=== PATIENT | female | born 1940 | race Hispanic/Latino ===

== ENCOUNTER 2018-08-04 12:55 | Inpatient (IN) | payer MEDICARE, OTHER ==
[~2018-08-04] VITALS: Ht 170.2 cm; Wt 74.0 kg
[~2018-08-04 12:55] MED LIST: AMLODIPINE BESYL5 MG PO; ANALPRAM HC 2.530 GM RC; ANASTROZOLE1 MG PO; ARICEPT5 MG PO; BUPROPION XL150 MG PO; CALCIUM CARBON200 MG PO; COLACE100 MG/10 NG; DEXILANT; DIFLUCAN100 MG PO; FAMOTIDINE20 MG PO; FOLIC ACID1 MG PO; GABAPENTIN300 MG PO; JANUMET XR 50-1 EAC1 PO; KEFLEX500 MG PO; LEVOTHYROXINE150 MCG PO; LORAZEPAM0.5 MG PO; METAMUCIL FIBE3.4 GM PO; MYERBETRIQ; MYRBETRIQ50 MG PO; NAMENDA10 MG PO; OXYBUTYNIN PO; PAROXETINE HCL20 MG PO; PAXIL20 MG; POLYETHYLENE GL17 GM PO; PRAVASTATIN SOD20 MG PO; PRAVASTATIN SOD40 MG; PRAVASTATIN SOD40 MG PO; PREMARIN45 GM VG; Psyllium PO; RANITIDINE HCL300 M1 PO; SENNA-S TABLET1 EA PO; SEROQUEL25 MG PO; VITAMIN B-121000 MC2 SL; VITAMIN D2000 UNIT PO; Z LEVOTHROID; Z.0.DEXILANT60 MG PO; Z.0.PLAVIX75 MG; Z.0.VIIBRYD40 MG
[2018-08-04] MEDS ORDERED: ASPIRIN 81 MG CHEW TAB PO ONE (13:15)
[2018-08-04 13:45] LABS: BASOPHILS # (AUTO) 0.1 (0.0-0.1); BASOPHILS % 0.6 % (0.0-1.0); EOSINOPHILS % 0.4 % (0.0-6.0); HEMATOCRIT 35.2 % (34.2-44.1); HEMOGLOBIN 11.8 g/dL (12.0-16.0); LYMPHOCYTES # (AUTO) 1.6 (1.0-3.2); LYMPHOCYTES % 19.8 % (18.0-39.1); MEAN CORPUSCULAR HEMOGLOBIN 30.1 pg (28-32); MEAN CORPUSCULAR HGB CONC 33.5 g/dL (31-35); MEAN CORPUSCULAR VOLUME 89.8 fL (81-99); MONOCYTES # (AUTO) 0.6 (0.2-0.8); MONOCYTES % 6.7 % (4.4-11.3); NEUTROPHILS # (AUTO) 5.9 (2.1-6.9); NEUTROPHILS % 71.8 % (38.7-80.0); PLATELET COUNT 197 x10e3/uL (140-360); RED BLOOD COUNT 3.92 x10e6/uL (3.6-5.1); RED CELL DISTRIBUTION WIDTH 13.5 % (11.7-14.4)
[2018-08-04 13:54] LABS: INR 0.9
[2018-08-04 14:10] LABS: ALBUMIN 4.2 g/dL (3.5-5.0); ALBUMIN/GLOBULIN RATIO 1.4 (0.8-2.0); ANION GAP 19.4 mmol/L (8-16); CREATININE, SERUM 1.81 mg/dL (0.57-1.11); MAGNESIUM 1.5 MG/DL (1.3-2.1); POTASSIUM 3.4 mmol/L (3.5-5.1)
[2018-08-04 14:30] LABS: CREATINE KINASE MB 1.6 ng/mL (0-5.0); THYROID STIMULATING HORMONE 0.959 uIU/mL (0.350-4.940)
--- NOTE | 2018-08-04 14:35 | Diagnostic Imaging Report ---
EXAMINATION: Head and cervical spine CT without contrast. HISTORY: Syncope, fall, trauma and pain. COMPARISON: Head CT of 02/29/2012 TECHNIQUE: Multidetector axial images were obtained about contrast from the foramen magnum to the vertex and through the cervical spine. The images were reconstructed using brain and bone algorithms. Thin section brain images were reformatted into coronal and sagittal planes. Dose modulation, iterative reconstruction, and/or weight based adjustment of the mA/kV was utilized to reduce the radiation dose to as low as reasonably achievable. HEAD CT FINDINGS: Skull: No lytic or blastic lesions. No fractures. Parenchyma: Progression to moderate confluent mildly frontal white matter chronic microvascular ischemic changes. No mass, hemorrhage or CT evidence of acute vascular insult. Brain volume: Mild generalized volume loss Ventricles: No hydrocephalus or displacement. Arteries: No density suggestive of thrombus. Dural sinuses: No abnormal density. Extra-axial spaces: No abnormal density. Foramen magnum: No mass, Chiari malformation, or basilar invagination. Sella: No obvious mass. Paranasal/mastoid sinuses: Imaged portions unremarkable. CERVICAL SPINE CT FINDINGS: Alignment:Normal alignment and lordosis. Soft tissues: Normal. Vertebrae: Normal height and density. No acute fracture, infection or neoplasm. Degenerative changes: C1-C2: Degenerative changes without stenoses C2-C3: Normal C3-C4: Disc osteophyte complex formation, uncovertebral and facet hypertrophy worst on the right. Moderate right and mild left foraminal stenosis. Mild canal stenoses C4-C5: Uncovertebral and facet hypertrophy mainly on the right. Moderately severe right foraminal stenosis. C5-C6: Disc osteophyte, inflammation, bilateral uncovertebral and facet arthrosis. Moderate it least severe bilateral foraminal stenoses. C6-C7: Unremarkable C7-T1: Unremarkable IMPRESSION: Head CT: 1. No acute postraumatic intracranial hemorrhage. 2. Moderate chronic microvascular ischemic changes. Otherwise no changes compared to head CT on 02/29/2012. Cervical spine CT: 1. No acute fractures or dislocations. 2. Chronic degenerative changes as described. Note: Acute post traumatic spinal cord, vascular or ligamentous injury cannot adequately be assessed with CT. Signed by: Dr. Anne Sosa M.D. on 08/04/2018 2:32 PM
--- NOTE | 2018-08-04 14:42 | Diagnostic Imaging Report ---
Examination: Single AP view of the chest. COMPARISON: 09/16/2017 INDICATION: Syncope DISCUSSION: Lungs are well-inflated. No focal consolidation, pleural effusion, or pneumothorax. Mild, coarse prominence of the pulmonary interstitium is unchanged. Stable cardiomediastinal contour. Surgical clips along the left lateral chest wall. IMPRESSION: No acute cardiopulmonary abnormality. Signed by: Dr. Abelino Ramirez M.D. on 08/04/2018 2:38 PM
[2018-08-04] MEDS ORDERED: PANTOPRAZOLE SO40 MG PO (17:29)
[2018-08-04] MEDS ORDERED: GABAPENTIN300 MG PO (17:29)
[2018-08-04] MEDS ORDERED: JANUMET 50-1,01 EACH PO (17:29)
[2018-08-04] MEDS ORDERED: SODIUM CHLORIDE 0.9% 1000ML 1,000 ML IV SCH (18:00)
[2018-08-04 18:04] LABS: CLARITY,URINE SL CLOUDY (CLEAR); COLOR,URINE YELLOW (YELLOW); KETONES,URINE TRACE (NEGATIVE); LEUKOCYTE ESTERASE ,URINE 1+ (NEGATIVE); NITRITE,URINE NEGATIVE (NEGATIVE); PROTEIN,URINE DIPSTICK NEGATIVE (NEGATIVE); URINE UROBILINOGEN 0.2 mg/dL (0.2 - 1)
[2018-08-04 18:05] LABS: BILIRUBIN,URINE NEGATIVE (NEGATIVE)
[2018-08-04 18:12] LABS: BACTERIA,URINE MANY /HPF
[2018-08-05] VITALS (12 sets, daily range): BP systolic 119–156; BP diastolic 56–97
[2018-08-05] MEDS: SODIUM CHLORIDE 0.9% 1000ML 1,000 ML IV SCH ×2 (04:41→14:48)
[2018-08-05] MEDS ORDERED: NON-FORMULARY MEDICATION (Levothyroxine Sodium 175 MCG) PO SCH (09:00)
[2018-08-05] MEDS: LEVOTHYROXINE SODIUM 75 MCG TAB PO SCH (09:00)
[2018-08-05] MEDS: LEVOTHYROXINE SODIUM 100 MCG TAB PO SCH (09:00)
[2018-08-05] MEDS: AMLODIPINE BESYLATE 5 MG TAB PO SCH (09:05)
[2018-08-05] MEDS: PANTOPRAZOLE SOD 40 MG TABEC PO SCH (09:05)
[2018-08-05] MEDS: LEVOFLOXACIN 500MG/D5W 100ML 100 ML IV SCH (09:05)
[2018-08-05] MEDS: ANASTROZOLE 1 MG TAB PO SCH (09:05)
[2018-08-05] MEDS: CLOPIDOGREL BISULFATE 75 MG TAB PO SCH (09:05)
[2018-08-05 09:18] LABS: CHOL/HDL RATIO 4.3 (3.0-3.6)
[2018-08-05 09:37] LABS: THYROID STIMULATING HORMONE 0.833 uIU/mL (0.350-4.940)
--- NOTE | 2018-08-05 14:08 | History and Physical ---
PRIMARY CARE PHYSICIAN: Dr. Lozada CHIEF COMPLAINT: Confusion. HISTORY OF PRESENT ILLNESS: This is a 78-year-old woman with a history of diabetes mellitus type 2, dementia and depression, now developing worsening confusion. All history has been obtained per the at the bedside. The notes the patient was confused. No other history he can provide, however. The patient was brought to the hospital. Here she was found to have a urinary tract infection and acute kidney injury. She was admitted for further evaluation and management. PAST MEDICAL HISTORY: Dementia, depression, diabetic neuropathy, diabetes mellitus type 2, pyelonephritis, urinary tract infection, hypertension, hyperlipidemia, hypothyroidism, constipation, acute kidney injury. PAST SURGICAL HISTORY: Hysterectomy, cholecystectomy, appendectomy. ALLERGIES: PER ELECTRONIC MEDICAL RECORD. FAMILY/SOCIAL HISTORY: The patient is . She has 3 children. No alcohol, illicits or cigarettes. MEDICATIONS: Per electronic medical record. REVIEW OF SYSTEMS: Unreliable. PHYSICAL EXAMINATION VITAL SIGNS: Have been reviewed. GENERAL APPEARANCE: A tired-appearing woman resting in bed. HEENT: Anicteric. CARDIOVASCULAR: Normal S1 and S2. LUNGS: Moderate breath sounds. ABDOMEN: Soft, nontender, nondistended. EXTREMITIES: No edema or calf tenderness. NEUROLOGIC: Confused. She moves all extremities. Alert and oriented times 2. LABS: Reviewed. MEDICATIONS: Reviewed. ASSESSMENT: This is a 78-year-old woman. 1. Urinary tract infection. 2. Acute kidney injury. 3. Diabetes mellitus, type 2. 4. Hypothyroidism. 5. Metabolic acidosis 6. Hypokalemia. 7. Diabetic neuropathy. 8. Acute metabolic encephalopathy. PLAN 1. Rehydrate the patient. 2. Antibiotics. 3. Follow up cultures. 4. Hemoglobin A1c and lipid panel. 5. Imaging has been reviewed and is negative. 6. Continue Plavix for stroke prophylaxis. 7. Use PPI for GI prophylaxis. 8. Use SCDs for DVT prophylaxis. 9. Follow up labs. Job#: [id number]
--- NOTE | 2018-08-05 15:20 | Consultation ---
DATE OF CONSULTATION: August 05, 2018 CARDIOLOGY CONSULTATION REQUESTING PHYSICIAN: Dr. Clinton Anderson REASON FOR CONSULTATION: Syncope. HISTORY OF PRESENT ILLNESS: This is a 78-year-old woman with history of diabetes mellitus, hypertension, hyperlipidemia, hypothyroidism, dementia, and frequent urinary tract infections who was found down by her family. All history is obtained from the family, from the daughter at bedside due to the patient's baseline dementia and altered mental status. The family reports the patient has been more confused for the last 2 weeks and has been hallucinating people who are not present. The patient has not endorsed any chest pain, shortness of breath, palpitations, edema, or orthopnea. She has not reported any fever, chills, or cough. Yesterday, the patient's found that the patient on the ground. The daughter is unclear if the patient had lost consciousness. REVIEW OF SYSTEMS: Negative, except as per HPI. PAST MEDICAL HISTORY 1. Diabetes mellitus. 2. Hypertension. 3. Hyperlipidemia. 4. Hypothyroidism. 5. Frequent urinary tract infections. 6. Dementia. PAST SURGICAL HISTORY 1. Hysterectomy. 2. Cholecystectomy. 3. Appendectomy. ALLERGIES: PLEASE SEE EMR. MEDICATIONS: Please see medication list. SOCIAL HISTORY: No tobacco, alcohol, or illicit drugs. FAMILY HISTORY: Noncontributory to current illness. PHYSICAL EXAMINATION VITALS: Temperature 96.3 degrees, pulse 92, respiratory rate 18, blood pressure 119/50, oxygen saturation 99% on room air. GENERAL: Elderly woman, well-developed, well-nourished, pleasantly confused. HEENT: Normocephalic and atraumatic. Pupils are equal. No scleral icterus. NECK: Supple. No thyromegaly or cervical lymphadenopathy. No carotid bruits. LUNGS: Clear to auscultation bilaterally. No wheezes or crackles. CARDIOVASCULAR: Normal rate, regular rhythm. No murmur. Normal S1 and S2. ABDOMEN: Soft. Nontender. EXTREMITIES: No edema. NEURO: Nonfocal exam. LABS: WBC 8.2, hemoglobin 11.8, hematocrit 35.2, platelets 197. Sodium 142, potassium 3.4, chloride 106, CO2 19, BUN 34, and creatinine 1.81. Cholesterol 150, triglycerides 192, LDL 77, HDL 35. Troponin is 0.004. Urine culture growing gram-negative rods. CT with no acute fracture or dislocations. Chronic degenerative changes. CT brain, no acute posttraumatic intracranial hemorrhage. Chronic microvascular ischemic changes, otherwise no change compared to CT head February 29, 2012. Chest x-ray, no acute cardiopulmonary abnormality. EKG with normal sinus rhythm, ST and T wave abnormality, prolonged QT. IMPRESSION 1. Syncope. 2. Urinary tract infection. 3. Acute kidney injury. 4. Diabetes mellitus. 5. Hypertension. 6. Hyperlipidemia. 7. Hypothyroidism. 8. Altered mental status. 9. Dementia. RECOMMENDATIONS: Carotid Doppler and echocardiogram had been ordered. We will review the images once they are available. Monitor patient on telemetry for any arrhythmias. Antibiotics per primary service. Suspect patient's altered mental status may be delirium on top of baseline dementia. Defer further evaluation to primary. Thank you for this consult. We will continue to follow. Job#: [id number] SERNIA LOVE
[2018-08-05] MEDS: TRAZODONE HCL 50 MG TAB PO SCH (20:41)
[2018-08-05] MEDS: DONEPEZIL HCL 5 MG TAB PO SCH (20:41)
[2018-08-05] MEDS: PAROXETINE HCL 20 MG TAB PO SCH (20:41)
[2018-08-05] MEDS: GABAPENTIN 300 MG CAP PO SCH (20:41)
[2018-08-05] MEDS: METRONIDAZOLE 500MG/NS 100ML 100 ML IV SCH (22:31)
[2018-08-06] VITALS (10 sets, daily range): BP systolic 130–158; BP diastolic 60–84
--- NOTE | 2018-08-06 04:01 | Consultation ---
DATE OF CONSULTATION: August 04, 2018 NEUROLOGY CONSULTATION HISTORY OF PRESENT ILLNESS: Ms. Lawson is a 78-year-old right-hand dominant woman with past medical history significant for hyperlipidemia, diabetes mellitus type 2, thyroid disease, and dementia, probably the Alzheimer's type, admitted to [facility] on August 04, 2018 with worsening confusion. Unfortunately, due to the patient's known history of dementia and superimposed metabolic encephalopathy, the patient is unable to provide history. The history is provided by family members who are at the bedside. The patient's family members report significantly worsened confusion beginning several days ago. In addition to worsening of baseline confusion, the patient's family endorses visual hallucinations. Specifically, the patient had seen relatives as well as inanimate objects moving along the [place]. The patient's family members endorse poor oral intake over the last several days as well as poor sleep. Ms. Lawson experienced a fall without injury on the day of admission. The fall prompted the patient's presentation to the emergency center at [facility]. In addition to the aforementioned symptoms, Ms. Lawson endorses burning with urination as well as urinary urgency. Neither the patient nor her family endorsed a visual field cut or other disturbance, dysarthria, aphasia, facial droop, hemiparesis, hemihypesthesia, worsening gait impairment, or dizziness. As stated above, Ms. Lawson presented to the emergency center at [facility] on August 04, 2018 for evaluation of her multiple symptoms. As part of her routine evaluation, the patient was found to have a urinary tract infection as well as acute kidney injury secondary to dehydration. The patient was admitted to [facility] as an inpatient for further evaluation and treatment. The patient's family reports Ms. Lawson was diagnosed with dementia, probably of the Alzheimer's type between 2 to 4 years ago. Ms. Lawson is under the care of a neurologist at [facility]. Initially, the patient was treated with donepezil 10 mg by mouth at bedtime daily. Sometime later, treatment with memantine 10 mg by mouth twice daily was prescribed in addition to donepezil. However, for unknown reasons, treatment with memantine was recently discontinued. The patient's family members report being told approximately 1-1/2 years ago, Ms. Lawson has [id number] dementia. REVIEW OF SYSTEMS: Diarrhea, burning with urination, urinary urgency, confusion, generalized weakness, and fall. Otherwise, the 12-point review of systems is negative. PAST MEDICAL HISTORY: Hyperlipidemia, diabetes mellitus type 2 complicated by peripheral neuropathy, thyroid disease, multiple urinary tract infections, gastroesophageal reflux disease, left breast cancer in remission for 18 months, dementia, probably of the Alzheimer's type, and possible rheumatic fever as a child. PAST SURGICAL HISTORY: Left breast lumpectomy, hysterectomy, bilateral partial knee replacements, cholecystectomy, bladder suspension, appendectomy, and bilateral cataract removal. PAST HOSPITALIZATIONS: Surgeries/procedures as listed, childbirth x3, and multiple urinary tract infections. FAMILY MEDICAL HISTORY: Hypertension, coronary artery disease with myocardial infarctions, strokes, and cancer. SOCIAL HISTORY: Ms. Lawson is . She is retired. The patient and her family members do not endorse current or prior tobacco, alcohol, or recreational drug use. HOME MEDICATIONS: Please see the list of home medications available in the electronic medical records. ALLERGIES: PENICILLIN, CODEINE, HYDROCODONE, RAMIPRIL, AND SUCRALFATE. NO KNOWN FOOD ALLERGIES. NO KNOWN ALLERGIES TO LATEX. NO KNOWN ALLERGIES TO IODINE OR OTHER CONTRAST MATERIALS. PHYSICAL EXAMINATION VITAL SIGNS: Height 67 inches, weight 164 pounds, BMI 25.7 kg/m sq, blood pressure 149/70 mmHg, pulse 82 beats per minute, respiratory rate 16 breaths per minute, and oxygen saturation 99% on room air. GENERAL: The patient is awake and alert, tearful throughout the encounter. HEENT: Normocephalic, atraumatic. Pupils are surgical. Moist mucous membranes. NECK: Supple. No appreciable thyromegaly. No appreciable carotid bruits. CARDIOVASCULAR: S1 and S2. Regular rate and rhythm. No murmurs, rubs, or gallops. RESPIRATORY: Clear to auscultation bilaterally. No wheezes, rhonchi, or rales. EXTREMITIES: No clubbing, cyanosis, or edema. The posterior tibial and dorsalis pedis pulses are 1+ and symmetric. SKIN: Warm and dry. There is a small abrasion over the right knee. NEUROLOGIC MEMORY/ATTENTION: The patient is awake and alert. Ms. Lawson becomes more tearful when asked orientation questions. She is unable to state her full name. CRANIAL NERVES: Cranial nerve I-not tested. Cranial nerve II, III, IV, and -pupils are surgical. Extraocular movements are intact. No nystagmus. Cranial nerve V-sensation to light touch and pinprick is intact in the bilateral V1 through V3 distributions. Strength in the temporalis and masseter muscles is within normal limits. Cranial nerve VII-the face is symmetric as are all facial movements. Strength is within normal limits. Cranial nerve VIII-hearing is diminished to finger rub bilaterally. Cranial nerve IX, X-the soft palate elevates equally and symmetrically. Cranial nerve XI-normal strength of the bilateral sternocleidomastoid and trapezius muscles. Cranial nerve XII-the tongue protrudes midline and moves symmetrically from side to side. STRENGTH: Bulk is normal. Strength is 5/5 in the bilateral deltoids, biceps, triceps, wrist flexors and extensors, finger flexors and extensors, intrinsic hand muscles, hip flexors, knee flexors and extensors, ankle dorsiflexion and plantarflexion, and intrinsic foot muscles. Tone is normal. DTRs: Deep tendon reflexes are 1+ and symmetric at the triceps, biceps, brachioradialis, and patellas. Deep tendon reflexes are absent and symmetric at the Achilles. Plantar responses are flexor bilaterally. SENSATION: Sensation is intact to light touch in both arms and both legs. CEREBELLAR: Ms. Lawson has some difficulty performing [id number] and heel-marcelo movements due to a lack of understanding of the instructions. Despite this, there is no dysmetria or other impairment appreciated. GAIT: The patient was observed to ambulate with physical therapy. Ms. Lawson utilizes rolling walker. Gait was slowed with a shortened stride lengths. Spontaneous gait appeared unsteady. SPEECH: Spontaneous speech is normal without appreciable dysarthria or aphasia. Repetition is intact. INVOLUNTARY MOVEMENTS: None. PRONATOR DRIFT: None. LABORATORY DATA: The patient's comprehensive metabolic panel is significant for a potassium of 3.4, carbon dioxide 19, anion gap 19.4, BUN of 34, creatinine of 1.81, and an estimated GFR of 27. Cardiac enzymes are negative x1. Lipase 21, TSH is 0.959, and hemoglobin A1c 5.6. Total cholesterol 150, triglycerides 192, LDL cholesterol 77, and HDL cholesterol 35. The CBC with differential and platelets reveals a white blood cell count of 8.23 with a normal differential. The hemoglobin and hematocrit are 11.5 and 35.2, respectively. The platelet count is 197. The coagulation profile is within normal limits. A urinalysis was significant for a specific gravity of 1.030, 1+ leukocyte esterase, 6-10 white blood cells, and many bacteria. A urine culture collected upon admission is growing Gram-negative bacilli. DIAGNOSTIC STUDIES: Electrocardiogram on August 04, 2018: Normal sinus rhythm at 66 beats per minute. Chest x-ray on August 04, 2018: No acute cardiopulmonary abnormality. CT of the brain without contrast on August 04, 2018: On my review, there is no evidence of recent large territorial ischemia, hemorrhage, mass, or mass affect. There is diffuse cerebral atrophy. There are findings compatible with moderate chronic small vessel ischemic disease. The neuroradiologist noted no significant changes when compared to the CT of brain performed on February 29, 2012. CT of the cervical spine without contrast on August 04, 2018: 1. No acute fractures or dislocations. 2. Chronic degenerative changes as described. Bilateral carotid artery ultrasound with Doppler on August 05, 2018: Atherosclerosis without hemodynamically significant stenosis at the bilateral carotid bulbs and bifurcations. There was antegrade flow in the bilateral vertebral arteries. ASSESSMENT AND PLAN: Ms. Lawson is a 78-year-old right-hand dominant woman with multiple medical problems, including dementia, probably of the Alzheimer's type, admitted to [facility] with worsening confusion and visual hallucinations in the setting of a urinary tract infection and acute kidney injury. Other than confusion and disorientation, the patient's neurological examination is nonfocal. Her laboratory data and other diagnostic studies have been reviewed and are documented above. Based on the patient's history and findings on her neurological examination, I strongly suspect Ms. Lawson has a moderately severe dementia, probably of the Alzheimer's type. However, the degree of small vessel ischemic disease seen on her CT of the brain without contrast indicates a possible component of vascular dementia as well. The patient's recent worsening confusion is due to the presence of a urinary tract infection and acute kidney injury. RECOMMENDATIONS 1. Continue intravenous antibiotics for the urinary tract infection. 2. Continue fluid resuscitation for acute kidney injury. 3. Continue the patient's home medication of donepezil 10 mg by mouth at bedtime daily. 4. As mentioned in the history of present illness, the patient's family members report that patient has not slept well for several days. A lack of sleep will exacerbate the underlying dementia as well as the confusion from the urinary tract infection and acute kidney injury. Therefore, Ms. Lawson will be prescribed trazodone 25 mg by mouth at bedtime for sleep. 5. Avoid treatment with sedative/hypnotic and pain medications as these will alter the sensorium. 6. Employ environmental cues to minimize the occurrence of delirium. 7. Defer treatment of the remaining medical comorbidities to the primary and other services following the patient. Job#: [id number] TRISTA LOVE
[2018-08-06] MEDS: SODIUM CHLORIDE 0.9% 1000ML 1,000 ML IV SCH ×5 (04:12→19:15)
[2018-08-06] MEDS: LEVOTHYROXINE SODIUM 75 MCG TAB PO SCH (06:04)
[2018-08-06] MEDS: LEVOTHYROXINE SODIUM 100 MCG TAB PO SCH (06:04)
[2018-08-06] MEDS: METRONIDAZOLE 500MG/NS 100ML 100 ML IV SCH ×3 (06:04→22:59)
[2018-08-06 08:26] LABS: ANION GAP 12.5 mmol/L (8-16); CALCIUM 9.4 mg/dL (8.4-10.2); CREATININE, SERUM 1.31 mg/dL (0.57-1.11); POTASSIUM 3.5 mmol/L (3.5-5.1)
[2018-08-06] MEDS: PANTOPRAZOLE SOD 40 MG TABEC PO SCH (09:36)
[2018-08-06] MEDS: LEVOFLOXACIN 500MG/D5W 100ML 100 ML IV SCH (09:36)
[2018-08-06] MEDS: AMLODIPINE BESYLATE 5 MG TAB PO SCH (09:36)
[2018-08-06] MEDS: ANASTROZOLE 1 MG TAB PO SCH (09:36)
[2018-08-06] MEDS: CLOPIDOGREL BISULFATE 75 MG TAB PO SCH (09:36)
[2018-08-06] MEDS: DONEPEZIL HCL 5 MG TAB PO SCH (21:03)
[2018-08-06] MEDS: TRAZODONE HCL 50 MG TAB PO SCH (21:03)
[2018-08-06] MEDS: PAROXETINE HCL 20 MG TAB PO SCH (21:03)
[2018-08-06] MEDS: GABAPENTIN 300 MG CAP PO SCH (21:03)
[2018-08-07] VITALS (7 sets, daily range): BP systolic 113–163; BP diastolic 62–79
--- NOTE | 2018-08-07 03:32 | Progress Note ---
DATE: August 06, 2018 TIME OF SERVICE: 7:40 a.m. OVERNIGHT: The patient has some diarrhea. REVIEW OF SYSTEMS: Denies any dizziness, chest pain, shortness of breath, fever, chills, sweats, nausea, vomiting. PHYSICAL EXAMINATION VITAL SIGNS: Reviewed. GENERAL APPEARANCE: A tired-appearing woman resting in bed. HEENT: Anicteric. CARDIOVASCULAR: Normal S1 and S2. LUNGS: Moderate breath sounds. ABDOMEN: Soft, nontender, nondistended. EXTREMITIES: No edema. SKIN: Dry. PSYCHIATRIC: Flat affect. NEUROLOGICAL: More alert, appropriate. Moving all extremities. LABS: Reviewed. MEDICATIONS: Reviewed. ASSESSMENT AND PLAN: A 78-year-old woman with; 1. Urinary tract infection with gram-negative rods. 2. Acute kidney injury. 3. Diabetes mellitus type 2. Hemoglobin A1c 5.6, LDL 77. 4. Acute diarrhea. 5. Hypothyroidism. 6. Metabolic acidosis. 7. Hypokalemia. 8. Diabetic neuropathy. 9. Acute metabolic encephalopathy. PLAN 1. Check basic metabolic panel. 2. Follow up echocardiogram. 3. Follow up carotid ultrasound. 4. Physical therapy. 5. May need skilled facility placement for rehab needs. Job#: [id number] TRISTA
[2018-08-07] MEDS: LEVOTHYROXINE SODIUM 100 MCG TAB PO SCH (06:06)
[2018-08-07] MEDS: LEVOTHYROXINE SODIUM 75 MCG TAB PO SCH (06:06)
[2018-08-07] MEDS: METRONIDAZOLE 500MG/NS 100ML 100 ML IV SCH ×3 (06:06→21:54)
--- NOTE | 2018-08-07 07:13 | Progress Note ---
DATE: August 06, 2018 CARDIOLOGY PROGRESS NOTE SUBJECTIVE: The patient is without any complaints this morning. She denies any chest pain, shortness of breath, syncope, or dizziness. CARDIOVASCULAR MEDICATIONS: Plavix 75 mg p.o. daily, amlodipine 5 mg p.o. daily, levothyroxine 75 mcg p.o. daily, and gabapentin 300 mg p.o. h.s. LABS: Sodium 147, potassium 3.5, BUN 16, creatinine 1.31, calcium 9.4. Carotid Doppler from yesterday with no significant stenosis noted in the carotid system. OBJECTIVE VITAL SIGNS: Temperature 96.8, pulse 70, respiratory rate 16, blood pressure 134/72, oxygen saturation 97% on room air. GENERAL: Alert and oriented x2, resting comfortably in bed. Continues to have moments of confusion per . NECK: Supple. No JVD noted. LUNGS: Clear to auscultation throughout. No wheezing. No rhonchi or crackles. CARDIOVASCULAR: Regular rate and rhythm. Normal S1 and S2. ABDOMEN: Soft and nontender. EXTREMITIES: Lower extremities, no edema. IMPRESSION 1. Reported syncope. 2. Urinary tract infection. 3. Acute renal injury. 4. Diabetes mellitus. 5. Hypertension. 6. Hyperlipidemia. 7. Hypothyroidism. 1. Altered mental status. 2. Reported dementia. RECOMMENDATIONS: Echocardiogram completed, awaiting review and recommendations will follow. Maintain this patient on telemetry to monitor for any arrhythmias. Antimicrobial therapy per primary team. Telemetry; normal sinus rhythm so far with no ectopy noted. We will continue to monitor this patient closely. Dictated by: Rosario Reeder NP Job#: [id number] TRISTA
[2018-08-07] MEDS: AMLODIPINE BESYLATE 5 MG TAB PO SCH (09:57)
[2018-08-07] MEDS: CLOPIDOGREL BISULFATE 75 MG TAB PO SCH (09:57)
[2018-08-07] MEDS: ANASTROZOLE 1 MG TAB PO SCH (09:57)
[2018-08-07] MEDS: LEVOFLOXACIN 500MG/D5W 100ML 100 ML IV SCH (09:57)
[2018-08-07] MEDS: PANTOPRAZOLE SOD 40 MG TABEC PO SCH (09:58)
--- NOTE | 2018-08-07 11:08 | Progress Note ---
DATE: August 07, 2018 CARDIOLOGY PROGRESS NOTE SUBJECTIVE: Patient is without any complaints this morning. She states that she feels very well. Denies any shortness of breath, chest pain, palpitations, or dizziness. OBJECTIVE VITAL SIGNS: Temperature 96.0, pulse 62, respiratory rate 16, blood pressure 113/62, oxygen saturation 92% on room air. GENERAL: Alert and oriented x3 this morning, resting comfortably in the chair, does not appear to be in any acute distress. at the bedside. NECK: Supple. No JVD noted. No carotid bruits. LUNGS: Clear to auscultation throughout. No wheezing. No rhonchi or crackles. CARDIOVASCULAR: Regular rate and rhythm. Normal S1, S2. ABDOMEN: Soft, nontender. LOWER EXTREMITIES: No edema. CARDIOVASCULAR MEDICATIONS 1. Amlodipine 5 mg p.o. daily. 2. Plavix 75 p.o. daily. 3. Levothyroxine 175 mcg p.o. daily. 4. Gabapentin 300 mg p.o. daily. LABS: No new labs today. TELEMETRY: Sinus rhythm. IMPRESSION 1. Reported syncope. 2. Urinary tract infection. 3. Acute renal injury. 1. Diabetes mellitus. 2. Hypertension. 3. Hyperlipidemia. 4. Hypothyroidism. 5. Altered mental status which has improved and also baseline dementia. RECOMMENDATIONS: Continue with the above-listed cardiac medications. Awaiting echocardiogram. Recommendations to follow. Maintain on telemetry. Continue to monitor this patient very closely. Dictated by: Rosario Reeder NP Job#: [id number] SWAPNA
[2018-08-07] MEDS: SODIUM CHLORIDE 0.9% 1000ML 1,000 ML IV SCH (11:59)
--- NOTE | 2018-08-07 19:06 | Progress Note ---
DATE: August 07, 2018 TIME OF SERVICE: 11:30 a.m. OVERNIGHT: No acute events. REVIEW OF SYSTEMS: Patient denies chest pain, shortness of breath, or dizziness. Patient denies nausea, vomiting, further diarrhea, fever, chills, sweats, or leg pain. PHYSICAL EXAMINATION VITAL SIGNS: T 96.8, P 62, R 16, BP 113/62, SpO2 96% on RA. GENERAL APPEARANCE: This is a tired-appearing female resting in bed. HEENT: Normocephalic. Oral mucosa moist and intact. Sclerae pale, moist, and intact. No sinus tenderness. Trachea midline without JVD. CV: S1 and S2 appreciated with regular rate. No clicks, murmurs, or rubs appreciated. LUNGS: Bilateral breath sounds moderate in all [place] with fair excursion. ABDOMEN: Soft, nontender, and nondistended. EXTREMITIES: Without edema. DT/DP pulses faint and irregular. SKIN: Dry. PSYCHIATRIC: Flat affect. NEUROLOGIC: He moves all extremities and follows one step command. Oriented to person and place with multiple prompting. LABS: Reviewed. MEDICATIONS 1. Flagyl q8 hours IV. 2. NS 75 mL an hour. 3. Protonix 40 mg a.c. breakfast. 4. Levaquin 100 mL q.24 hours IV. 5. Plavix 75 mg p.o. daily. 6. Anastrozole 1 mg p.o. daily. 7. Amlodipine besylate 5 mg p.o. daily. 8. Synthroid 75 mcg daily at 0600. 9. Synthroid 100 mcg daily at 0600. 10. Aricept 10 mg p.o. at bedtime. 11. Trazodone 25 mg at bedtime. 12. Paxil 20 mg p.o. at bedtime. 13. Gabapentin 300 mg at bedtime. 14. p.r.n. Tylenol. ASSESSMENT AND PLAN: This is a 78-year-old woman with; 1. Urinary tract infection with gram-negative rods. Continue IV antibiotics. 2. Acute kidney injury. IV fluids at 75 mL an hour. We will follow BMP in the a.m. 3. Diabetes mellitus type 2. 4. Acute diarrhea, monitor. 5. Hypothyroidism, on Synthroid. 6. Metabolic acidosis. A.m. life panel. 7. Hypokalemia. Monitor values in a.m. 8. Diabetic neuropathy, on gabapentin. 9. Acute metabolic encephalopathy. Treatment and plan as above. 10. Prophylaxis. Protonix and SCDs. DISPOSITION: Follow up a.m. basic metabolic panel; echo and carotid preliminary results seen. Final cardiology review pending. Discussed with RN at bedside to relay the physical therapy and RN. Recommend SNF placement for rehab needs. For her case management notes, family provided with list of SNF and will decide early this week. Dictated by: Carmen Geronimo NP Job#: [id number] VAS
[2018-08-07] MEDS: PAROXETINE HCL 20 MG TAB PO SCH (20:35)
[2018-08-07] MEDS: GABAPENTIN 300 MG CAP PO SCH (20:35)
[2018-08-07] MEDS: TRAZODONE HCL 50 MG TAB PO SCH (20:35)
[2018-08-07] MEDS: DONEPEZIL HCL 5 MG TAB PO SCH (20:35)
[2018-08-08] VITALS (7 sets, daily range): BP systolic 145–187; BP diastolic 63–88
[2018-08-08] MEDS: ACETAMINOPHEN 325 MG TAB PO PRN ×2 (05:27→10:46)
[2018-08-08] MEDS: LEVOTHYROXINE SODIUM 75 MCG TAB PO SCH (05:27)
[2018-08-08] MEDS: LEVOTHYROXINE SODIUM 100 MCG TAB PO SCH (05:27)
[2018-08-08] MEDS: METRONIDAZOLE 500MG/NS 100ML 100 ML IV SCH ×2 (05:27→12:36)
[2018-08-08 06:35] LABS: ALBUMIN 3.8 g/dL (3.5-5.0); ALBUMIN/GLOBULIN RATIO 1.4 (0.8-2.0); ANION GAP 11.9 mmol/L (8-16); CALCIUM 8.1 mg/dL (8.4-10.2); CREATININE, SERUM 1.23 mg/dL (0.57-1.11)
[2018-08-08 06:39] LABS: POTASSIUM 2.9 mmol/L (3.5-5.1)
[2018-08-08] MEDS ORDERED: POTASSIUM CHLORIDE 20 MEQ TAB CR PO STA (07:14)
[2018-08-08] MEDS ORDERED: POTASSIUM CHLORIDE 10MEQ EA PO ONE (07:15)
[2018-08-08] MEDS: PANTOPRAZOLE SOD 40 MG TABEC PO SCH (10:25)
[2018-08-08] MEDS: ANASTROZOLE 1 MG TAB PO SCH (10:25)
[2018-08-08] MEDS: LEVOFLOXACIN 500MG/D5W 100ML 100 ML IV SCH (10:25)
[2018-08-08] MEDS: AMLODIPINE BESYLATE 5 MG TAB PO SCH (10:25)
[2018-08-08] MEDS: CLOPIDOGREL BISULFATE 75 MG TAB PO SCH (10:25)
[2018-08-08] MEDS: TRAMADOL HCL 50 MG TAB PO PRN ×2 (12:20→22:00)
[2018-08-08] MEDS: SODIUM CHLORIDE 0.9% 1000ML 1,000 ML IV SCH (12:36)
--- NOTE | 2018-08-08 14:15 | Progress Note ---
DATE: August 08, 2018 CARDIOLOGY PROGRESS NOTE SUBJECTIVE: The patient denies chest pain or shortness of breath. OBJECTIVE VITAL SIGNS: Temperature 96.9 degrees, pulse 78, respiratory rate 16, blood pressure 172/81, oxygen saturation 94% on room air. GENERAL: Elderly woman in no acute distress. Awake and alert. LUNGS: Clear to auscultation bilaterally. No wheezes or crackles. CARDIOVASCULAR: Normal rate, regular rhythm. No murmur. Normal S1 and S2. ABDOMEN: Soft. Nontender. EXTREMITIES: No edema. CARDIAC MEDICATIONS: 1. Plavix 75 mg p.o. daily. 2. Amlodipine 5 mg p.o. daily. 3. Levothyroxine 175 mcg p.o. daily. LABS: Sodium 141, potassium 2.9, chloride 110, CO2 of 22, BUN 12, creatinine 1.23. TELEMETRY: Normal sinus rhythm. IMPRESSION 1. Suspected syncope. 2. Urinary tract infection. 3. Acute kidney injury. 4. Diabetes mellitus. 5. Hypertension. 6. Hyperlipidemia. 7. Hypothyroidism. 8. Dementia. RECOMMENDATIONS: Carotid Doppler without evidence of hemodynamically significant stenosis. No evidence of arrhythmias on telemetry. Echocardiogram is pending. Antibiotics per primary service. Continue current cardiac medications. Further recommendations to follow. Thank you for this consult. Job#: [id number]
[2018-08-08] MEDS ORDERED: CYCLOBENZAPRINE HCL 10 MG TAB PO SCH (15:00)
[2018-08-08] MEDS: PAROXETINE HCL 20 MG TAB PO SCH (21:00)
[2018-08-08] MEDS: CYCLOBENZAPRINE HCL 10 MG TAB PO SCH (21:00)
[2018-08-08] MEDS: TRAZODONE HCL 50 MG TAB PO SCH (21:16)
[2018-08-08] MEDS: GABAPENTIN 300 MG CAP PO SCH (21:17)
[2018-08-08] MEDS: DONEPEZIL HCL 5 MG TAB PO SCH (21:17)
[2018-08-09] VITALS (8 sets, daily range): BP systolic 113–211; BP diastolic 59–88
[2018-08-09] MEDS: METRONIDAZOLE 500MG/NS 100ML 100 ML IV SCH ×4 (00:43→22:08)
[2018-08-09] MEDS: NIFEDIPINE CR 30 MG TAB PO SCH ×2 (06:00→18:45)
[2018-08-09] MEDS: SODIUM CHLORIDE 0.9% 1000ML 1,000 ML IV SCH ×2 (06:20→16:03)
[2018-08-09] MEDS: LEVOTHYROXINE SODIUM 75 MCG TAB PO SCH (06:21)
[2018-08-09] MEDS: LEVOTHYROXINE SODIUM 100 MCG TAB PO SCH (06:21)
[2018-08-09 06:35] LABS: BASOPHILS % 0.6 % (0.0-1.0); EOSINOPHILS # (AUTO) 0.1 (0.0-0.4); EOSINOPHILS % 1.6 % (0.0-6.0); HEMATOCRIT 32.7 % (34.2-44.1); HEMOGLOBIN 10.8 g/dL (12.0-16.0); LYMPHOCYTES # (AUTO) 2.1 (1.0-3.2); LYMPHOCYTES % 29.3 % (18.0-39.1); MEAN CORPUSCULAR HEMOGLOBIN 29.8 pg (28-32); MEAN CORPUSCULAR VOLUME 90.1 fL (81-99); MONOCYTES # (AUTO) 0.6 (0.2-0.8); MONOCYTES % 8.5 % (4.4-11.3); NEUTROPHILS # (AUTO) 4.2 (2.1-6.9); NEUTROPHILS % 59.6 % (38.7-80.0); PLATELET COUNT 139 x10e3/uL (140-360); RED BLOOD COUNT 3.63 x10e6/uL (3.6-5.1); RED CELL DISTRIBUTION WIDTH 13.7 % (11.7-14.4)
[2018-08-09 08:33] LABS: ANION GAP 16.7 mmol/L (8-16); CALCIUM 8.5 mg/dL (8.4-10.2); CREATININE, SERUM 1.03 mg/dL (0.57-1.11); MAGNESIUM 1.2 MG/DL (1.3-2.1)
[2018-08-09 08:42] LABS: POTASSIUM 2.7 mmol/L (3.5-5.1)
[2018-08-09] MEDS: CYCLOBENZAPRINE HCL 10 MG TAB PO SCH ×3 (08:56→21:00)
[2018-08-09] MEDS: ANASTROZOLE 1 MG TAB PO SCH (08:56)
[2018-08-09] MEDS: PANTOPRAZOLE SOD 40 MG TABEC PO SCH (08:56)
[2018-08-09] MEDS: LEVOFLOXACIN 500MG/D5W 100ML 100 ML IV SCH (08:56)
[2018-08-09] MEDS: CLOPIDOGREL BISULFATE 75 MG TAB PO SCH (08:56)
[2018-08-09] MEDS: ACETAMINOPHEN 325 MG TAB PO PRN (09:00)
[2018-08-09] MEDS ORDERED: POTASSIUM CHLORIDE 20MEQ/100ML 200 ML IV ONE (11:15)
[2018-08-09] MEDS ORDERED: POTASSIUM CHLORIDE 20MEQ/15ML UDC PO ONE (11:15)
[2018-08-09] MEDS ORDERED: SODIUM CHLORIDE 0.9% 50ML 50 ML ONE (11:51)
--- NOTE | 2018-08-09 12:38 | Progress Note ---
DATE: August 09, 2018 CARDIOLOGY PROGRESS NOTE SUBJECTIVE: The patient denies chest pain or shortness of breath. She reports she feels better. OBJECTIVE VITAL SIGNS: Temperature 96.3 degrees, pulse 65, respiratory rate 18, blood pressure 169/76, oxygen saturation 99% on room air. GENERAL: Elderly woman in no acute distress. Awake and alert. LUNGS: Clear to auscultation bilaterally. No wheezes or crackles. CARDIOVASCULAR: Normal rate, regular rhythm. No murmur. Normal S1 and S2. ABDOMEN: Soft. Nontender. EXTREMITIES: No edema. CARDIAC MEDICATIONS 1. Plavix 75 mg p.o. daily. 2. Levothyroxine 175 mcg p.o. daily. 3. Nifedipine 60 mg p.o. q.12 h. LABS: WBC 7.06, hemoglobin 10.8, hematocrit 32.7, platelets 139. Sodium 140, potassium 2.7, chloride 109, CO2 17, BUN 12, creatinine 1.03. TELEMETRY: Normal sinus rhythm. IMPRESSION 1. Suspected syncope. 2. Urinary tract infection. 3. Acute kidney injury, improved. 4. Diabetes mellitus. 5. Hypertension. 6. Hyperlipidemia. 7. Hypothyroidism. 8. Dementia. RECOMMENDATIONS: Carotid Doppler was without evidence of hemodynamically significant stenosis. No evidence of arrhythmia on telemetry. Echocardiogram demonstrated normal LV function with impaired relaxation. No significant valvular disease was present. Antibiotics per primary service. Continue current cardiac medications. No further cardiac evaluation is indicated at this time. However, the patient's blood pressure remains elevated. No GRACE or ARB at this time given recent MANOJ. We will, therefore, start Bystolic. Thank you for this consult. We will continue to follow. Job#: [id number]
--- NOTE | 2018-08-09 20:24 | Progress Note ---
DATE: August 08, 2018 TIME: 8:05 a.m. OVERNIGHT: No events. REVIEW OF SYSTEMS: Denies any dizziness, chest pain, shortness of breath, fever, chills, sweats, nausea, vomiting, diarrhea. PHYSICAL EXAMINATION: VITAL SIGNS: Reviewed. GENERAL APPEARANCE: Tired-appearing woman resting in bed. HEENT: Anicteric. CARDIOVASCULAR: Normal S1 and S2. LUNGS: Moderate breath sounds. ABDOMEN: Soft, nontender, nondistended. EXTREMITIES: No edema. SKIN: Dry. PSYCHIATRIC: Flat affect. NEUROLOGICAL: Alert. LABS: Reviewed. MEDICATIONS: Reviewed. ASSESSMENT: A 78-year-old woman. 1. Escherichia coli urinary tract infection. 2. Acute kidney injury. 3. Diabetes mellitus type 2. Hemoglobin A1c 5.6, LDL 77. 4. Acute diarrhea. 5. Hypothyroidism. 6. Metabolic acidosis. 7. Hypokalemia. 8. Diabetic neuropathy. 9. Acute metabolic encephalopathy. PLAN: 1. Continue treatment for E. coli urinary tract infection. 2. Renal function improving. 3. Replace potassium. 4. Follow up carotid Doppler. 5. Skilled facility placement is pending. Job#: [id number]
--- NOTE | 2018-08-09 20:27 | Progress Note ---
DATE: August 09, 2018 TIME OF SERVICE: 8:15 a.m. OVERNIGHT: No events. REVIEW OF SYSTEMS: Denies any dizziness, chest pain, shortness of breath, fever, chills, sweats, nausea, vomiting, diarrhea. PHYSICAL EXAMINATION VITAL SIGNS: Reviewed. GENERAL: A tired-appearing woman, resting in bed. HEENT: Anicteric. CARDIOVASCULAR: Normal S1 and S2. LUNGS: Normal breath sounds. ABDOMEN: Soft, nontender, nondistended. EXTREMITIES: No edema. SKIN: Dry. PSYCHIATRIC: Flat affect. NEUROLOGICAL: Alert and appropriate. LABS: Reviewed. MEDICATIONS: Reviewed. ASSESSMENT: A 78-year-old woman with: 1. Escherichia coli urinary tract infection. 2. Acute kidney injury. 3. Diabetes mellitus type 2, hemoglobin A1c 5.6, LDL 77. 4. Diabetic neuropathy. 5. Acute diarrhea. 6. Hypothyroidism. 7. Metabolic acidosis. 8. Hypokalemia. 9. Acute metabolic encephalopathy. PLAN 1. Stress testing was negative. 2. Control blood pressure. 3. Check labs. 4. Skilled facility placement. Job#: [id number]
[2018-08-09] MEDS: GABAPENTIN 300 MG CAP PO SCH (21:00)
[2018-08-09] MEDS: TRAZODONE HCL 50 MG TAB PO SCH (21:00)
[2018-08-09] MEDS: PAROXETINE HCL 20 MG TAB PO SCH (21:00)
[2018-08-09] MEDS: DONEPEZIL HCL 5 MG TAB PO SCH (22:06)
[2018-08-10] VITALS: BP 118/61
[2018-08-10 04:00] VITALS: BP 123/60
[2018-08-10 05:04] VITALS: BP 175/76
[2018-08-10] MEDS: SODIUM CHLORIDE 0.9% 1000ML 1,000 ML IV SCH ×2 (05:23→18:11)
[2018-08-10] MEDS: LEVOTHYROXINE SODIUM 100 MCG TAB PO SCH (06:15)
[2018-08-10] MEDS: LEVOTHYROXINE SODIUM 75 MCG TAB PO SCH (06:15)
[2018-08-10] MEDS: NIFEDIPINE CR 30 MG TAB PO SCH ×2 (06:16→16:22)
[2018-08-10] MEDS: METRONIDAZOLE 500MG/NS 100ML 100 ML IV SCH ×2 (06:16→15:50)
[2018-08-10 06:17] LABS: BASOPHILS # (AUTO) 0.1 (0.0-0.1); BASOPHILS % 0.9 % (0.0-1.0); EOSINOPHILS # (AUTO) 0.2 (0.0-0.4); EOSINOPHILS % 2.2 % (0.0-6.0); HEMATOCRIT 32.7 % (34.2-44.1); HEMOGLOBIN 11.1 g/dL (12.0-16.0); LYMPHOCYTES % 29.8 % (18.0-39.1); MEAN CORPUSCULAR HEMOGLOBIN 30.5 pg (28-32); MEAN CORPUSCULAR HGB CONC 33.9 g/dL (31-35); MEAN CORPUSCULAR VOLUME 89.8 fL (81-99); MONOCYTES # (AUTO) 0.6 (0.2-0.8); MONOCYTES % 8.5 % (4.4-11.3); PLATELET COUNT 138 x10e3/uL (140-360); RED BLOOD COUNT 3.64 x10e6/uL (3.6-5.1); RED CELL DISTRIBUTION WIDTH 13.8 % (11.7-14.4)
[2018-08-10 06:40] LABS: ANION GAP 13.2 mmol/L (8-16); CALCIUM 9.1 mg/dL (8.4-10.2); CREATININE, SERUM 0.99 mg/dL (0.57-1.11); POTASSIUM 3.2 mmol/L (3.5-5.1)
[2018-08-10 07:52] VITALS: BP 106/59
[2018-08-10] MEDS ORDERED: POTASSIUM CHLORIDE 20 MEQ TAB CR PO STA (07:59)
[2018-08-10] MEDS: PANTOPRAZOLE SOD 40 MG TABEC PO SCH (08:59)
[2018-08-10] MEDS: ANASTROZOLE 1 MG TAB PO SCH (08:59)
[2018-08-10] MEDS: LEVOFLOXACIN 500MG/D5W 100ML 100 ML IV SCH (08:59)
[2018-08-10] MEDS: CYCLOBENZAPRINE HCL 10 MG TAB PO SCH ×2 (09:00→15:50)
[2018-08-10] MEDS ORDERED: NEBIVOLOL 10 MG TAB PO SCH (09:00)
[2018-08-10] MEDS: CLOPIDOGREL BISULFATE 75 MG TAB PO SCH (09:00)
[2018-08-10 11:28] VITALS: BP 116/55
[2018-08-10 15:41] VITALS: BP 122/60
--- NOTE | 2018-08-10 19:01 | Progress Note ---
DATE: August 10, 2018 SUBJECTIVE: No major events overnight. He is pleasantly confused. OBJECTIVE VITAL SIGNS: Afebrile, pulse 65, respiratory rate 18, blood pressure 169/75, satting 99% on room air. CARDIOVASCULAR: Regular rate and rhythm. No murmurs, rubs or gallops. LUNGS: Clear to auscultation bilaterally. No respiratory distress. ABDOMEN: Soft, nontender. No masses. NEURO AND PSYCH: Alert and oriented to person and place, not time. Normal affect. CARDIOVASCULAR MEDICATIONS: Reviewed. LABORATORY DATA: Reviewed. TELEMETRY DATA: Shows normal sinus rhythm. ASSESSMENT AND PLAN 1. Suspected syncope. 2. Urinary tract infection. 3. Acute kidney injury. 4. Diabetes mellitus. 5. Hypertension. 6. Hyperlipidemia. 7. Hypothyroidism. 8. Dementia. PLAN: Carotid duplex without evidence of any significant stenosis. No evidence of arrhythmia on telemetry. Echo with normal LV function. No significant valvular disease. No obvious cardiovascular cause of her syncope or falls. Antibiotics per primary service. Continue current cardiac medications. Thank you for this consult will continue to follow. Job#: [id number]
--- OUTSIDE RECORDS SUMMARY | 2018-08-16 10:46 | XMS REPORT | Clinical Summary ---
Author Author [facility] Organization [facility] Address Unknown Phone Unavailable Care Team Providers Care Credit Consultant Name Role Phone Ambika Lacey MD PCP Allergies Active Allergy Reactions Severity Noted Date Comments Ramipril Itching High 02/07/2016 Pt doesn't remember Cephalosporins Itching 02/04/2017 Occurred with taking Vantin Codeine Hives, Itching 02/07/2016 Hydrocodone Itching High 02/07/2016 Penicillin Itching 12/29/2017 Penicillins Hives, Itching 02/07/2016 Sucralfate 11/16/2011 Current Medications Prescription Sig. Disp. Refills Start End Date Status Date gabapentin (NEURONTIN) Take 300 mg by mouth Active 300 mg capsule once. methocarbamol (ROBAXIN) Take 750 mg by mouth 3 Active 750 MG tablet (three) times a day. folic acid (FOLVITE) 1 MG Take 1 mg by mouth daily. Active tablet LORAZepam (ATIVAN) 0.5 MG Take 0.5 mg by mouth Active tablet every 6 (six) hours as needed for anxiety. QUEtiapine (SEROquel) 25 Take 25 mg by mouth 2 Active MG tablet (two) times a day. memantine (NAMENDA) 10 MG Take 10 mg by mouth 2 Active tablet (two) times a day. pantoprazole (PROTONIX) Take 40 mg by mouth Active 40 MG EC tablet daily. sitaGLIPtin-metformin Take 1 tablet by mouth Active (JANUMET) 50-1,000 mg per once. tablet levothyroxine (SYNTHROID, Take 150 mcg by mouth Active LEVOXYL) 150 mcg tablet every morning. buPROPion XL (WELLBUTRIN Take 300 mg by mouth Active XL) 300 MG 24 hr tablet daily. mirabegron (MYRBETIQ) 50 Take 50 mg by mouth Active mg tablet extended daily. release 24 hr pravastatin (PRAVACHOL) Take 40 mg by mouth Active 40 MG tablet daily. PARoxetine (PAXIL) 20 MG Take 20 mg by mouth every Active tablet morning. amLODIPine (NORVASC) 5 mg Take 5 mg by mouth daily. Active tablet donepezil (ARICEPT) 10 MG 10 mg 2 (two) times a Active tablet day. blood sugar diagnostic Active strips (ACCU-CHEK SMARTVIEW TEST STRIP) strip test strips anastrozole (ARIMIDEX) 1 Take 1 mg by mouth daily. Active mg chemo tablet potassium gluconate 595 Take by mouth. Active mg (99 mg) tablet ranitidine (ZANTAC) 300 Take 300 mg by mouth Active MG tablet nightly. clopidogrel (PLAVIX) 75 Take 75 mg by mouth Active mg tablet daily. amLODIPine (NORVASC) 5 MG Take 1 tablet by mouth. 12/25/19 02/19/20 Discontin tablet 16 18 ued pantoprazole (PROTONIX) Take 1 tablet by mouth. 02/18/20 02/19/20 Discontin 40 MG EC tablet 16 18 ued clopidogrel (PLAVIX) 75 TAKE 1 TABLET BY MOUTH 06/01/20 02/19/20 Discontin mg tablet EVERY DAY 16 18 ued pravastatin (PRAVACHOL) Take 1 tablet by mouth. 12/25/19 02/19/20 Discontin 40 MG tablet 16 18 ued busPIRone (BUSPAR) 10 MG TAKE 1 TABLET (10 MG 07/30/20 02/19/20 Discontin tablet TOTAL) BY MOUTH TWICE 16 18 ued DAILY. memantine (NAMENDA) 10 MG Take 5 mg by mouth. 04/08/20 02/19/20 Discontin tablet 16 18 ued PARoxetine (PAXIL) 20 MG Take 1 tablet by mouth. 05/26/20 02/19/20 Discontin tablet 16 18 ued omeprazole (PriLOSEC) 40 TAKE 1 CAPSULE BY MOUTH 3 07/24/20 02/19/20 Discontin MG capsule ONCE A DAY 30 MINUTES 16 18 ued BEFORE BREAKFAST levothyroxine (SYNTHROID) Take 200 mcg by mouth. 02/19/20 Discontin 200 MCG tablet 18 ued ranitidine (ZANTAC) 300 Take 1 tablet by mouth. 01/23/20 02/19/20 Discontin MG tablet 16 18 ued sitagliptin-metformin Take 1 tablet by mouth. 02/26/20 02/19/20 Discontin (JANUMET XR) 50-1,000 mg 16 18 ued tablet, ER multiphase 24 hr magnesium oxide 500 mg Take 500 mg by mouth. 03/26/20 01/01/20 Discontin tablet 16 18 ued mirabegron (MYRBETRIQ) 50 Take 1 tablet by mouth. 11/11/19 02/19/20 Discontin mg tablet extended 16 18 ued release 24 hr anastrozole (ARIMIDEX) 1 Take 1 mg by mouth once 4 08/05/20 02/19/20 Discontin mg chemo tablet daily. 16 18 ued CETIRIZINE HCL (ZYRTEC Take by mouth. 01/01/20 Discontin ORAL) 18 ued sitaGLIPtin (JANUVIA) 50 Take 1 tablet (50 mg 30 tablet 0 01/02/20 02/01/20 MG tablet total) by mouth daily 18 18 with breakfast for 30 days. metFORMIN XR Take 2 tablets (1,000 mg 60 tablet 0 01/02/20 02/01/20 (GLUCOPHAGE-XR) 500 mg 24 total) by mouth daily 18 18 hr tablet with breakfast for 30 days. amitriptyline (ELAVIL) 25 Take 25 mg by mouth. 02/19/20 Discontin MG tablet 18 ued buPROPion XL (WELLBUTRIN TAKE 1 TABLET BY MOUTH IN 05/11/20 02/19/20 Discontin XL) 300 MG 24 hr tablet THE MORNING 17 18 ued cholecalciferol, vitamin Take 400 Units by mouth. 02/19/20 Discontin D3, (VITAMIN D3) 2,000 18 ued unit tablet cyanocobalamin (VITAMIN TAKE 1 TABLET BY MOUTH 05/31/20 02/19/20 Discontin B-12) 1000 MCG tablet EVERY DAY 17 18 ued donepezil (ARICEPT) 10 MG 11/29/19 02/19/20 Discontin tablet 18 18 ued LORAZepam (ATIVAN) 0.5 MG 05/25/20 02/19/20 Discontin tablet 12 18 ued Active Problems Problem Noted Date Orthostatic hypotension 02/18/2018 Advanced dementia 02/18/2018 Mood disorder (HCC) 02/18/2018 Fall 02/18/2018 Acute kidney injury (HCC) 12/30/2017 Encounters Date Type Specialty Care Team Description 06/02/2018 Patient Quality Mary Hahn, GORGE Outreach 05/24/2018 Emergency Emergency Medicine Hiram Patricia Contusion of face, MD Shay initial encounter (Primary Dx); Fall from standing, initial encounter 05/02/2018 Patient Quality Steph Huggins, JEANE Outreach 04/27/2018 Patient Quality Mary Hahn, GORGE Outreach 04/13/2018 Emergency Emergency Medicine Benedict Hartman, [employer]BER[employer] Acute pain of right knee Elian Valenzuela (Primary Dx); MD Joel Groin strain, right, initial encounter 03/09/2018 Telephone Neurology Devon Arguelles MA 02/18/2018 Office Visit Neurology Meghna Marcus MD Advanced dementia (Primary Dx); Mood disorder; Orthostatic hypotension; Fall, sequela 02/18/2018 Orders Only Neurology Meghna Marcus MD 12/31/2017 Patient Quality Lizy Cazares, JEANE Outreach 12/30/2017 Procedure Pass General Surgery 12/29/2017 [facility] General Surgery Mohan Reyes MD Acute kidney injury - Encounter Main Jones MD (Primary Dx); 12/31/2017 Weakness of both lower extremities; Elevated serum lactate dehydrogenase after 08/03/2017 Immunizations Name Dates Previously Given Next Due FLUZONE HIGH-DOSE PF 07/23/2017 Pneumococcal Conjugate 10/18/2017 13-[facility]ent Social History Tobacco Use Types Packs/Day Years Used Date Never Smoker Smokeless Tobacco: Never Used Alcohol Use Drinks/Week oz/Week Comments No Sex Assigned at Date Recorded Not on file Last Filed Vital Signs Vital Sign Reading Time Taken Blood Pressure 143/66 05/24/2018 9:26 AM CDT Pulse 72 05/24/2018 9:26 AM CDT Temperature 36.6 C (97.8 F) 05/24/2018 9:26 AM CDT Respiratory Rate 17 05/24/2018 9:26 AM CDT Oxygen Saturation 98% 05/24/2018 9:26 AM CDT Inhaled Oxygen - - Concentration Weight 72.6 kg (160 lb) 05/24/2018 7:47 AM CDT Height 170.2 cm (5' 7") 05/24/2018 7:47 AM CDT Body Mass Index 25.06 05/24/2018 7:47 AM CDT Plan of Treatment Health Maintenance Due Date Last Done Comments SHINGRIX VACCINE (#1) 1992 ZOSTER VACCINE 2002 PNEUMOCOCCAL 2007 POLYSACCHARIDE VACCINE AGE 65 AND OVER INFLUENZA VACCINE 06/01/2018 07/23/2017 PNEUMOCOCCAL-13 Completed 10/18/2017 Procedures Procedure Name Priority Date/Time Associated Diagnosis Comments CT MAXILLOFACIAL WO STAT 05/24/2018 Results for this CONTRAST 8:32 AM CDT procedure are in the results section. CT HEAD WO CONTRAST STAT 05/24/2018 Results for this 8:32 AM CDT procedure are in the results section. XR KNEE 4+ VW RIGHT STAT 04/13/2018 Results for this 6:21 PM CDT procedure are in the results section. VITAMIN B12 LEVEL Routine 02/18/2018 Results for this 12:30 PM CDT procedure are in the results section. THYROID STIMULATING Routine 02/18/2018 Results for this HORMONE 12:30 PM CDT procedure are in the results section. T4, FREE Routine 02/18/2018 Results for this 12:30 PM CDT procedure are in the results section. T3 Routine 02/18/2018 Results for this 12:30 PM CDT procedure are in the results section. THYROID PEROXIDASE Routine 02/18/2018 Results for this ANTIBODY 12:30 PM CDT procedure are in the results section. POC GLUCOSE Routine 12/31/2017 Results for this 11:54 AM ATV MECHANIC procedure are in the results section. POC GLUCOSE Routine 12/31/2017 Results for this 5:35 AM ATV MECHANIC procedure are in the results section. ZZESTIMATED GFR Routine 12/31/2017 Results for this 4:35 AM ATV MECHANIC procedure are in the results section. BASIC METABOLIC PANEL Routine 12/31/2017 Results for this 4:35 AM ATV MECHANIC procedure are in the results section. POC GLUCOSE Routine 12/30/2017 Results for this 9:01 PM ATV MECHANIC procedure are in the results section. POC GLUCOSE Routine 12/30/2017 Results for this 5:17 PM ATV MECHANIC procedure are in the results section. US CAROTID DUPLEX Routine 12/30/2017 Results for this BILATERAL 10:30 AM ATV MECHANIC procedure are in the results section. MRI BRAIN WO CONTRAST STAT 12/30/2017 Results for this 10:02 AM ATV MECHANIC procedure are in the results section. THYROID STIMULATING Routine 12/30/2017 Results for this HORMONE 4:09 AM ATV MECHANIC procedure are in the results section. SEDIMENTATION RATE Routine 12/30/2017 Results for this 4:09 AM ATV MECHANIC procedure are in the results section. LIPID PANEL Routine 12/30/2017 Results for this 4:09 AM ATV MECHANIC procedure are in the results section. HEMOGLOBIN A1C Routine 12/30/2017 Results for this 4:09 AM ATV MECHANIC procedure are in the results section. TROPONIN Timed 12/30/2017 Results for this 4:09 AM ATV MECHANIC procedure are in the results section. ZZESTIMATED GFR Routine 12/30/2017 Results for this 4:08 AM ATV MECHANIC procedure are in the results section. BASIC METABOLIC PANEL Routine 12/30/2017 Results for this 4:08 AM ATV MECHANIC procedure are in the results section. LACTIC ACID LEVEL, SEPSIS Timed 12/30/2017 Results for this - NOW AND REPEAT 2X EVERY 4:08 AM ATV MECHANIC procedure are in the 3 HOURS results section. URINALYSIS SCREEN AND STAT 12/30/2017 Results for this MICROSCOPY, WITH REFLEX 2:35 AM ATV MECHANIC procedure are in the TO CULTURE results section. GRAM STAIN STAT 12/30/2017 Results for this 2:35 AM ATV MECHANIC procedure are in the results section. URINE CULTURE STAT 12/30/2017 Results for this 2:35 AM ATV MECHANIC procedure are in the results section. CT HEAD WO CONTRAST STAT 12/30/2017 Results for this 12:46 AM ATV MECHANIC procedure are in the results section. XR CHEST 1 VW PORTABLE STAT 12/30/2017 Results for this 12:30 AM ATV MECHANIC procedure are in the results section. BLOOD CULTURE, AEROBIC & Routine 12/30/2017 Results for this ANAEROBIC 12:22 AM [facility]V MECHANIC procedure are in the results section. BLOOD CULTURE, AEROBIC & Routine 12/30/2017 Results for this ANAEROBIC 12:15 AM ATV MECHANIC procedure are in the results section. ECG 12-LEAD STAT 12/29/2017 Results for this 11:33 PM ATV MECHANIC procedure are in the results section. ZZESTIMATED GFR STAT 12/29/2017 Results for this 11:26 PM ATV MECHANIC procedure are in the results section. LIPASE LEVEL STAT 12/29/2017 Results for this 11:26 PM ATV MECHANIC procedure are in the results section. LACTIC ACID LEVEL, SEPSIS STAT 12/29/2017 Results for this - NOW AND REPEAT 2X EVERY 11:26 PM ATV MECHANIC procedure are in the 3 HOURS results section. PARTIAL THROMBOPLASTIN STAT 12/29/2017 Results for this TIME (PTT) 11:26 PM ATV MECHANIC procedure are in the results section. PROTHROMBIN TIME WITH INR STAT 12/29/2017 Results for this 11:26 PM ATV MECHANIC procedure are in the results section. TROPONIN STAT 12/29/2017 Results for this 11:26 PM ATV MECHANIC procedure are in the results section. COMPREHENSIVE METABOLIC STAT 12/29/2017 Results for this PANEL 11:26 PM ATV MECHANIC procedure are in the results section. HC COMPLETE BLD COUNT STAT 12/29/2017 Results for this W/AUTO DIFF 11:26 PM ATV MECHANIC procedure are in the results section. INFLUENZA ANTIGEN Routine 12/29/2017 Results for this 11:26 PM ATV MECHANIC procedure are in the results section. IN CRITICAL CARE, E/M Routine 12/29/2017 Results for this 30-74 MINUTES 10:45 PM ATV MECHANIC procedure are in the results section. POC GLUCOSE Routine 12/29/2017 Results for this 10:23 PM ATV MECHANIC procedure are in the results section. after 08/03/2017 Results * CT Maxillofacial Wo Contrast (05/24/2018 8:32 AM) Narrative Performed At EXAMINATION: CT MAXILLOFACIAL WO CONTRAST [facility] CLINICAL HISTORY: fall from standingleft periorbital ecchymosison plavix COMPARISON:None TECHNIQUE: Axial noncontrastenhanced images through the maxillofacial bones were obtained with bone and soft tissue algorithms. Coronal and sagittal reconstructions were also performed.CT imaging was performed with iterative reconstruction technique and/or automated exposure control to reduce radiation dose. FINDINGS: Mild asymmetric subcutaneous fat stranding along the superficial aspect of the left temporal region and superficial to the left parotid, consistent with edema related to left temporal scalp contusion. No evidence of fracture. No evidence of globe injury. Status post bilateral lens extractions. Limited evaluation of the visualized intracranial contents is unremarkable. Small mucous retention cysts in the inferior left maxillary sinus and partially aerated secretions in a posterior ethmoid air cell. Visualized mastoid air cells are clear. Visualized neck soft tissues are unremarkable. Degenerative changes of the visualized cervical spine with partially calcified posterior disc bulge at C3-C4. Arteriosclerosis of the visualized bilateral carotid bifurcations. Mild degenerative changes of the temporomandibular joints. IMPRESSION: Edema related to left temporal scalp contusion extending inferiorly superficial to the left parotid gland. No evidence of fracture. [id number] Procedure Note Hm Interface, Radiology Results Incoming - 05/24/2018 8:43 AM CDT EXAMINATION: CT MAXILLOFACIAL WO CONTRAST CLINICAL HISTORY: fall from standing left periorbital ecchymosis on plavix COMPARISON: None TECHNIQUE: Axial noncontrast enhanced images through the maxillofacial bones were obtained with bone and soft tissue algorithms. Coronal and sagittal reconstructions were also performed. CT imaging was performed with iterative reconstruction technique and/or automated exposure control to reduce radiation dose. FINDINGS: Mild asymmetric subcutaneous fat stranding along the superficial aspect of the left temporal region and superficial to the left parotid, consistent with edema related to left temporal scalp contusion. No evidence of fracture. No evidence of globe injury. Status post bilateral lens extractions. Limited evaluation of the visualized intracranial contents is unremarkable. Small mucous retention cysts in the inferior left maxillary sinus and partially aerated secretions in a posterior ethmoid air cell. Visualized mastoid air cells are clear. Visualized neck soft tissues are unremarkable. Degenerative changes of the visualized cervical spine with partially calcified posterior disc bulge at C3- C4. Arteriosclerosis of the visualized bilateral carotid bifurcations. Mild degenerative changes of the temporomandibular joints. IMPRESSION: Edema related to left temporal scalp contusion extending inferiorly superficial to the left parotid gland. No evidence of fracture. [id number] Performing Organization Address City/State/Zipcode Phone Number [facility] [address] [place] [address] * CT Head Wo Contrast (05/24/2018 8:32 AM) Only the most recent of 2 results within the time period is included. Narrative Performed At EXAMINATION:CT HEAD WO CONTRAST RADIANT CLINICAL HISTORY:Head [id number] clinical riskinitial exam, fall from standingleft temporal contusionon plavix COMPARISON:MRI brain 12/30/2017; CT head 12/30/2017. TECHNIQUE: Noncontrast head CT performed using radiation dose reduction techniques.Technical factors are evaluated and adjusted to ensure appropriate moderation of exposure.Automated dose management technology is applied to adjust radiation exposure while achieving a diagnostic quality image. FINDINGS: Mild left temporal scalp swelling consistent with contusion with hematoma measuring 2.1 cm in greatest dimension. No evidence of acute intracranial hemorrhage, mass, mass effect, midline shift, or acute infarct. Few areas of subcortical and periventricular white matter hypoattenuation likely reflecting mild chronic microvascular ischemic changes, similar in extent to 12/30/2017. Ventricles and sulci are normal in appearance for age.Mild global cerebral and cerebellar volume loss. Arteriosclerosis of the cavernous and paraclinoid internal carotid arteries and V4 segments of the vertebral arteries. Basal cisterns are clear. Calvarium is intact. Status post bilateral lens extractions. Minimal sinus inflammatory changes with small mucous retention cysts in the inferior left maxillary sinus. Mastoid air cells are clear. IMPRESSION: 1. No CT evidence of acute intracranial abnormality. 2. Asymmetric left temporal scalp swelling consistent with contusion with 2.1 cm hematoma formation. No evidence of underlying fracture. [id number] Procedure Note Interface, Radiology Results Incoming - 05/24/2018 8:40 AM CDT EXAMINATION: CT HEAD WO CONTRAST CLINICAL HISTORY: Head trauma minor GCS 13 low clinical risk initial exam, fall from standing left temporal contusion on plavix COMPARISON: MRI brain 12/30/2017; CT head 12/30/2017. TECHNIQUE: Noncontrast head CT performed using radiation dose reduction techniques. Technical factors are evaluated and adjusted to ensure appropriate moderation of exposure. Automated dose management technology is applied to adjust radiation exposure while achieving a diagnostic quality image. FINDINGS: Mild left temporal scalp swelling consistent with contusion with hematoma measuring 2.1 cm in greatest dimension. No evidence of acute intracranial hemorrhage, mass, mass effect, midline shift, or acute infarct. Few areas of subcortical and periventricular white matter hypoattenuation likely reflecting mild chronic microvascular ischemic changes, similar in extent to 12/30/2017. Ventricles and sulci are normal in appearance for age. Mild global cerebral and cerebellar volume loss. Arteriosclerosis of the cavernous and paraclinoid internal carotid arteries and V4 segments of the vertebral arteries. Basal cisterns are clear. Calvarium is intact. Status post bilateral lens extractions. Minimal sinus inflammatory changes with small mucous retention cysts in the inferior left maxillary sinus. Mastoid air cells are clear. IMPRESSION: 1. No CT evidence of acute intracranial abnormality. 2. Asymmetric left temporal scalp swelling consistent with contusion with 2.1 cm hematoma formation. No evidence of underlying fracture. [id number] Performing Organization Address City/State/Zipcode Phone Number [facility] [address] [place] [address] * XR Knee 4+ Vw Right (04/13/2018 6:21 PM) Narrative Performed At EXAMINATION:XR KNEE 4VW RIGHT RADIANT CLINICAL HISTORY:JOINT PAINKNEE COMPARISON:None. IMPRESSION: 4 views of the right knee. There is a hemiarthroplasty in anatomic alignment. There are no hardware fractures or signs of loosening. Vertebral narrowing of the lateral and patellofemoral compartments with marginal osteophytes from osteoarthrosis with mild chondrocalcinosis. No acute fracture or dislocation. No joint effusion. Atherosclerotic vascular calcifications present. [id number] Procedure Note Hm Interface, Radiology Results Incoming - 04/13/2018 6:32 PM CDT EXAMINATION: XR KNEE 4 VW RIGHT CLINICAL HISTORY: JOINT PAIN KNEE COMPARISON: None. IMPRESSION: 4 views of the right knee. There is a hemiarthroplasty in anatomic alignment. There are no hardware fractures or signs of loosening. Vertebral narrowing of the lateral and patellofemoral compartments with marginal osteophytes from osteoarthrosis with mild chondrocalcinosis. No acute fracture or dislocation. No joint effusion. Atherosclerotic vascular calcifications present. [id number] Performing Organization Address [facility] Phone Number [facility] [address] [place] [address] * Thyroperoxidase antibody (02/18/2018 12:30 PM) Thyroperoxidase Ab 9 (H) <9 IU/mL [facility] Other Results Text Performing Organization Information: Site ID: [id number] Name: [facility] Address: [address] [place] [id number] Director: Dr. Patricio Hampton Performing Organization Address [facility] Phone Number [facility] [[email or web address]] [employer] [address] [address] II * T3 (02/18/2018 12:30 PM) T3 73 (L) 76 - 181 ng/dL [employer] [place] Other Results Text Performing Organization Information: Site ID: [id number] Name: [facility] Address: [address] [place] [id number] Director: Neetu Lai Performing Organization Address [facility] Phone Number [facility] [address] [address] * Thyroid stimulating hormone (02/18/2018 12:30 PM) Only the most recent of 2 results within the time period is included. TSH 5.86 (H) 0.40 - 4.50 mIU/L [employer] [place] Other Results Text Performing Organization Information: Site ID: [id number] Name: [facility] Address: [address] [place] [address] Director: Neetu Lai Performing Organization Address [facility] Phone [place] [address] * T4, free (02/18/2018 12:30 PM) T4, free 2.0 (H) 0.8 - 1.8 ng/dL [employer] [place] Other Results Text Performing Organization Information: Site ID: [id number] Name: [facility] Address: [address] [place], [place] [id number] Director: Neetu Lai Performing Organization Address [facility] Hospital[facility] [place] [address] * Vitamin B12 level (02/18/2018 12:30 PM) Vitamin B12 779 200 - 1,100 pg/mL [employer] [place] Other Results Text Performing Organization Information: Site ID: [id number] Name: [facility] Address: [address] [place] [address] Director: Neetu Lai Performing Organization Address [facility] [place] [address] * POC glucose (12/31/2017 11:54 AM) Only the most recent of 5 results within the time period is included. POC glucose 110 (H) 65 - 99 mg/dL [facility] DEPARTMENT OF Comment: PATHOLOGY AND Meter ID: [id number] GENOMIC MEDICINE Janitorial Supervisor: Jet Staley Performing Organization Address City/[facility] Phone Number [facility] DEPARTMENT [address] [place] [address] PATHOLOGY AND GENOMIC MEDICINE * Estimated GFR (12/31/2017 4:35 AM) Only the most recent of 3 results within the time period is included. GFR Non Af Amer 48 (A) mL/min/1.73 m2 [facility] DEPARTMENT PATHOLOGY [facility] GFR Af Amer 59 (A) mL/min/1.73 m2 [facility] DEPARTMENT OF Comment: PATHOLOGY AND Chronic kidney disease: <60 [facility] mL/min/1.73m2 Kidney failure: <15 mL/min/1.73m2 The estimated GFR is calculated from the IDMS-traceable Modification of Diet in Renal Disease Equation. The accuracy of the calculation is poor when the creatinine is normal. Calculated values >90 mL/min/1.73m2 are not reported. This equation has not been validated in children (<18 years), women, the elderly (>70 years), or ethnic groups other than Caucasians and Americans. Specimen Plasma specimen Performing Organization Address [facility] Phone Number [address] [place] [id number] [facility] * Basic metabolic panel (12/31/2017 4:35 AM) Only the most recent of 2 results within the time period is included. Sodium 143 135 - 148 mEq/L [facility] PATHOLOGY [facility] Potassium 3.2 (L) 3.5 - 5.0 mEq/L [facility] PATHOLOGY [facility] Chloride 102 98 - 112 mEq/L [facility] PATHOLOGY [facility] [employer] CO2 26 24 - 31 mEq/L [facility] PATHOLOGY [facility] [employer] Anion gap 15 7 - 15 mEq/L [facility] DEPARTMENT OF Comment: PATHOLOGY AND Starting from January [facility] , anion gap calculation no longer incorporates potassium. Please note the change. BUN 18 8 - 23 mg/dL [facility] DEPARTMENT PATHOLOGY AND [facility] Creatinine 1.1 (H) 0.5 - 0.9 mg/dL [facility] PATHOLOGY AND [facility] Glucose 142 (H) 65 - 99 mg/dL [facility] PATHOLOGY [facility] [employer] [facility] Calcium 9.7 8.8 - 10.2 mg/dL [facility] [employer] [facility] Specimen Plasma specimen Performing Organization Address City/[facility] Phone Number [address] [place] [address] [facility] * PV carotid duplex (12/30/2017 10:30 AM) L CCA Prox 12.8 cm/s [facility] L CCA Prox 71 cm/s [facility] L ECA Prox 6.5 cm/s [facility] L ECA Prox 68 cm/s [facility] R ECA Prox 11.36 cm/s [facility] L ICA Prox 17.5 cm/s [facility] L ICA Prox 74.8 cm/s [facility] R ICA Prox 16.4 cm/s [facility] R ICA Prox 84.5 cm/s [facility] L ICA/CCA Ratio 1.1 [facility] R ICA/CCA Ratio 1.3 [facility] L CCA Max 71.00 cm/s [facility] R CCA Max 68.90 cm/s [facility] L ICA Max 74.80 cm/s [facility] R ICA Max 87.80 cm/s [facility] R CCA Prox 9.5 cm/s [facility] R CCA Prox 56.6 cm/s [facility] R ICA Dist 15.3 cm/s [facility] R ICA Mid 16.4 cm/s [facility] L ICA Dist 10.3 cm/s [facility] L ICA DIST 47.8 cm/s [facility] R Car Bulb 87.80 cm/s [facility] R CCA Dist 14.1 cm/s [facility] R CCA Dist 68.9 cm/s [facility] R Vert Art 14.10 cm/s [facility] L Car Bulb 16.40 cm/s [facility] L Car Bulb 66.00 cm/s [facility] R Car Bulb 7.60 cm/s [facility] L CCA Dist 13.9 cm/s [facility] L CCA Dist 52.3 cm/s [facility] R ECA Prox 145.70 cm/s [facility] L ICA Mid 19.7 cm/s [facility] L ICA Mid 74.8 cm/s [facility] R ICA Dist 57 cm/s [facility] R ICA Mid 66.9 cm/s [facility] L Vert Art 14.20 cm/s [facility] L Vert Art 69.3 cm/s [facility] R Vert Art 68.50 cm/s [facility] Narrative Performed At [facility] There is less than 50% stenosis of the internal carotid artery bilaterally. Performing Organization Address City/State/Zipcode Phone Number [facility] [address] [place] [address] * MRI Brain Wo Contrast (12/30/2017 10:02 AM) Narrative Performed At EXAMINATION: [facility]: weakness COMPARISON:Brain CT dated December 30, 2017 TECHNIQUE: Multiplanar and multisequence MRI imaging of the brain was obtained without contrast. FINDINGS: On diffusion-weighted imaging, there is no evidence of acute ischemia and/restricted water diffusion in the brain parenchyma. No evidence of acute intracranial hemorrhage, mass lesion or focal extra-axial collection. On gradient-echo imaging, there are no abnormal intraparenchymal foci of magnetic susceptibility artifact to suggest deposition of blood products and/or abnormal mineralization. The ventricles and extra-axial spaces are mildly prominent bilaterally, reflecting underlying cerebral parenchymal volume loss. Confluent and discrete foci of T2 FLAIR signal change involve the periventricular, deep and subcortical white matter at the level of the centrum semiovale and bacon radiata. These are nonspecific, but most commonly related to chronic microvascular ischemic change in this age group. These are considered mild in terms of their extent. No sellar, suprasellar or pineal region mass is identified. Brainstem, cerebellum and visualized portions of the upper cervical cord appear unremarkable on this unenhanced MRI. Major intracranial flow voids at the skull base are identified. Bilateral lens extractions. Orbits are otherwise unremarkable. Retention cyst or polyp along the floor of the left maxillary sinus. IMPRESSION: 1. No acute intracranial abnormality identified. 2. Supratentorial white matter chronic microvascular ischemic change, considered mild in terms of its extent. [id number] Procedure Note Interface, Radiology Results Incoming - 12/30/2017 10:12 AM ATV MECHANIC EXAMINATION: MRI BRAIN WO CONTRAST CLINICAL HISTORY: weakness COMPARISON: Brain CT dated December 30, 2017 TECHNIQUE: Multiplanar and multisequence MRI imaging of the brain was obtained without contrast. FINDINGS: On diffusion-weighted imaging, there is no evidence of acute ischemia and/restricted water diffusion in the brain parenchyma. No evidence of acute intracranial hemorrhage, mass lesion or focal extra-axial collection. On gradient-echo imaging, there are no abnormal intraparenchymal foci of magnetic susceptibility artifact to suggest deposition of blood products and/or abnormal mineralization. The ventricles and extra-axial spaces are mildly prominent bilaterally, reflecting underlying cerebral parenchymal volume loss. Confluent and discrete foci of T2 FLAIR signal change involve the periventricular, deep and subcortical white matter at the level of the centrum semiovale and bacon radiata. These are nonspecific, but most commonly related to chronic microvascular ischemic change in this age group. These are considered mild in terms of their extent. No sellar, suprasellar or pineal region mass is identified. Brainstem, cerebellum and visualized portions of the upper cervical cord appear unremarkable on this unenhanced MRI. Major intracranial flow voids at the skull base are identified. Bilateral lens extractions. Orbits are otherwise unremarkable. Retention cyst or polyp along the floor of the left maxillary sinus. IMPRESSION: 1. No acute intracranial abnormality identified. 2. Supratentorial white matter chronic microvascular ischemic change, considered mild in terms of its extent. [facility]-[id number] Performing Organization Address [facility]/Zipcode Phone Number [facility] [address] [place] [address] * Troponin (12/30/2017 4:09 AM) Only the most recent of 2 results within the time period is included. Troponin <0.300 0.000 - 0.300 ng/mL [facility] DEPARTMENT OF Comment: PATHOLOGY AND 0.30 - 1.49 GENOMIC MEDICINE ng/mlMay indicate increased risk of acute coronary syndrome. >=1.5 ng/ml Consistent with acute myocardial infarction. The diagnostic value of a single normal or non-diagnostic result is questionable.Serial samples at 2-6 hour intervals are required to rule out acute myocardial injury. Specimen Plasma specimen Performing Organization Address [facility] Phone Number [address] [place] [id number] PATHOLOGY AND GENOMIC MEDICINE * Sedimentation rate (12/30/2017 4:09 AM) Sedimentation rate 6 0 - 20 mm/hr [facility] DEPARTMENT OF PATHOLOGY AND GENOMIC MEDICINE Specimen Blood Performing Organization Address [facility] Phone Number [address] [place] [address] PATHOLOGY AND GENOMIC MEDICINE * Hemoglobin A1c (12/30/2017 4:09 AM) Hemoglobin A1C 6.2 (H) 4.0 - 6.0 % [facility] DEPARTMENT OF Comment: PATHOLOGY AND GENOMIC MEDICINE Less than 6% - Goal of therapy for Type II Diabetes Less than 7%-Goal of therapy for Type I Diabetes Less than 8%-Accepta ble control for Type I or Type II Diabetes Greater than 8%-Unacceptabl e control; action indicated. ([id number]) Specimen Blood Performing Organization Address [facility]/Zipcode Phone Number [facility] [place] [id number] [place] [address] [place] [address] PATHOLOGY AND GENOMIC MEDICINE * Lipid panel (12/30/2017 4:09 AM) Cholesterol 177 <200 mg/dL [facility] DEPARTMENT OF PATHOLOGY AND GENOMIC MEDICINE Triglycerides 239 (H) <150 mg/dL [facility] DEPARTMENT OF PATHOLOGY AND GENOMIC MEDICINE HDL cholesterol 35 (L) >40 mg/dL [facility] DEPARTMENT OF PATHOLOGY AND GENOMIC MEDICINE LDL cholesterol 119 (H)Comment: Result <100 mg/dL [facility] DEPARTMENT obtained by direct LDL PATHOLOGY AND measurement GENOMIC MEDICINE Lipid panel SeeBelow [facility] DEPARTMENT OF interpretation Comment: PATHOLOGY AND Total Cholesterol GENOMIC MEDICINE (mg/dL) <200 Desirable 200-239Borderline -high >=240High Triglycerides (mg/dL) <150 Normal 150-199Borderline -high 200-499High >=500Very high HDL Cholesterol (mg/dL) <40Low (male) <40Low (female) LDL Cholesterol (mg/dL) <100 Optimal 100-129Near or above optimal 130-159Borderline -high 160-189High >=190Very high Risk Catergories that modify LDL goals. Risk Catergories LDL goal (mg/dL) CHD and CHD risk equivalent<100 (10-year risk >20%) Multiple (2+) risk factors <130 (10-year risk=<20%) 0-1 risk factors <160 (<10-year risk) Defining levels of lipids in metabolic syndrome Triglycerides >=150 mg/dL HDL Cholesterol Men <40 mg/dL Women <40 mg/dL Non-HDL cholesterol is a second target for therapy in persons with high triglycerides (>=200 mg/dL) Specimen Plasma specimen Performing Organization Address [facility]/Zipcode Phone Number [facility] [place] [id number] [email or web address] [address] PATHOLOGY AND GENOMIC MEDICINE * Lactic acid level, SEPSIS - Now and repeat 2x every 3 hours (12/30/2017 4:08 AM) Only the most recent of 2 results within the time period is included. Lactic acid 2.2 0.5 - 2.2 mmol/L [facility] DEPARTMENT OF PATHOLOGY AND GENOMIC MEDICINE Specimen Plasma specimen Performing Organization Address [facility] Phone Number [address] [place] [address] PATHOLOGY AND GENOMIC MEDICINE * Urinalysis screen and microscopy, with reflex to culture (12/30/2017 2:35 AM) Specimen site Clean catch [facility] DEPARTMENT OF PATHOLOGY AND GENOMIC MEDICINE Color, UA Straw [facility] DEPARTMENT OF PATHOLOGY AND GENOMIC MEDICINE Appearance, UA Clear [facility] DEPARTMENT OF PATHOLOGY AND GENOMIC MEDICINE Specific gravity, UA 1.008 1.001 - 1.035 [facility] DEPARTMENT OF PATHOLOGY AND GENOMIC MEDICINE pH, UA 5.0 5.0 - 8.5 [facility] DEPARTMENT OF PATHOLOGY AND GENOMIC MEDICINE Protein, UA Negative Negative [facility] DEPARTMENT OF PATHOLOGY AND GENOMIC MEDICINE Glucose, UA Negative Negative [facility] DEPARTMENT OF PATHOLOGY AND GENOMIC MEDICINE Ketones, UA Negative Negative [facility] DEPARTMENT OF PATHOLOGY AND GENOMIC MEDICINE Bilirubin, UA Negative Negative [facility] DEPARTMENT OF PATHOLOGY AND GENOMIC MEDICINE Blood, UA Negative Negative [facility] DEPARTMENT OF PATHOLOGY AND GENOMIC MEDICINE Nitrite, UA Negative Negative [facility] DEPARTMENT OF PATHOLOGY AND GENOMIC MEDICINE Urobilinogen, UA Negative <2.0 [facility] DEPARTMENT OF PATHOLOGY AND GENOMIC MEDICINE Leukocyte esterase, UA Moderate (A) Negative [facility] DEPARTMENT OF PATHOLOGY AND GENOMIC MEDICINE Round epithelial cells, Few 0 - 1 /HPF [facility] DEPARTMENT OF UA PATHOLOGY AND GENOMIC MEDICINE WBC, UA 21-40 (H) 0 - 4 /HPF [facility] DEPARTMENT OF PATHOLOGY AND GENOMIC MEDICINE RBC, UA 0-5 0 - 2 /HPF [facility] DEPARTMENT OF PATHOLOGY AND GENOMIC MEDICINE Bacteria, UA Trace None seen [facility] DEPARTMENT OF PATHOLOGY AND GENOMIC MEDICINE Yeast, UA None seen [facility] DEPARTMENT OF PATHOLOGY AND GENOMIC MEDICINE Yeast with pseudohyphae, None seen [facility] UA PATHOLOGY AND GENOMIC MEDICINE Hyaline casts, UA 3-5 /LPF [facility] DEPARTMENT OF PATHOLOGY AND GENOMIC MEDICINE Specimen Urine Performing Organization Address [facility] Phone Number [address] [place] [address] PATHOLOGY AND GENOMIC MEDICINE * Gram stain (12/30/2017 2:35 AM) Gram stain result Moderate WBC's [facility] DEPARTMENT OF Occasional Gram positive rods PATHOLOGY AND Comment: GENOMIC MEDICINE Specimen Information Specimen Source: Urine Specimen Site: Clean catch Specimen Urine Performing Organization Address City/State/Zipcode Phone Number [facility] DEPARTMENT OF [address] [place] [address] PATHOLOGY AND GENOMIC MEDICINE * Urine culture (12/30/2017 2:35 AM) Urine culture isolate Gram positive arya [facility] DEPARTMENT OF <10-1 cfu/ml PATHOLOGY AND (A) GENOMIC MEDICINE Comment: Specimen Information Specimen Source: Urine Specimen Site: Clean catch Specimen Urine Performing Organization Address City/[facility]/Zipcode Phone Number [facility] DEPARTMENT OF [address] [place] [address] PATHOLOGY AND GENOMIC MEDICINE * XR Chest 1 Vw Portable (12/30/2017 12:30 AM) Narrative Performed At EXAMINATION:XR CHEST 1 VW PORTABLE RADIANT CLINICAL HISTORY: elevated lactate COMPARISON:None IMPRESSION: No radiographic evidence for acute cardiopulmonary process. Cardiomediastinal silhouette is within normal limits of size. Calcifications are identified within the aortic arch. Eventration of the right hemidiaphragm. Nonspecific nodule overlying the right lower lung measuring 1.9 cm may represent the patient's right nipple; attention on follow-up imaging. No focal or confluent airspace consolidation is seen to suggest acute pneumonia. No sizable pleural effusion. No pneumothorax identified. Surgical clips within the left breast are noted. No acute osseous abnormalities are visualized. [facility]-[id number] Procedure Note Interface, Radiology Results Incoming - 12/30/2017 12:37 AM ATV MECHANIC EXAMINATION: XR CHEST 1 VW PORTABLE CLINICAL HISTORY: elevated lactate COMPARISON: None IMPRESSION: No radiographic evidence for acute cardiopulmonary process. Cardiomediastinal silhouette is within normal limits of size. Calcifications are identified within the aortic arch. Eventration of the right hemidiaphragm. Nonspecific nodule overlying the right lower lung measuring 1.9 cm may represent the patient's right nipple; attention on follow-up imaging. No focal or confluent airspace consolidation is seen to suggest acute pneumonia. No sizable pleural effusion. No pneumothorax identified. Surgical clips within the left breast are noted. No acute osseous abnormalities are visualized. [facility]-[id number] Performing Organization Address [facility]/Zipcode Phone Number [facility] [address] [place] [address] * Blood culture, aerobic & anaerobic (12/30/2017 12:22 AM) Only the most recent of 2 results within the time period is included. Blood culture isolate No growth after 5 days of [facility] DEPARTMENT OF incubation. PATHOLOGY AND Comment: GENOMIC MEDICINE Specimen Information Specimen Source: Blood Specimen Site: Antecubital, left Specimen Blood - Antecubital, left Performing Organization Address City/[facility] Phone Number [facility] DEPARTMENT OF [address] [place] [address] PATHOLOGY AND GENOMIC MEDICINE * ECG 12 lead (12/29/2017 11:33 PM) Ventricular rate 66 [facility] Atrial rate 66 [facility] IN interval 158 [facility] QRSD interval 84 [facility] QT interval 462 [facility] QTC interval 484 [facility] P axis 1 56 [facility] QRS axis 1 33 [facility] T wave axis 72 [facility] EKG impression Normal sinus [facility] MUSE rhythm-Nonspecific T wave abnormality-Prolonged QT-Abnormal ECG-No previous ECGs available- Procedure Note Mohan Reyes MD - 12/29/2017 10:45 PM ATV MECHANIC Formatting of this note may be different from the original. Emergency Department Provider Note Location: [facility] ED Patient ID: José Luis Giles is a 77 y.o. female. Chief Complaint Chief Complaint Patient presents with Extremity Weakness bilateral leg weakness started 10 am this morning denies any recent illness a/a/0x4 hx cva History of Present Illness 77 y.o. female with hx of TIA and alzheimer's presents to the ED with lower extremity weakness since this AM. Pt reports she had difficulty getting out of bed and when she was able to her legs felt weak while walking. She c/o unsteadiness while ambulating. Associated symptoms include: blurred vision and confusion this morning but has since resolved. Patient denies dizziness. No current neurologist as her previous one has moved but she is actively trying to find another one. HPI limited by alzheimer's. History limited by: Dementia Extremity Weakness Onset quality: Sudden Duration: 12 hours Timing: Constant Progression: Unchanged Chronicity: New Quality: Weakness Severity: Mild Location: Lower extremities Relieved by: None tried Worsened by: Nothing Ineffective treatments: None tried Associated symptoms: no abdominal pain, no chest pain, no cough, no diarrhea, no ear pain, no fatigue, no fever, no headaches, no myalgias, no nausea, no rash, no rhinorrhea, no shortness of breath, no sore throat, no vomiting and no wheezing History Allergies Allergies Allergen Reactions Altace [Ramipril] Pt doesn't remember Penicillin Itching Past Medical History Past Medical History: Diagnosis Date Arthritis Cancer Diabetes mellitus Disease of thyroid gland History of transfusion HLD (hyperlipidemia) Hypertension Seasonal allergies Stroke Past Surgical History Past Surgical History: Procedure Laterality Date BREAST LUMPECTOMY Past Family History No family history on file. Past Social History Social History Social History Main Topics Smoking status: Never Smoker Smokeless tobacco: Never Used Alcohol use No Drug use: No Sexual activity: Not on file Past Social History Narrative Social History Social History Narrative No narrative on file Medications Current Discharge Medication List CONTINUE these medications which have NOT CHANGED Details amLODIPine (NORVASC) 5 MG tablet Take 1 tablet by mouth. anastrozole (ARIMIDEX) 1 mg chemo tablet Take 1 mg by mouth once daily. Refills: 4 busPIRone (BUSPAR) 10 MG tablet TAKE 1 TABLET (10 MG TOTAL) BY MOUTH TWICE DAILY. CETIRIZINE HCL (ZYRTEC ORAL) Take by mouth. clopidogrel (PLAVIX) 75 mg tablet TAKE 1 TABLET BY MOUTH EVERY DAY levothyroxine (SYNTHROID) 200 MCG tablet Take 200 mcg by mouth. magnesium oxide 500 mg tablet Take 500 mg by mouth. memantine (NAMENDA) 10 MG tablet Take 5 mg by mouth. mirabegron (MYRBETRIQ) 50 mg tablet extended release 24 hr Take 1 tablet by mouth. omeprazole (PriLOSEC) 40 MG capsule TAKE 1 CAPSULE BY MOUTH ONCE A DAY 30 MINUTES BEFORE BREAKFAST Refills: 3 pantoprazole (PROTONIX) 40 MG EC tablet Take 1 tablet by mouth. PARoxetine (PAXIL) 20 MG tablet Take 1 tablet by mouth. pravastatin (PRAVACHOL) 40 MG tablet Take 1 tablet by mouth. ranitidine (ZANTAC) 300 MG tablet Take 1 tablet by mouth. sitagliptin-metformin (JANUMET XR) 50-1,000 mg tablet, ER multiphase 24 hr Take 1 tablet by mouth. Current Discharge Medication List Review of Systems Review of Systems Constitutional: Negative for chills, diaphoresis, fatigue and fever. HENT: Negative for ear pain, postnasal drip, rhinorrhea, sore throat, tinnitus, trouble swallowing and voice change. Eyes: Negative for photophobia, pain, redness and visual disturbance. Respiratory: Negative for cough, chest tightness, shortness of breath and wheezing. Cardiovascular: Negative for chest pain, palpitations and leg swelling. Gastrointestinal: Negative for abdominal pain, blood in stool, diarrhea, nausea and vomiting. Endocrine: Negative for polydipsia and polyuria. Genitourinary: Negative for dysuria, frequency, hematuria and urgency. Musculoskeletal: Positive for extremity weakness. Negative for back pain, myalgias, neck pain and neck stiffness. Skin: Negative for color change, pallor, rash and wound. Neurological: Negative for dizziness, seizures, facial asymmetry, speech difficulty, weakness and headaches. Physical Exam ED Triage Vitals [12/29/17 2218] Temp Heart Rate Respiratory Rate BP SpO2 98 F 71 18 129/60 99 % Temp Source Heart Rate Source Patient Position BP Location FiO2 % Oral Monitor Sitting Right arm -- Physical Exam Constitutional: She is oriented to person, place, and time. She appears well- developed and well-nourished. HENT: Head: Normocephalic and atraumatic. Eyes: Conjunctivae and EOM are normal. Pupils are equal, round, and reactive to light. Neck: Normal range of motion. Neck supple. Cardiovascular: Normal rate, regular rhythm, normal heart sounds and intact distal pulses. Exam reveals no gallop and no friction rub. No murmur heard. Pulmonary/Chest: Effort normal and breath sounds normal. No stridor. She has no wheezes. She has no rales. Abdominal: Soft. Bowel sounds are normal. She exhibits no distension. There is no tenderness. There is no rebound and no guarding. Musculoskeletal: Normal range of motion. She exhibits no edema, tenderness or deformity. Lymphadenopathy: She has no cervical adenopathy. Neurological: She is alert and oriented to person, place, and time. No cranial nerve deficit. Coordination normal. Skin: Skin is warm and dry. She is not diaphoretic. No erythema. Nursing note and vitals reviewed. ED Course ED Course as of Dec 30 2057WedDec 29, 2017 [address] Marcus (neurology). Requests CTA and pt will be seen by Dr. Cerna in the morning. [EC] Dorys Dec 30, 2017 0005 IV fluids and cefepime ordered. Lactic acid: (!!) 4.4 [EC] 0009 Creatinine elevated from baseline in care everywhere. I have updated Dr Jennifer Omalley by perfect serve. Will admit to her service pending ct head. [DF] 0030 Creatinine too elevated for cta head and neck., with get mri and us carotid. [DF] 0219 Ct head negative for acute finding. Pt pending MRI. [DF] ED Course User Index [DF] Mohan Reyes MD [EC] Jeannine Lancaster [facility] Number of Diagnoses or Management Options Acute kidney injury: Elevated serum lactate dehydrogenase: Weakness of both lower extremities: Diagnosis management comments: The differential diagnosis includes but not limited to toxic/metabolic encephalopathy (including hypoglycemia, electrolyte abnormalities, endocrine, hypoxia/hypercarbia), CVA/TIA/ICH, Drug ingestion or other environmental exposure, Infectious/sepsis, meningitis encephalitis, abscess, delirium/dementia, psychogenic, traumatic, seizure, iatrogenic. DDX includes causes considered but not specified given they were low prob or unlikely to cause immediate or disability. Workup for unlisted, unlikely, or benign causes would likely have yielded harm exceeding benefit. Amount and/or Complexity of Data Reviewed Clinical lab tests: ordered and reviewed Tests in the radiology section of CPT: ordered and reviewed Decide to obtain previous medical records or to obtain history from someone other than the patient: yes Review and summarize past medical records: yes Discuss the patient with other providers: yes Risk of Complications, Morbidity, and/or Mortality Presenting problems: high Diagnostic procedures: high Management options: high Labs Results for orders placed or performed during the hospital encounter of 12/29/17 Influenza antigen Result Value Ref Range Influenza antigen Negative for Influenza A/B antigen. Blood culture, aerobic & anaerobic Result Value Ref Range Blood culture isolate No growth after 12 hour/s of incubation. Blood culture, aerobic & anaerobic Result Value Ref Range Blood culture isolate No growth after 12 hour/s of incubation. Gram stain Result Value Ref Range Gram stain result Moderate WBC's Occasional Gram positive rods CBC with platelet and differential Result Value Ref Range WBC 7.69 4.50 - 11.00 k/uL RBC 4.15 (L) 4.20 - 5.50 m/uL HGB 12.6 12.0 - 16.0 g/dL HCT 38.2 37.0 - 47.0 % MCV 92.0 82.0 - 100.0 fL MCH 30.4 27.0 - 34.0 pg MCHC 33.0 31.0 - 37.0 g/dL RDW - SD 44.7 37.0 - 55.0 fL MPV 13.4 (H) 8.8 - 13.2 fL Platelet count 178 150 - 400 k/uL Nucleated RBC 0.00 /100 WBC Neutrophils 66.5 39.0 - 69.0 % Lymphocytes 21.5 (L) 25.0 - 45.0 % Monocytes 8.8 0.0 - 10.0 % Eosinophils 1.4 0.0 - 5.0 % Basophils 1.0 0.0 - 1.0 % Immature granulocytes 0.8 0.0 - 1.0 % Comprehensive metabolic panel Result Value Ref Range Sodium 141 135 - 148 mEq/L Potassium 3.4 (L) 3.5 - 5.0 mEq/L Chloride 99 98 - 112 mEq/L CO2 21 (L) 24 - 31 mEq/L Anion gap 21 (H) 7 - 15 mEq/L BUN 34 (H) 8 - 23 mg/dL Creatinine 2.3 (H) 0.5 - 0.9 mg/dL Glucose 229 (H) 65 - 99 mg/dL Calcium 9.9 8.8 - 10.2 mg/dL Protein 6.9 6.3 - 8.3 g/dL Albumin 4.4 3.5 - 5.0 g/dL A/G ratio 1.8 0.7 - 3.8 Alkaline phosphatase 98 35 - 104 U/L AST 42 (H) 10 - 35 U/L ALT 24 5 - 50 U/L Total bilirubin 0.6 0.0 - 1.2 mg/dL Troponin Result Value Ref Range Troponin <0.300 0.000 - 0.300 ng/mL Troponin Result Value Ref Range Troponin <0.300 0.000 - 0.300 ng/mL Prothrombin time with INR Result Value Ref Range Prothrombin time 13.1 12.0 - 15.0 sec INR 1.0 Partial thromboplastin time, activated Result Value Ref Range PTT 26.3 23.0 - 36.0 sec Urinalysis screen and microscopy, with reflex to culture Result Value Ref Range Specimen site Clean catch Color, UA Straw Appearance, UA Clear Specific gravity, UA 1.008 1.001 - 1.035 pH, UA 5.0 5.0 - 8.5 Protein, UA Negative Negative Glucose, UA Negative Negative Ketones, UA Negative Negative Bilirubin, UA Negative Negative Blood, UA Negative Negative Nitrite, UA Negative Negative Urobilinogen, UA Negative <2.0 Leukocyte esterase, UA Moderate (A) Negative Round epithelial cells, UA Few 0 - 1 /HPF WBC, UA 21-40 (H) 0 - 4 /HPF RBC, UA 0-5 0 - 2 /HPF Bacteria, UA Trace None seen Yeast, UA None seen Yeast with pseudohyphae, UA None seen Hyaline casts, UA 3-5 /LPF Lactic acid level, SEPSIS - Now and repeat 2x every 3 hours Result Value Ref Range Lactic acid 4.4 (HH) 0.5 - 2.2 mmol/L Lactic acid level, SEPSIS - Now and repeat 2x every 3 hours Result Value Ref Range Lactic acid 2.2 0.5 - 2.2 mmol/L Lipase level Result Value Ref Range Lipase 28 13 - 60 U/L Estimated GFR Result Value Ref Range GFR Non Af Amer 21 (A) mL/min/1.73 m2 GFR Af Amer 25 (A) mL/min/1.73 m2 Basic metabolic panel Result Value Ref Range Sodium 144 135 - 148 mEq/L Potassium 3.4 (L) 3.5 - 5.0 mEq/L Chloride 105 98 - 112 mEq/L CO2 22 (L) 24 - 31 mEq/L Anion gap 17 (H) 7 - 15 mEq/L BUN 29 (H) 8 - 23 mg/dL Creatinine 1.7 (H) 0.5 - 0.9 mg/dL Glucose 99 65 - 99 mg/dL Calcium 9.3 8.8 - 10.2 mg/dL Estimated GFR Result Value Ref Range GFR Non Af Amer 29 (A) mL/min/1.73 m2 GFR Af Amer 35 (A) mL/min/1.73 m2 Hemoglobin A1c Result Value Ref Range Hemoglobin A1C 6.2 (H) 4.0 - 6.0 % Lipid panel Result Value Ref Range Cholesterol 177 <200 mg/dL Triglycerides 239 (H) <150 mg/dL HDL cholesterol 35 (L) >40 mg/dL LDL cholesterol 119 (H) <100 mg/dL Lipid panel interpretation SeeBelow Thyroid stimulating hormone Result Value Ref Range TSH 9.32 (H) 0.27 - 4.20 uIU/mL POC glucose Result Value Ref Range POC glucose 244 (H) 65 - 99 mg/dL POC glucose Result Value Ref Range POC glucose 139 (H) 65 - 99 mg/dL ECG 12 lead Result Value Ref Range Ventricular rate 66 Atrial rate 66 IN interval 158 QRSD interval 84 QT interval 462 QTC interval 484 P axis 1 56 QRS axis 1 33 T wave axis 72 EKG impression Normal sinus rhythm-Nonspecific T wave abnormality-Prolonged QT-Abnormal ECG- No previous ECGs available- carotid duplex Result Value Ref Range Lt CCA Prox EDV 12.8 cm/s Lt CCA Prox PSV 71 cm/s Lt ECA Prox EDV 6.5 cm/s Lt ECA Prox PSV 68 cm/s Rt ECA Prox EDV 11.36 cm/s Lt ICA ProxEDV 17.5 cm/s Lt ICA ProxPSV 74.8 cm/s Rt ICA Prox EDV 16.4 cm/s Rt ICA Prox PSV 84.5 cm/s Lt ICA CCA Ratio 1.1 Rt ICA CCA Ratio 1.3 Lt CCA Max PSV 71.00 cm/s Rt CCA Max PSV 68.90 cm/s Lt ICA Max PSV 74.80 cm/s Rt ICA MaxPSV 87.80 cm/s Rt CCA Proc EDV 9.5 cm/s Rt CCA Proc PSV 56.6 cm/s Rt ICA DIST EDV 15.3 cm/s Rt ICA MID EDV 16.4 cm/s Lt ICA DIST EDV 10.3 cm/s Lt ICA DIST PSV 47.8 cm/s RT CAR BULB PSV 87.80 cm/s RT CCA DIST EDV 14.1 cm/s RT CCA DIST PSV 68.9 cm/s RT VB VINCENT 14.10 cm/s Lt Carotid Bulb EDV 16.40 cm/s Lt Carotid Bulb PSV 66.00 cm/s Rt Carotid Bulb EDV 7.60 cm/s Lt CCA Distal EDV 13.9 cm/s Lt CCA Distal PSV 52.3 cm/s Rt ECA PSV 145.70 cm/s Lt ICA Mid EDV 19.7 cm/s Lt ICA Mid PSV 74.8 cm/s Rt ICA Distal PSV 57 cm/s Rt ICA Mid PSV 66.9 cm/s Lt Vertebral Artery EDV 14.20 cm/s Lt Vertebral Artery PSV 69.3 cm/s Rt Vertebral Artery PSV 68.50 cm/s Radiology Xr Chest 1 Vw Portable Result Date: 12/30/2017 Narrative: EXAMINATION: XR CHEST 1 VW PORTABLE CLINICAL HISTORY: elevated lactate COMPARISON: None IMPRESSION: No radiographic evidence for acute cardiopulmonary process. Cardiomediastinal silhouette is within normal limits of size. Calcifications are identified within the aortic arch. Eventration of the right hemidiaphragm. Nonspecific nodule overlying the right lower lung measuring 1.9 cm may represent the patient's right nipple; attention on follow-up imaging. No focal or confluent airspace consolidation is seen to suggest acute pneumonia. No sizable pleural effusion. No pneumothorax identified. Surgical clips within the left breast are noted. No acute osseous abnormalities are visualized. [id number] Ct Head Wo Contrast Result Date: 12/30/2017 Narrative: EXAM: CT HEAD WO CONTRAST CLINICAL HISTORY: lower extremity weakness and dizziness TECHNIQUE: Noncontrast enhanced images of the brain were obtained from the skull base to the vertex. Both soft tissue and bone reconstruction algorithms were performed. CT scans are performed using radiation dose reduction techniques (iterative reconstruction and/or automated exposure control). Technical factors are evaluated and adjusted to ensure appropriate moderation of exposure. Automated dose management technology is applied to adjust radiation exposure while achieving a diagnostic quality image. COMPARISON: None. FINDINGS: The duran-white matter differentiation is preserved and without evidence of acute territorial infarction. Sulci and ventricles are prominent from age-related parenchymal volume loss. In addition, there is scattered subcortical and deep white matter hypoattenuation, likely reflective of chronic small vessel ischemic changes. There is no evidence for acute intracranial hemorrhage, mass, mass effect, hydrocephalus, or extra-axial fluid collection. Bilateral lens replacements are noted. Orbits are otherwise unremarkable in appearance. Minimal frothy secretions are identified within a single posterior right ethmoid air cell. Sinuses are clear. Mastoid air cells are normally pneumatized. Mild vascular calcifications are noted, most prominent within the bilateral cavernous ICAs. Osseous structures are intact. Dermal calcifications are noted. IMPRESSION: Mild to moderate involutional changes as detailed with no CT evidence for acute intracranial abnormality. [id number] Mri Brain Wo Contrast Result Date: 12/30/2017 Narrative: EXAMINATION: MRI BRAIN WO CONTRAST CLINICAL HISTORY: weakness COMPARISON: Brain CT dated December 30, 2017 TECHNIQUE: Multiplanar and multisequence MRI imaging of the brain was obtained without contrast. FINDINGS: On diffusion-weighted imaging, there is no evidence of acute ischemia and/restricted water diffusion in the brain parenchyma. No evidence of acute intracranial hemorrhage, mass lesion or focal extra-axial collection. On gradient-echo imaging, there are no abnormal intraparenchymal foci of magnetic susceptibility artifact to suggest deposition of blood products and/or abnormal mineralization. The ventricles and extra-axial spaces are mildly prominent bilaterally, reflecting underlying cerebral parenchymal volume loss. Confluent and discrete foci of T2 FLAIR signal change involve the periventricular, deep and subcortical white matter at the level of the centrum semiovale and bacon radiata. These are nonspecific, but most commonly related to chronic microvascular ischemic change in this age group. These are considered mild in terms of their extent. No sellar, suprasellar or pineal region mass is identified. Brainstem, cerebellum and visualized portions of the upper cervical cord appear unremarkable on this unenhanced MRI. Major intracranial flow voids at the skull base are identified. Bilateral lens extractions. Orbits are otherwise unremarkable. Retention cyst or polyp along the floor of the left maxillary sinus. IMPRESSION: 1. No acute intracranial abnormality identified. 2. Supratentorial white matter chronic microvascular ischemic change, considered mild in terms of its extent. [id number] Procedures ECG 12 lead Date/Time: 12/29/2017 11:36 PM Performed by: MOHAN REYES Authorized by: MOHAN REYES ECG reviewed by ED Physician in the absence of a medical center representative: yes Interpretation: Interpretation: normal Rate: ECG rate: 66 ECG rate assessment: normal Rhythm: Rhythm: sinus rhythm Ectopy: Ectopy: none QRS: QRS axis: Normal Conduction: Conduction: normal ST segments: ST segments: Normal T waves: T waves: normal Other findings: Other findings: prolonged qTc interval Other findings comment: Mildly prolonged Comments: qTc 484 Critical Care Performed by: MOHAN REYES Authorized by: MOHAN REYES Critical care provider statement: Critical care time (minutes): 30 Critical care time was exclusive of: Separately billable procedures and treating other patients Critical care was necessary to treat or prevent imminent or life-threatening deterioration of the following conditions: Metabolic crisis and sepsis Critical care was time spent personally by me on the following activities: Development of treatment plan with patient or surrogate, discussions with primary provider, evaluation of patient's response to treatment, examination of patient, obtaining history from patient or surrogate, re-evaluation of patient's condition, pulse oximetry, ordering and review of radiographic studies, ordering and review of laboratory studies, ordering and performing treatments and interventions, discussions with consultants and interpretation of cardiac output measurements James 'yes' if you are taking over critical care for this patient from another provider.: no Differential Diagnoses This patient has a differential diagnosis of . Final Diagnoses Final diagnoses: Acute kidney injury Weakness of both lower extremities Elevated serum lactate dehydrogenase Disposition This patient has a disposition of Admit. ED Attestations Scribe Attestation: This document is recorded by Jeannine Lancaster acting as a scribe under the direction and presence of MOHAN REYES. Provider attestation of scribe: Jeannine Lancaster: I personally performed the services recorded by the scribe in my presence. I confirm the scribe's documentation has been reviewed by me to accurately record my work, treatment, procedures, and medical decision making. Jeannine Lancaster 12/29/17 2306 Jeannine Lancaster 12/29/17 2337 Jeannine Lancaster 12/30/17 0100 Mohan Reyes MD 12/30/17 [id number] Performing Organization Address City/[facility] Phone Number [facility] [address] [place] [address] * Partial thromboplastin time, activated (12/29/2017 11:26 PM) PTT 26.3 23.0 - 36.0 sec [facility] DEPARTMENT OF Comment: PATHOLOGY AND PTT therapeutic range for GENOMIC MEDICINE unfractionated heparin is 61.0-112.0 seconds which corresponds to Anti-Xa 0.3-0.7 U/ml. Specimen Blood Performing Organization Address [facility]/Zipcode Phone Number [address] [place] [address] PATHOLOGY AND GENOMIC MEDICINE * Prothrombin time with INR (12/29/2017 11:26 PM) Prothrombin time 13.1 12.0 - 15.0 sec [facility] DEPARTMENT OF PATHOLOGY AND GENOMIC MEDICINE INR 1.0 [facility] DEPARTMENT OF Comment: PATHOLOGY AND The International Normalized GENOMIC MEDICINE Ratio (INR) is a therapeutic monitoring tool for patients who are stable on oral anticoagulant therapy. An INR of 2.0-3.0 is suggested for deep vein thrombosis/pulmonary embolism. Specimen Blood Performing Organization Address City/State/Zipcode Phone Number [facility] [place] [address] [place] [address] PATHOLOGY AND GENOMIC MEDICINE * CBC with platelet and differential (12/29/2017 11:26 PM) WBC 7.69 4.50 - 11.00 k/uL [facility] DEPARTMENT OF PATHOLOGY AND GENOMIC MEDICINE RBC 4.15 (L) 4.20 - 5.50 m/uL [facility] DEPARTMENT OF PATHOLOGY AND GENOMIC MEDICINE HGB 12.6 12.0 - 16.0 g/dL [facility] DEPARTMENT OF PATHOLOGY AND GENOMIC MEDICINE HCT 38.2 37.0 - 47.0 % [facility] DEPARTMENT OF PATHOLOGY AND GENOMIC MEDICINE MCV 92.0 82.0 - 100.0 fL [facility] DEPARTMENT OF PATHOLOGY AND GENOMIC MEDICINE MCH 30.4 27.0 - 34.0 pg [facility] DEPARTMENT OF PATHOLOGY AND GENOMIC MEDICINE MCHC 33.0 31.0 - 37.0 g/dL [facility] DEPARTMENT OF PATHOLOGY AND GENOMIC MEDICINE RDW - SD 44.7 37.0 - 55.0 fL [facility] DEPARTMENT OF PATHOLOGY AND GENOMIC MEDICINE MPV 13.4 (H) 8.8 - 13.2 fL [facility] DEPARTMENT OF PATHOLOGY AND GENOMIC MEDICINE Platelet count 178 150 - 400 k/uL [facility] DEPARTMENT OF PATHOLOGY AND GENOMIC MEDICINE Nucleated RBC 0.00 /100 WBC [facility] DEPARTMENT OF PATHOLOGY AND GENOMIC MEDICINE Neutrophils 66.5 39.0 - 69.0 % [facility] DEPARTMENT OF PATHOLOGY AND GENOMIC MEDICINE Lymphocytes 21.5 (L) 25.0 - 45.0 % [facility] DEPARTMENT OF PATHOLOGY AND GENOMIC MEDICINE Monocytes 8.8 0.0 - 10.0 % [facility] DEPARTMENT OF PATHOLOGY AND GENOMIC MEDICINE Eosinophils 1.4 0.0 - 5.0 % [facility] DEPARTMENT OF PATHOLOGY AND GENOMIC MEDICINE Basophils 1.0 0.0 - 1.0 % [facility] DEPARTMENT OF PATHOLOGY AND GENOMIC MEDICINE Immature granulocytes 0.8Comment: "Immature 0.0 - 1.0 % [facility] DEPARTMENT OF granulocytes" (promyelocytes, PATHOLOGY AND myelocytes, metamyelocytes) [facility] Specimen Blood Performing Organization Address [facility] Phone Number [address] [place] [address] PATHOLOGY AND GENOMIC MEDICINE * Influenza antigen (12/29/2017 11:26 PM) Influenza antigen Negative for Influenza A/B [facility] DEPARTMENT OF antigen. PATHOLOGY AND Comment: GENOMIC MEDICINE Specimen Information Specimen Source: Nares Specimen Site: Right Specimen Nares - Right Performing Organization Address [facility] Phone Number [address] [place] [address] PATHOLOGY AND GENOMIC MEDICINE * Lipase level (12/29/2017 11:26 PM) Lipase 28 13 - 60 U/L [facility] DEPARTMENT OF PATHOLOGY AND GENOMIC MEDICINE Specimen Plasma specimen Performing Organization Address [facility] Phone Number [address] [place] [address] PATHOLOGY AND [facility] * Comprehensive metabolic panel (12/29/2017 11:26 PM) Sodium 141 135 - 148 mEq/L [facility] DEPARTMENT OF PATHOLOGY AND GENOMIC MEDICINE Potassium 3.4 (L) 3.5 - 5.0 mEq/L [facility] DEPARTMENT OF PATHOLOGY AND GENOMIC MEDICINE Chloride 99 98 - 112 mEq/L [facility] DEPARTMENT OF PATHOLOGY AND GENOMIC MEDICINE CO2 21 (L) 24 - 31 mEq/L [facility] DEPARTMENT OF PATHOLOGY AND GENOMIC MEDICINE Anion gap 21 (H) 7 - 15 mEq/L [facility] DEPARTMENT OF Comment: PATHOLOGY AND Starting from January [facility] , anion gap calculation no longer incorporates potassium. Please note the change. BUN 34 (H) 8 - 23 mg/dL [facility] DEPARTMENT OF PATHOLOGY AND GENOMIC MEDICINE Creatinine 2.3 (H) 0.5 - 0.9 mg/dL [facility] DEPARTMENT OF PATHOLOGY AND GENOMIC MEDICINE Glucose 229 (H) 65 - 99 mg/dL [facility] DEPARTMENT OF PATHOLOGY AND GENOMIC MEDICINE Calcium 9.9 8.8 - 10.2 mg/dL [facility] DEPARTMENT OF PATHOLOGY AND GENOMIC MEDICINE Protein 6.9 6.3 - 8.3 g/dL [facility] DEPARTMENT OF Comment: PATHOLOGY AND GENOMIC MEDICINE 4.6-7.0 g/dL 1 week 4.4-7.6 g/dL 7 months-1year 5.1-7.3 g/dL 1-2 years5.6-7 .5 g/dL >3 years6.0-8 .0 g/dL 18-150 6.3-8.3 g/dL Albumin 4.4 3.5 - 5.0 g/dL [facility] DEPARTMENT OF PATHOLOGY AND GENOMIC MEDICINE A/G ratio 1.8 0.7 - 3.8 [facility] DEPARTMENT OF PATHOLOGY AND GENOMIC MEDICINE Alkaline phosphatase 98 35 - 104 U/L [facility] DEPARTMENT OF PATHOLOGY AND GENOMIC MEDICINE AST 42 (H) 10 - 35 U/L [facility] DEPARTMENT OF PATHOLOGY AND GENOMIC MEDICINE ALT 24 5 - 50 U/L [facility] DEPARTMENT OF PATHOLOGY AND GENOMIC MEDICINE Total bilirubin 0.6 0.0 - 1.2 mg/dL [facility] DEPARTMENT OF PATHOLOGY AND GENOMIC MEDICINE Specimen Plasma specimen Performing Organization Address City/State/Zipcode Phone Number [address] [place] [address] PATHOLOGY AND GENOMIC MEDICINE * CRITICAL CARE (12/29/2017 10:45 PM) Narrative Performed At Mohan Reyes MD 12/30/20178:58 PM Critical Care Performed by: MOHAN REYES Authorized by: MOHAN REYES Critical care provider statement: Critical care time (minutes):30 Critical care time was exclusive of:Separately billable procedures and treating other patients Critical care was necessary to treat or prevent imminent or life-threatening deterioration of the following conditions:Metabolic crisis and sepsis Critical care was time spent personally by me on the following activities:Development of treatment plan with patient or surrogate, discussions with primary provider, evaluation of patient's response to treatment, examination of patient, obtaining history from patient or surrogate, re-evaluation of patient's condition, pulse oximetry, ordering and review of radiographic studies, ordering and review of laboratory studies, ordering and performing treatments and interventions, discussions with consultants and interpretation of cardiac output measurements James 'yes' if you are taking over critical care for this patient from another provider.: no after 08/03/2017 Insurance Payer Benefit Subscriber ID Type Phone Address Plan / Group MEDICARE MEDICARE xxxxxxxxxx Medicare [place], [place] PART A AND B CIGNA CIGNA [employer] xxxxxxxxx O
--- OUTSIDE RECORDS SUMMARY | 2018-08-16 10:46 | XMS REPORT ---
Author Author [facility] Address Unknown Phone Unavailable Care Team Providers Care Retail Planning Manager Name Role Phone Deepa CARMICHAEL Unavailable Unavailable SWEET, A LAIRD Unavailable Unavailable Problems This patient has no known problems. Allergies, Adverse Reactions, Alerts This patient has no known allergies or adverse reactions. Medications This patient has no known medications. Results Test Description Test Time Test Comments Text Results Atomic Results Result Comments CHEST SINGLE (PORTABLE) 2018-08-04 14:35:00 [place] [address] Patient Name: JOSÉ LUIS GILES MR #: [id number] : 1940 Age/Sex: 78/F Req #: [id number] Adm Physician: Ordered by: YANET PATRICIO NEUROPATHOLOGIST Report #: [id number] Location: ER Room/Bed: Procedure: [id number] DX/CHEST SINGLE (PORTABLE) Exam Date: 08/04/18 Exam Time: 1422 REPORT STATUS: Signed Examination: Single AP view of the chest. COMPARISON: 09/16/2017 INDICATION: Syncope DISCUSSION: Lungs are well-inflated. No focal consolidation, pleural effusion, or pneumothorax. Mild, coarse prominence of the pulmonary interstitium is unchanged. Stable cardiomediastinal contour. Surgical clips along the left lateral chest wall. IMPRESSION: No acute cardiopulmonary abnormality. Signed by: Dr. Artem Hooks M.D. on 08/04/2018 2:38 PM Dictated By: ARTEM HOOKS MD 37 Transcribed By: SHAWN on 08/04/181437 COPY TO: YANET PATRICIO NP CT CERVICAL SPINE WO 2018-08-04 14:26:00 [place] [address] Patient Name: JOSÉ LUIS GILES MR #: [id number] : 1940 Age/Sex: 78/F Req #: [id number] Adm Physician: Ordered by: NICK CARMICHAEL MD Report #: [id number] Location: ER Room/Bed: Procedure: [id number] CT/CT CERVICAL SPINE WO Exam Date: 08/04/18 Exam Time: 1350 REPORT STATUS: Signed EXAMINATION: Head and cervical spine CT without contrast. HISTORY: Syncope, fall, trauma and pain. COMPARISON: Head CT of 02/29/2012 TECHNIQUE: Multidetector axial images were obtained about contrast from the foramen magnum to the vertex and through the cervical spine. The images were reconstructed using brain and bone algorithms. Thin section brain images were reformatted into coronal and sagittal planes. Dose modulation, iterative reconstruction, and/or weight based adjustment of the mA/kV was utilized to reduce the radiation dose to as low as reasonably achievable. HEAD CT FINDINGS: Skull: No lytic or blastic lesions. No fractures. Parenchyma: Progression to moderate confluent mildly frontal white matter chronic microvascular ischemic changes. No mass, hemorrhage or CT evidence of acute vascular insult. Brain volume: Mild generalized volume loss Ventricles: No hydrocephalus or displacement. Arteries: No density suggestive of thrombus. Dural sinuses: No abnormal density. Extra-axial spaces: No abnormal density. Foramen magnum: No mass, Chiari malformation, or basilar invagination. Sella: No obvious mass. Paranasal/mastoid sinuses: Imaged portions unremarkable. CERVICAL SPINE CT FINDINGS: Alignment:Normal alignment and lordosis. Soft tissues: Normal. Vertebrae: Normal height and density. No acute fracture, infection or neoplasm. Degenerative changes: C1-C2: Degenerative changes without stenoses C2-C3: Normal C3-C4: Disc osteophyte complex formation, uncovertebral and facet hypertrophy worst on the right. Moderate right and mild left foraminal stenosis. Mild canal stenoses C4-C5: Uncovertebral and facet hypertrophy mainly on the right. Moderately severe right foraminal stenosis. C5-C6: Disc osteophyte, inflammation, bilateral uncovertebral and facet arthrosis. Moderate it least severe bilateral foraminal stenoses. C6-C7: Unremarkable C7-T1: Unremarkable IMPRESSION: Head CT: 1. No acute postraumatic intracranial hemorrhage. 2. Moderate chronic microvascular ischemic changes. Otherwise no changes compared to head CT on 02/29/2012. Cervical spine CT: 1. No acute fractures or dislocations. 2. Chronic degenerative changes as described. Note: Acute post traumatic spinal cord, vascular or ligamentous injury cannot adequately be assessed with CT. Signed by: Dr. Paula Sosa M.D. on 08/04/2018 2:32 PM Dictated By: PAULA SOSA MD 1432 Transcribed By: SHAWN on 08/04/18 1432 COPY TO: NICK CARMICHAEL MD CT BRAIN WO 2018-08-04 14:26:00 [place] [address] Patient Name: JOSÉ LUIS GILES MR #: [id number] : 1940 Age/Sex: 78/F Req #: [id number] Adm Physician: Ordered by: YANET PATRICIO NEUROPATHOLOGIST Report #: [id number] Location: Room/Bed: Procedure: [id number] CT/CT BRAIN WO Exam Date: 08/04/18 Exam Time: 1350 REPORT STATUS: Signed EXAMINATION: Head and cervical spine CT without contrast. HISTORY: Syncope, fall, trauma and pain. COMPARISON: Head CT of 02/29/2012 TECHNIQUE: Multidetector axial images were obtained about contrast from the foramen magnum to the vertex and through the cervical spine. The images were reconstructed using brain and bone algorithms. Thin section brain images were reformatted into coronal and sagittal planes. Dose modulation, iterative reconstruction, and/or weight based adjustment of the mA/kV was utilized to reduce the radiation dose to as low as reasonably achievable. HEAD CT FINDINGS: Skull: No lytic or blastic lesions. No fractures. Parenchyma: Progression to moderate confluent mildly frontal white matter chronic microvascular ischemic changes. No mass, hemorrhage or CT evidence of acute vascular insult. Brain volume: Mild generalized volume loss Ventricles: No hydrocephalus or displacement. Arteries: No density suggestive of thrombus. Dural sinuses: No abnormal density. Extra-axial spaces: No abnormal density. Foramen magnum: No mass, Chiari malformation, or basilar invagination. Sella: No obvious mass. Paranasal/mastoid sinuses: Imaged portions unremarkable. CERVICAL SPINE CT FINDINGS: Alignment:Normal alignment and lordosis. Soft tissues: Normal. Vertebrae: Normal height and density. No acute fracture, infection or neoplasm. Degenerative changes: C1-C2: Degenerative changes without stenoses C2-C3: Normal C3-C4: Disc osteophyte complex formation, uncovertebral and facet hypertrophy worst on the right. Moderate right and mild left foraminal stenosis. Mild canal stenoses C4-C5: Uncovertebral and facet hypertrophy mainly on the right. Moderately severe right foraminal stenosis. C5-C6: Disc osteophyte, inflammation, bilateral uncovertebral and facet arthrosis. Moderate it least severe bilateral foraminal stenoses. C6-C7: Unremarkable C7-T1: Unremarkable IMPRESSION: Head CT: 1. No acute postraumatic intracranial hemorrhage. 2. Moderate chronic microvascular ischemic changes. Otherwise no changes compared to head CT on 02/29/2012. Cervical spine CT: 1. No acute fractures or dislocations. 2. Chronic degenerative changes as described. Note: Acute post traumatic spinal cord, vascular or ligamentous injury cannot adequately be assessed with CT. Signed by: Dr. Paula Sosa M.D. on 08/04/2018 2:32 PM Dictated By: PAUAL SOSA MD 31 Transcribed By: SHAWN on 08/04/181431 COPY TO: YANET PATRICIO NP ABDOMEN ACUTE SERIES W/PA CXR [place] [address] Patient Name: JOSÉ LUIS GILES MR #: [id number] : 1940 Age/Sex: 77/F Req #: [id number] Adm Physician: Ordered by: ATA PARK NP Report #: [id number] Location: ER Room/Bed: Procedure: [id number] DX/ABDOMEN ACUTE SERIES W/PA CXR Exam Date: 09/16/17 Exam Time: 1820 REPORT STATUS: Signed Exam: Abdomen acute series with PA chest History: Abdominal pain. Nausea and vomiting. Colonoscopy. Findings: Surgical clips are seen in the gallbladder fossa There is a nonobstructed bowel gas pattern with a moderate amount of retained feces in the colon. Questionable punctate calcifications in the mid left abdomen. No free air under the diaphragm. Surgical clips over the left lateral breast. Chronic appearing changes in the lungs. Impression: Findings which could be due to constipation. Signed by: Dr. Teo Murrell M.D. on 09/16/2017 7:25 PM Dictated By: TEO MURRELL MD, MD 24 Transcribed By: SHAWN on 09/16/171924 COPY TO: ATA PARK NP
--- OUTSIDE RECORDS SUMMARY | 2018-08-16 10:55 | XMS REPORT | Clinical Summary ---
Author Author [employer] Organization [employer] Address Unknown Phone Unavailable Care Team Providers Care Mason Helper Name Role Phone Ambika Lacey MD PCP [...] Outreach 04/13/2018 Emergency Emergency Medicine Benedict Hartman, BULK GAS SPECIALIST-C Acute pain of right knee Elian Valenzuela (Primary Dx); MD Joel Groin strain, right, initial encounter 03/09/2018 Telephone Neurology Devon Arguelles MA 02/18/2018 Office Visit Neurology Meghna Marcus MD Advanced dementia (Primary Dx); Mood disorder; Orthostatic hypotension; Fall, sequela 02/18/2018 Orders Only Neurology Meghna Marcus MD 12/31/2017 Patient Quality Lizy Cazares, JEANE Outreach 12/30/2017 Procedure Pass General Surgery 12/29/2017 [facility] General Surgery Mohan Reyes MD Acute kidney [...] Routine 12/31/2017 Results for this 11:54 AM WIRE TAPER procedure are in the results section. POC GLUCOSE Routine 12/31/2017 Results for this 5:35 AM WIRE TAPER procedure are in the results section. ZZESTIMATED GFR Routine 12/31/2017 Results for this 4:35 AM WIRE TAPER procedure are in the results section. BASIC METABOLIC PANEL Routine 12/31/2017 Results for this 4:35 AM WIRE TAPER procedure are in the results section. POC GLUCOSE Routine 12/30/2017 Results for this 9:01 PM WIRE TAPER procedure are in the results section. POC GLUCOSE Routine 12/30/2017 Results for this 5:17 PM WIRE TAPER procedure are in the results section. US CAROTID DUPLEX Routine 12/30/2017 Results for this BILATERAL 10:30 AM WIRE TAPER procedure are in the results section. MRI BRAIN WO CONTRAST STAT 12/30/2017 Results for this 10:02 AM WIRE TAPER procedure are in the results section. THYROID STIMULATING Routine 12/30/2017 Results for this HORMONE 4:09 AM WIRE TAPER procedure are in the results section. SEDIMENTATION RATE Routine 12/30/2017 Results for this 4:09 AM WIRE TAPER procedure are in the results section. LIPID PANEL Routine 12/30/2017 Results for this 4:09 AM WIRE TAPER procedure are in the results section. HEMOGLOBIN A1C Routine 12/30/2017 Results for this 4:09 AM WIRE TAPER procedure are in the results section. TROPONIN Timed 12/30/2017 Results for this 4:09 AM WIRE TAPER procedure are in the results section. ZZESTIMATED GFR Routine 12/30/2017 Results for this 4:08 AM WIRE TAPER procedure are in the results section. BASIC METABOLIC PANEL Routine 12/30/2017 Results for this 4:08 AM WIRE TAPER procedure are in the results section. LACTIC ACID LEVEL, SEPSIS Timed 12/30/2017 Results for this - NOW AND REPEAT 2X EVERY 4:08 AM WIRE TAPER procedure are in the 3 HOURS results section. URINALYSIS SCREEN AND STAT 12/30/2017 Results for this MICROSCOPY, WITH REFLEX 2:35 AM WIRE TAPER procedure are in the TO CULTURE results section. GRAM STAIN STAT 12/30/2017 Results for this 2:35 AM WIRE TAPER procedure are in the results section. URINE CULTURE STAT 12/30/2017 Results for this 2:35 AM WIRE TAPER procedure are in the results section. CT HEAD WO CONTRAST STAT 12/30/2017 Results for this 12:46 AM WIRE TAPER procedure are in the results section. XR CHEST 1 VW PORTABLE STAT 12/30/2017 Results for this 12:30 AM WIRE TAPER procedure are in the results section. BLOOD CULTURE, AEROBIC & Routine 12/30/2017 Results for this ANAEROBIC 12:22 AM WIRE TAPER procedure are in the results section. BLOOD CULTURE, AEROBIC & Routine 12/30/2017 Results for this ANAEROBIC 12:15 AM WIRE TAPER procedure are in the results section. ECG 12-LEAD STAT 12/29/2017 Results for this 11:33 PM WIRE TAPER procedure are in the results section. ZZESTIMATED GFR STAT 12/29/2017 Results for this 11:26 PM WIRE TAPER procedure are in the results section. LIPASE LEVEL STAT 12/29/2017 Results for this 11:26 PM WIRE TAPER procedure are in the results section. LACTIC ACID LEVEL, SEPSIS STAT 12/29/2017 Results for this - NOW AND REPEAT 2X EVERY 11:26 PM WIRE TAPER procedure are in the 3 HOURS results section. PARTIAL THROMBOPLASTIN STAT 12/29/2017 Results for this TIME (PTT) 11:26 PM WIRE TAPER procedure are in the results section. PROTHROMBIN TIME WITH INR STAT 12/29/2017 Results for this 11:26 PM WIRE TAPER procedure are in the results section. TROPONIN STAT 12/29/2017 Results for this 11:26 PM WIRE TAPER procedure are in the results section. COMPREHENSIVE METABOLIC STAT 12/29/2017 Results for this PANEL 11:26 PM WIRE TAPER procedure are in the results section. HC COMPLETE BLD COUNT STAT 12/29/2017 Results for this W/AUTO DIFF 11:26 PM WIRE TAPER procedure are in the results section. INFLUENZA ANTIGEN Routine 12/29/2017 Results for this 11:26 PM WIRE TAPER procedure are in the results section. [place] [facility], E/M Routine 12/29/2017 Results for this 30-74 MINUTES 10:45 PM WIRE TAPER procedure are in the results section. POC GLUCOSE Routine 12/29/2017 Results for this 10:23 PM WIRE TAPER procedure are in the results section. after [...] left parotid gland. No evidence of fracture. [id number] Procedure Note Hm Interface, Radiology Results Incoming [...] left parotid gland. No evidence of fracture. [id number] Performing Organization Address City/State/Zipcode Phone Number [facility] [address] [place] [address] * CT Head Wo Contrast (05/24/2018 8:32 AM) Only the most recent of 2 results within the time period is included. Narrative Performed At EXAMINATION:CT HEAD WO CONTRAST RADIANT CLINICAL HISTORY:Head [id number] clinical riskinitial exam, fall from standingleft temporal [...] hematoma formation. No evidence of underlying fracture. [id number] Procedure Note Interface, Radiology Results Incoming - [...] hematoma formation. No evidence of underlying fracture. [id number] Performing Organization Address City/State/Zipcode Phone Number [facility] [address] [place] [address] * XR Knee 4+ Vw Right (04/13/2018 [...] No joint effusion. Atherosclerotic vascular calcifications present. [facility]-[id number] Procedure Note Hm Interface, Radiology Results Incoming [...] No joint effusion. Atherosclerotic vascular calcifications present. [facility]-[id number] Performing Organization Address [facility] Phone Number [facility] [address] [place] [address] * Thyroperoxidase antibody (02/18/2018 12:30 PM) Thyroperoxidase Ab 9 (H) <9 IU/mL [facility] Other Results Text Performing Organization Information: Site ID: [id number] Name: [facility] Address: [address] [place] [id number] Director: Dr. Patricio Hampton Performing Organization Address [facility] Phone Number [facility] [employer] [address] [address] II * T3 (02/18/2018 12:30 PM) T3 73 (L) 76 - 181 ng/dL [facility] [place] Other Results Text Performing Organization Information: Site ID: [id number] Name: [facility] Address: [address] [place] [id number] Director: Neetu Lai Performing Organization Address [facility]code Phone Number [facility] [address] [address] * Thyroid stimulating hormone (02/18/2018 12:30 PM) Only the most recent of 2 results within the time period is included. TSH 5.86 (H) 0.40 - 4.50 mIU/L [facility] [place] Other Results Text Performing Organization Information: Site ID: [id number] Name: [facility] Address: [address] [place] [address] Director: Neetu Lai Performing Organization Address [facility] Hospitalcode [place] [address] * T4, free (02/18/2018 12:30 PM) T4, free 2.0 (H) 0.8 - 1.8 ng/dL [employer] [place] Other Results Text Performing Organization Information: Site ID: [id number] Name: [facility] Address: [address] [place], [place] [id number] Director: Neetu Lai Performing Organization Address [facility] Hospitalcode [place] [address] * Vitamin B12 level (02/18/2018 12:30 PM) Vitamin B12 779 200 - 1,100 pg/mL [employer] [employer] [place] Other Results Text Performing Organization Information: Site ID: [id number] Name: [facility] Address: [address] [place] [address] Director: Neetu Lai Performing Organization Address [facility] [place] [address] * POC glucose (12/31/2017 11:54 AM) Only the most recent of 5 results within the time period is included. POC glucose 110 (H) 65 - 99 mg/dL [facility] DEPARTMENT OF Comment: PATHOLOGY AND Meter ID: [id number] GENOMIC MEDICINE Floor Inspector: Jet Staley Performing Organization Address City/[facility] Hospitalcode Phone Number [facility] DEPARTMENT [address] [place] [address] PATHOLOGY AND GENOMIC MEDICINE * Estimated GFR (12/31/2017 4:35 AM) Only the most recent of 3 results within the time period is included. GFR Non Af Amer 48 (A) mL/min/1.73 m2 [facility] DEPARTMENT PATHOLOGY [facility] GFR Af Amer 59 (A) mL/min/1.73 m2 [facility] DEPARTMENT OF Comment: PATHOLOGY AND Chronic kidney disease: <60 [facility] mL/min/1.73m2 Kidney failure: <15 mL/min/1.73m2 The [...] Americans. Specimen Plasma specimen Performing Organization Address [facility]code Phone Number [address] [place] [phone] [facility] * Basic metabolic panel (12/31/2017 4:35 AM) Only the most recent of 2 results within the time period is included. Sodium 143 135 - 148 mEq/L [facility] PATHOLOGY [facility] Potassium 3.2 (L) 3.5 - 5.0 mEq/L [facility] PATHOLOGY [facility] Chloride 102 98 - 112 mEq/L [facility] PATHOLOGY [facility] Artillery [facility] CO2 26 24 - 31 mEq/L [facility] PATHOLOGY [facility] Artillery [facility] Anion gap 15 7 - 15 mEq/L [facility] DEPARTMENT OF Comment: PATHOLOGY AND Starting from January [facility] , anion gap calculation no longer incorporates potassium. Please note the change. BUN 18 8 - 23 mg/dL [facility] DEPARTMENT PATHOLOGY AND [facility] Creatinine 1.1 (H) 0.5 - 0.9 mg/dL [facility] PATHOLOGY AND Artillery [facility] Glucose 142 (H) 65 - 99 mg/dL [facility] PATHOLOGY [facility] Artillery [facility] Calcium 9.7 8.8 - 10.2 mg/dL [facility] Artillery [facility] Specimen Plasma specimen Performing Organization Address City/[facility]code Phone Number [address] [place] [address] [facility] * PV carotid duplex (12/30/2017 [...] Address City/State/Zipcode Phone Number [facility] [address] [place] [address] * MRI Brain Wo Contrast (12/30/2017 10:02 AM) Narrative Performed At EXAMINATION: MRI BRAIN WO CONTRAST [facility] CLINICAL HISTORY: weakness COMPARISON:Brain CT dated December [...] considered mild in terms of its extent. [id number] Procedure Note Interface, Radiology Results Incoming - 12/30/2017 10:12 AM WIRE TAPER EXAMINATION: MRI BRAIN WO CONTRAST CLINICAL HISTORY: [...] considered mild in terms of its extent. [id number] Performing Organization Address [facility]/Zipcode Phone Number [facility] [address] [place] [address] * Troponin (12/30/2017 4:09 AM) Only the most recent of 2 results within the time period is included. Troponin <0.300 0.000 - 0.300 ng/mL [facility] DEPARTMENT OF Comment: PATHOLOGY AND 0.30 - 1.49 GENOMIC MEDICINE ng/mlMay indicate increased risk of acute coronary syndrome. >=1.5 ng/ml Consistent with acute myocardial infarction. The diagnostic value of a single normal or non-diagnostic result is questionable.Serial samples at 2-6 hour intervals are required to rule out acute myocardial injury. Specimen Plasma specimen Performing Organization Address [facility] Hospitalcoin Phone Number [address] [place] [phone] PATHOLOGY AND GENOMIC MEDICINE * Sedimentation rate (12/30/2017 4:09 AM) Sedimentation rate 6 0 - 20 mm/hr [facility] DEPARTMENT OF PATHOLOGY AND GENOMIC MEDICINE Specimen Blood Performing Organization Address [facility] Phone Number [address] [place] [address] PATHOLOGY AND GENOMIC MEDICINE * Hemoglobin A1c (12/30/2017 4:09 AM) Hemoglobin A1C 6.2 (H) 4.0 - 6.0 % [facility] DEPARTMENT OF Comment: PATHOLOGY AND GENOMIC MEDICINE Less than 6% - Goal of therapy for Type II Diabetes Less than 7%-Goal of therapy for Type I Diabetes Less than 8%-Accepta ble control for Type I or Type II Diabetes Greater than 8%-Unacceptabl e control; action indicated. ([id number]) Specimen Blood Performing Organization Address [facility]/Zipcode Phone Number [facility] [place] [id number] [place] [address] [place] [address] PATHOLOGY AND GENOMIC MEDICINE * Lipid panel (12/30/2017 4:09 AM) Cholesterol 177 <200 mg/dL [facility] DEPARTMENT OF PATHOLOGY AND GENOMIC MEDICINE Triglycerides 239 (H) <150 mg/dL [facility] DEPARTMENT OF PATHOLOGY AND GENOMIC MEDICINE HDL cholesterol 35 (L) >40 mg/dL [facility] DEPARTMENT OF PATHOLOGY AND GENOMIC MEDICINE LDL cholesterol 119 (H)Comment: Result <100 mg/dL [facility] DEPARTMENT obtained by direct LDL PATHOLOGY AND measurement GENOMIC MEDICINE Lipid panel SeeBelow [facility] DEPARTMENT OF interpretation Comment: PATHOLOGY AND Total [...] mg/dL) Specimen Plasma specimen Performing Organization Address [facility]/Zipcode Phone Number [facility] [place] [place] [address] [place] [address] PATHOLOGY AND GENOMIC MEDICINE * Lactic acid level, SEPSIS - Now and repeat 2x every 3 hours (12/30/2017 4:08 AM) Only the most recent of 2 results within the time period is included. Lactic acid 2.2 0.5 - 2.2 mmol/L [facility] DEPARTMENT OF PATHOLOGY AND GENOMIC MEDICINE Specimen Plasma specimen Performing Organization Address [facility] Phone Number [address] [place] [address] PATHOLOGY AND GENOMIC MEDICINE * Urinalysis screen and microscopy, with reflex to culture (12/30/2017 2:35 AM) Specimen site Clean catch [facility] DEPARTMENT OF PATHOLOGY AND GENOMIC MEDICINE Color, UA Straw [facility] DEPARTMENT OF PATHOLOGY AND GENOMIC MEDICINE Appearance, UA Clear [facility] DEPARTMENT OF PATHOLOGY AND GENOMIC MEDICINE Specific gravity, UA 1.008 1.001 - 1.035 [facility] DEPARTMENT OF PATHOLOGY AND GENOMIC MEDICINE pH, UA 5.0 5.0 - 8.5 [facility] DEPARTMENT OF PATHOLOGY AND GENOMIC MEDICINE Protein, UA Negative Negative [facility] DEPARTMENT OF PATHOLOGY AND GENOMIC MEDICINE Glucose, UA Negative Negative [facility] DEPARTMENT OF PATHOLOGY AND GENOMIC MEDICINE Ketones, UA Negative Negative [facility] DEPARTMENT OF PATHOLOGY AND GENOMIC MEDICINE Bilirubin, UA Negative Negative [facility] DEPARTMENT OF PATHOLOGY AND GENOMIC MEDICINE Blood, UA Negative Negative [facility] DEPARTMENT OF PATHOLOGY AND GENOMIC MEDICINE Nitrite, UA Negative Negative [facility] DEPARTMENT OF PATHOLOGY AND GENOMIC MEDICINE Urobilinogen, UA Negative <2.0 [facility] DEPARTMENT OF PATHOLOGY AND GENOMIC MEDICINE Leukocyte esterase, UA Moderate (A) Negative [facility] DEPARTMENT OF PATHOLOGY AND GENOMIC MEDICINE Round epithelial cells, Few 0 - 1 /HPF [facility] DEPARTMENT OF UA PATHOLOGY AND GENOMIC MEDICINE WBC, UA 21-40 (H) 0 - 4 /HPF [facility] DEPARTMENT OF PATHOLOGY AND GENOMIC MEDICINE RBC, UA 0-5 0 - 2 /HPF [facility] DEPARTMENT OF PATHOLOGY AND GENOMIC MEDICINE Bacteria, UA Trace None seen [facility] DEPARTMENT OF PATHOLOGY AND GENOMIC MEDICINE Yeast, UA None seen [facility] DEPARTMENT OF PATHOLOGY AND GENOMIC MEDICINE Yeast with pseudohyphae, None seen [facility] UA PATHOLOGY AND GENOMIC MEDICINE Hyaline casts, UA 3-5 /LPF [facility] DEPARTMENT OF PATHOLOGY AND GENOMIC MEDICINE Specimen Urine Performing Organization Address [facility] Phone Number [address] [place] [address] PATHOLOGY AND GENOMIC MEDICINE * Gram stain (12/30/2017 2:35 AM) Gram stain result Moderate WBC's [facility] DEPARTMENT OF Occasional Gram positive rods PATHOLOGY AND Comment: GENOMIC MEDICINE Specimen Information Specimen Source: Urine Specimen Site: Clean catch Specimen Urine Performing Organization Address City/State/Zipcode Phone Number [facility] DEPARTMENT OF [address] [place] [address] PATHOLOGY AND GENOMIC MEDICINE * Urine culture (12/30/2017 2:35 AM) Urine culture isolate Gram positive arya [facility] DEPARTMENT OF <10-1 cfu/ml PATHOLOGY AND (A) GENOMIC MEDICINE Comment: Specimen Information Specimen Source: Urine Specimen Site: Clean catch Specimen Urine Performing Organization Address City/[facility]/Zipcode Phone Number [facility] DEPARTMENT OF [address] [place] [address] PATHOLOGY AND GENOMIC MEDICINE * XR Chest [...] noted. No acute osseous abnormalities are visualized. [facility]-[id number] Procedure Note Interface, Radiology Results Incoming - 12/30/2017 12:37 AM WIRE TAPER EXAMINATION: XR CHEST 1 VW PORTABLE CLINICAL [...] noted. No acute osseous abnormalities are visualized. [facility]-[id number] Performing Organization Address [facility]/Zipcode Phone Number [facility] [address] [place] [address] * Blood culture, aerobic & anaerobic (12/30/2017 12:22 AM) Only the most recent of 2 results within the time period is included. Blood culture isolate No growth after 5 days of [facility] DEPARTMENT OF incubation. PATHOLOGY AND Comment: GENOMIC MEDICINE Specimen Information Specimen Source: Blood Specimen Site: Antecubital, left Specimen Blood - Antecubital, left Performing Organization Address City/[facility] Phone Number [facility] DEPARTMENT OF [address] [place] [address] PATHOLOGY AND GENOMIC MEDICINE * ECG 12 lead (12/29/2017 11:33 PM) Ventricular rate 66 [facility] MUSE Atrial rate 66 [facility] MUSE [place] interval 158 [facility] MUSE QRSD interval 84 [facility] MUSE QT interval 462 [facility] MUSE QTC interval 484 [facility] P axis 1 56 [facility] MUSE QRS axis 1 33 [facility] MUSE T wave axis 72 [facility] MUSE EKG impression Normal sinus [facility] MUSE rhythm-Nonspecific T wave abnormality-Prolonged QT-Abnormal ECG-No previous ECGs available- Procedure Note Mohan Reyes MD - 12/29/2017 10:45 PM WIRE TAPER Formatting of this note may be different from the original. Emergency Department Provider Note Location: [facility] ED Patient ID: José Luis Giles is [...] [DF] Mohan Reyes MD [EC] Jeannine [place] [facility] Number of Diagnoses or Management Options Acute [...] Range Ventricular rate 66 Atrial rate 66 [place] interval 158 QRSD interval 84 QT interval [...] noted. No acute osseous abnormalities are visualized. [facility]-[id number] Ct Head Wo Contrast Result Date: 12/30/2017 [...] no CT evidence for acute intracranial abnormality. [facility]-[id number] Mri Brain Wo Contrast Result Date: 12/30/2017 [...] considered mild in terms of its extent. [id number] Procedures ECG 12 lead Date/Time: 12/29/2017 11:36 PM Performed by: MOHAN REYES Authorized by: MOHAN REYES ECG reviewed by ED Physician in the absence of a staffing analyst: yes Interpretation: Interpretation: normal Rate: ECG rate: [...] [place] 12/30/17 0100 Mohan Reyes MD 12/30/17 3970 Performing Organization Address City/[facility] Phone Number [facility] [address] [place] [address] * Partial thromboplastin time, activated (12/29/2017 11:26 PM) PTT 26.3 23.0 - 36.0 sec [facility] DEPARTMENT OF Comment: PATHOLOGY AND PTT therapeutic range for GENOMIC MEDICINE unfractionated heparin is 61.0-112.0 seconds which corresponds to Anti-Xa 0.3-0.7 U/ml. Specimen Blood Performing Organization Address [facility]/Zipcode Phone Number [address] [place] [address] PATHOLOGY AND GENOMIC MEDICINE * Prothrombin time with INR (12/29/2017 11:26 PM) Prothrombin time 13.1 12.0 - 15.0 sec [facility] DEPARTMENT OF PATHOLOGY AND GENOMIC MEDICINE INR 1.0 [facility] DEPARTMENT OF Comment: PATHOLOGY AND The International Normalized GENOMIC MEDICINE Ratio (INR) is a therapeutic monitoring tool for patients who are stable on oral anticoagulant therapy. An INR of 2.0-3.0 is suggested for deep vein thrombosis/pulmonary embolism. Specimen Blood Performing Organization Address City/State/Zipcode Phone Number [facility] [place] [address] [place] [address] PATHOLOGY AND GENOMIC MEDICINE * CBC with platelet and differential (12/29/2017 11:26 PM) WBC 7.69 4.50 - 11.00 k/uL [facility] DEPARTMENT OF PATHOLOGY AND GENOMIC MEDICINE RBC 4.15 (L) 4.20 - 5.50 m/uL [facility] DEPARTMENT OF PATHOLOGY AND GENOMIC MEDICINE HGB 12.6 12.0 - 16.0 g/dL [facility] DEPARTMENT OF PATHOLOGY AND GENOMIC MEDICINE HCT 38.2 37.0 - 47.0 % [facility] DEPARTMENT OF PATHOLOGY AND GENOMIC MEDICINE MCV 92.0 82.0 - 100.0 fL [facility] DEPARTMENT OF PATHOLOGY AND GENOMIC MEDICINE MCH 30.4 27.0 - 34.0 pg [facility] DEPARTMENT OF PATHOLOGY AND GENOMIC MEDICINE MCHC 33.0 31.0 - 37.0 g/dL [facility] DEPARTMENT OF PATHOLOGY AND GENOMIC MEDICINE RDW - SD 44.7 37.0 - 55.0 fL [facility] DEPARTMENT OF PATHOLOGY AND GENOMIC MEDICINE MPV 13.4 (H) 8.8 - 13.2 fL [facility] DEPARTMENT OF PATHOLOGY AND GENOMIC MEDICINE Platelet count 178 150 - 400 k/uL [facility] DEPARTMENT OF PATHOLOGY AND GENOMIC MEDICINE Nucleated RBC 0.00 /100 WBC [facility] DEPARTMENT OF PATHOLOGY AND GENOMIC MEDICINE Neutrophils 66.5 39.0 - 69.0 % [facility] DEPARTMENT OF PATHOLOGY AND GENOMIC MEDICINE Lymphocytes 21.5 (L) 25.0 - 45.0 % [facility] DEPARTMENT OF PATHOLOGY AND GENOMIC MEDICINE Monocytes 8.8 0.0 - 10.0 % [facility] DEPARTMENT OF PATHOLOGY AND GENOMIC MEDICINE Eosinophils 1.4 0.0 - 5.0 % [facility] DEPARTMENT OF PATHOLOGY AND GENOMIC MEDICINE Basophils 1.0 0.0 - 1.0 % [facility] DEPARTMENT OF PATHOLOGY AND GENOMIC MEDICINE Immature granulocytes 0.8Comment: "Immature 0.0 - 1.0 % [facility] DEPARTMENT OF granulocytes" (promyelocytes, PATHOLOGY AND myelocytes, metamyelocytes) [facility] Specimen Blood Performing Organization Address [facility] Phone Number [address] [address] PATHOLOGY AND GENOMIC MEDICINE * Influenza antigen (12/29/2017 11:26 PM) Influenza antigen Negative for Influenza A/B [facility] DEPARTMENT OF antigen. PATHOLOGY AND Comment: GENOMIC MEDICINE Specimen Information Specimen Source: Nares Specimen Site: Right Specimen Nares - Right Performing Organization Address [facility] Phone Number [address] [place] [address] PATHOLOGY AND GENOMIC MEDICINE * Lipase level (12/29/2017 11:26 PM) Lipase 28 13 - 60 U/L [facility] DEPARTMENT OF PATHOLOGY AND GENOMIC MEDICINE Specimen Plasma specimen Performing Organization Address [facility] Phone Number [address] [place] [address] PATHOLOGY AND [facility] * Comprehensive metabolic panel (12/29/2017 11:26 PM) Sodium 141 135 - 148 mEq/L [facility] DEPARTMENT OF PATHOLOGY AND GENOMIC MEDICINE Potassium 3.4 (L) 3.5 - 5.0 mEq/L [facility] DEPARTMENT OF PATHOLOGY AND GENOMIC MEDICINE Chloride 99 98 - 112 mEq/L [facility] DEPARTMENT OF PATHOLOGY AND GENOMIC MEDICINE CO2 21 (L) 24 - 31 mEq/L [facility] DEPARTMENT OF PATHOLOGY AND GENOMIC MEDICINE Anion gap 21 (H) 7 - 15 mEq/L [facility] DEPARTMENT OF Comment: PATHOLOGY AND Starting from January [facility] , anion gap calculation no longer incorporates potassium. Please note the change. BUN 34 (H) 8 - 23 mg/dL [facility] DEPARTMENT OF PATHOLOGY AND GENOMIC MEDICINE Creatinine 2.3 (H) 0.5 - 0.9 mg/dL [facility] DEPARTMENT OF PATHOLOGY AND GENOMIC MEDICINE Glucose 229 (H) 65 - 99 mg/dL [facility] DEPARTMENT OF PATHOLOGY AND GENOMIC MEDICINE Calcium 9.9 8.8 - 10.2 mg/dL [facility] DEPARTMENT OF PATHOLOGY AND GENOMIC MEDICINE Protein 6.9 6.3 - 8.3 g/dL [facility] DEPARTMENT OF Comment: PATHOLOGY AND GENOMIC MEDICINE 4.6-7.0 g/dL 1 week 4.4-7.6 g/dL 7 months-1year 5.1-7.3 g/dL 1-2 years5.6-7 .5 g/dL >3 years6.0-8 .0 g/dL 18-150 6.3-8.3 g/dL Albumin 4.4 3.5 - 5.0 g/dL [facility] DEPARTMENT OF PATHOLOGY AND GENOMIC MEDICINE A/G ratio 1.8 0.7 - 3.8 [facility] DEPARTMENT OF PATHOLOGY AND GENOMIC MEDICINE Alkaline phosphatase 98 35 - 104 U/L [facility] DEPARTMENT OF PATHOLOGY AND GENOMIC MEDICINE AST 42 (H) 10 - 35 U/L [facility] DEPARTMENT OF PATHOLOGY AND GENOMIC MEDICINE ALT 24 5 - 50 U/L [facility] DEPARTMENT OF PATHOLOGY AND GENOMIC MEDICINE Total bilirubin 0.6 0.0 - 1.2 mg/dL [facility] DEPARTMENT OF PATHOLOGY AND GENOMIC MEDICINE Specimen Plasma specimen Performing Organization Address City/State/Zipcode Phone Number [address] [place] [address] PATHOLOGY AND GENOMIC MEDICINE * CRITICAL CARE [...]
--- OUTSIDE RECORDS SUMMARY | 2018-08-16 10:58 | XMS REPORT | Clinical Summary ---
Author Author [facility] Organization [facility] Address Unknown Phone Unavailable Care Team Providers Care Dump Worker Name Role Phone Ambika Lacey MD PCP [...] standing, initial encounter 05/02/2018 Patient Quality Steph Huggisn, JEANE Outreach 04/27/2018 Patient Quality Mary Hahn, GORGE Outreach 04/13/2018 Emergency Emergency Medicine Benedict Hartman, [employer]-C Acute pain of right knee Elian Valenzuela (Primary Dx); MD Joel Groin strain, right, initial encounter 03/09/2018 Telephone Neurology Devon Arguelles MA 02/18/2018 Office Visit Neurology Meghna Marcus MD Advanced dementia (Primary Dx); Mood disorder; Orthostatic hypotension; Fall, sequela 02/18/2018 Orders Only Neurology Meghna Marcus MD 12/31/2017 Patient Quality Lizy Cazares, JEANE Outreach 12/30/2017 Procedure Pass General Surgery 12/29/2017 [facility] General Surgery Mohan Reyes MD Acute [...] Routine 12/31/2017 Results for this 11:54 AM [employer] procedure are in the results section. POC GLUCOSE Routine 12/31/2017 Results for this 5:35 AM [employer] procedure are in the results section. ZZESTIMATED GFR Routine 12/31/2017 Results for this 4:35 AM [employer] procedure are in the results section. BASIC METABOLIC PANEL Routine 12/31/2017 Results for this 4:35 AM [employer] procedure are in the results section. POC GLUCOSE Routine 12/30/2017 Results for this 9:01 PM [employer] procedure are in the results section. POC GLUCOSE Routine 12/30/2017 Results for this 5:17 PM [employer] procedure are in the results section. US CAROTID DUPLEX Routine 12/30/2017 Results for this BILATERAL 10:30 AM [employer] procedure are in the results section. MRI BRAIN WO CONTRAST STAT 12/30/2017 Results for this 10:02 AM [employer] procedure are in the results section. THYROID STIMULATING Routine 12/30/2017 Results for this HORMONE 4:09 AM [employer] procedure are in the results section. SEDIMENTATION RATE Routine 12/30/2017 Results for this 4:09 AM [employer] procedure are in the results section. LIPID PANEL Routine 12/30/2017 Results for this 4:09 AM [employer] procedure are in the results section. HEMOGLOBIN A1C Routine 12/30/2017 Results for this 4:09 AM [employer] procedure are in the results section. TROPONIN Timed 12/30/2017 Results for this 4:09 AM [employer] procedure are in the results section. ZZESTIMATED GFR Routine 12/30/2017 Results for this 4:08 AM [employer] procedure are in the results section. BASIC METABOLIC PANEL Routine 12/30/2017 Results for this 4:08 AM [employer] procedure are in the results section. LACTIC ACID LEVEL, SEPSIS Timed 12/30/2017 Results for this - NOW AND REPEAT 2X EVERY 4:08 AM [employer] procedure are in the 3 HOURS results section. URINALYSIS SCREEN AND STAT 12/30/2017 Results for this MICROSCOPY, WITH REFLEX 2:35 AM [employer] procedure are in the TO CULTURE results section. GRAM STAIN STAT 12/30/2017 Results for this 2:35 AM [employer] procedure are in the results section. URINE CULTURE STAT 12/30/2017 Results for this 2:35 AM [employer] procedure are in the results section. CT HEAD WO CONTRAST STAT 12/30/2017 Results for this 12:46 AM [employer] procedure are in the results section. XR CHEST 1 VW PORTABLE STAT 12/30/2017 Results for this 12:30 AM [employer] procedure are in the results section. BLOOD CULTURE, AEROBIC & Routine 12/30/2017 Results for this ANAEROBIC 12:22 AM [employer] procedure are in the results section. BLOOD CULTURE, AEROBIC & Routine 12/30/2017 Results for this ANAEROBIC 12:15 AM [employer] procedure are in the results section. ECG 12-LEAD STAT 12/29/2017 Results for this 11:33 PM [employer] procedure are in the results section. ZZESTIMATED GFR STAT 12/29/2017 Results for this 11:26 PM [employer] procedure are in the results section. LIPASE LEVEL STAT 12/29/2017 Results for this 11:26 PM [employer] procedure are in the results section. LACTIC ACID LEVEL, SEPSIS STAT 12/29/2017 Results for this - NOW AND REPEAT 2X EVERY 11:26 PM [employer] procedure are in the 3 HOURS results section. PARTIAL THROMBOPLASTIN STAT 12/29/2017 Results for this TIME (PTT) 11:26 PM [employer] procedure are in the results section. PROTHROMBIN TIME WITH INR STAT 12/29/2017 Results for this 11:26 PM [employer] procedure are in the results section. TROPONIN STAT 12/29/2017 Results for this 11:26 PM [employer] procedure are in the results section. COMPREHENSIVE METABOLIC STAT 12/29/2017 Results for this PANEL 11:26 PM [employer] procedure are in the results section. HC COMPLETE BLD COUNT STAT 12/29/2017 Results for this W/AUTO DIFF 11:26 PM [employer] procedure are in the results section. INFLUENZA ANTIGEN Routine 12/29/2017 Results for this 11:26 PM [employer] procedure are in the results section. GA CRITICAL CARE, E/M Routine 12/29/2017 Results for this 30-74 MINUTES 10:45 PM [employer] procedure are in the results section. POC GLUCOSE Routine 12/29/2017 Results for this 10:23 PM [employer] procedure are in the results section. after [...] left parotid gland. No evidence of fracture. [id number] Procedure Note Hm Interface, Radiology Results Incoming [...] left parotid gland. No evidence of fracture. [id number] Performing Organization Address City/State/Zipcode Phone Number [facility] [address] [place] [address] * CT Head Wo Contrast (05/24/2018 8:32 AM) Only the most recent of 2 results within the time period is included. Narrative Performed At EXAMINATION:CT HEAD WO CONTRAST RADIANT CLINICAL HISTORY:Head [id number] clinical riskinitial exam, fall from standingleft temporal [...] hematoma formation. No evidence of underlying fracture. [id number] Procedure Note Interface, Radiology Results Incoming - [...] hematoma formation. No evidence of underlying fracture. [id number] Performing Organization Address City/State/Zipcode Phone Number [facility] [address] [place] [address] * XR Knee 4+ Vw Right (04/13/2018 [...] No joint effusion. Atherosclerotic vascular calcifications present. [facility]-[id number] Procedure Note Hm Interface, Radiology Results Incoming [...] No joint effusion. Atherosclerotic vascular calcifications present. [facility]-[id number] Performing Organization Address [facility] Phone Number [facility] [address] [place] [address] * Thyroperoxidase antibody (02/18/2018 12:30 PM) Thyroperoxidase Ab 9 (H) <9 IU/mL [facility] II Other Results Text Performing Organization Information: Site ID: [id number] Name: [facility] Address: [address] [place] [phone] Director: Dr. Patricio Hampton Performing Organization Address [facility] Phone Number [facility] [employer] [address] [address] II * T3 (02/18/2018 12:30 PM) T3 73 (L) 76 - 181 ng/dL [employer] [place] Other Results Text Performing Organization Information: Site ID: [id number] Name: [facility] Address: [address] [place] [phone] Director: Neetu Lai Performing Organization Address [facility] Phone Number [facility] [address] [address] * Thyroid stimulating hormone (02/18/2018 12:30 PM) Only the most recent of 2 results within the time period is included. TSH 5.86 (H) 0.40 - 4.50 mIU/L [employer] [place] Other Results Text Performing Organization Information: Site ID: [id number] Name: [facility] Address: [address] [place] [address] Director: Neetu Lai Performing Organization Address [facility] Phone Number [place] [place] [address] * T4, free (02/18/2018 12:30 PM) T4, free 2.0 (H) 0.8 - 1.8 ng/dL [employer] [place] Other Results Text Performing Organization Information: Site ID: CHIO Name: [facility] Address: [address] [place], [place] [id number] Director: Neetu Lai Performing Organization Address [facility] [place] [address] * Vitamin B12 level (02/18/2018 12:30 PM) Vitamin B12 779 200 - 1,100 pg/mL [employer] [place] Other Results Text Performing Organization Information: Site ID: [id number] Name: [facility] Address: [address] [place] [address] Director: Neetu Lai Performing Organization Address [facility] [place] [address] * POC glucose (12/31/2017 11:54 AM) Only the most recent of 5 results within the time period is included. POC glucose 110 (H) 65 - 99 mg/dL [facility] DEPARTMENT OF Comment: PATHOLOGY AND Meter ID: [id number] GENOMIC MEDICINE Intervention Nurse: Jet Staley Performing Organization Address City/[facility] Phone Number [facility] DEPARTMENT [address] [place] [address] PATHOLOGY AND GENOMIC MEDICINE * Estimated GFR (12/31/2017 4:35 AM) Only the most recent of 3 results within the time period is included. GFR Non Af Amer 48 (A) mL/min/1.73 m2 [facility] DEPARTMENT PATHOLOGY [facility] GFR Af Amer 59 (A) mL/min/1.73 m2 [facility] DEPARTMENT OF Comment: PATHOLOGY AND Chronic kidney disease: <60 [facility] mL/min/1.73m2 Kidney failure: <15 mL/min/1.73m2 The estimated [...] Americans. Specimen Plasma specimen Performing Organization Address [facility] Phone Number [address] [place] [id number] [facility] * Basic metabolic panel (12/31/2017 4:35 AM) Only the most recent of 2 results within the time period is included. Sodium 143 135 - 148 mEq/L [facility] PATHOLOGY [facility] Potassium 3.2 (L) 3.5 - 5.0 mEq/L [facility] PATHOLOGY [facility] Chloride 102 98 - 112 mEq/L [facility] PATHOLOGY [facility] [employer] [facility] CO2 26 24 - 31 mEq/L [facility] PATHOLOGY [facility] [employer] [facility] Anion gap 15 7 - 15 mEq/L [facility] DEPARTMENT OF Comment: PATHOLOGY AND Starting from January [facility] , anion gap calculation no longer incorporates potassium. Please note the change. BUN 18 8 - 23 mg/dL [facility] DEPARTMENT PATHOLOGY AND [facility] Creatinine 1.1 (H) 0.5 - 0.9 mg/dL [facility] PATHOLOGY AND [employer] [facility] Glucose 142 (H) 65 - 99 mg/dL [facility] PATHOLOGY [facility] [employer] [facility] Calcium 9.7 8.8 - 10.2 mg/dL [facility] [employer] [facility] Specimen Plasma specimen Performing Organization Address City/[facility] Phone Number [address] [place] [address] [facility] * PV carotid duplex (12/30/2017 10:30 AM) [...] Address City/State/Zipcode Phone Number [facility] [address] [place] [address] * MRI Brain Wo Contrast (12/30/2017 10:02 AM) Narrative Performed At EXAMINATION: MRI BRAIN WO [facility] CLINICAL HISTORY: weakness COMPARISON:Brain CT dated December [...] considered mild in terms of its extent. [id number] Procedure Note Interface, Radiology Results Incoming - 12/30/2017 10:12 AM [employer] EXAMINATION: MRI BRAIN WO CONTRAST CLINICAL HISTORY: [...] considered mild in terms of its extent. [facility]-[id number] Performing Organization Address [facility]/Zipcode Phone Number [facility] [address] [place] [address] * Troponin (12/30/2017 4:09 AM) Only the most recent of 2 results within the time period is included. Troponin <0.300 0.000 - 0.300 ng/mL [facility] DEPARTMENT OF Comment: PATHOLOGY AND 0.30 - 1.49 GENOMIC MEDICINE ng/mlMay indicate increased risk of acute coronary syndrome. >=1.5 ng/ml Consistent with acute myocardial infarction. The diagnostic value of a single normal or non-diagnostic result is questionable.Serial samples at 2-6 hour intervals are required to rule out acute myocardial injury. Specimen Plasma specimen Performing Organization Address [facility] Phone Number [address] [place] [phone] PATHOLOGY AND GENOMIC MEDICINE * Sedimentation rate (12/30/2017 4:09 AM) Sedimentation rate 6 0 - 20 mm/hr [facility] DEPARTMENT OF PATHOLOGY AND GENOMIC MEDICINE Specimen Blood Performing Organization Address [facility] Phone Number [address] [place] [address] PATHOLOGY AND GENOMIC MEDICINE * Hemoglobin A1c (12/30/2017 4:09 AM) Hemoglobin A1C 6.2 (H) 4.0 - 6.0 % [facility] DEPARTMENT OF Comment: PATHOLOGY AND GENOMIC MEDICINE Less than 6% - Goal of therapy for Type II Diabetes Less than 7%-Goal of therapy for Type I Diabetes Less than 8%-Accepta ble control for Type I or Type II Diabetes Greater than 8%-Unacceptabl e control; action indicated. ([id number]) Specimen Blood Performing Organization Address [facility]/Zipcode Phone Number [facility] [place] [id number] [place] [address] [place] [address] PATHOLOGY AND GENOMIC MEDICINE * Lipid panel (12/30/2017 4:09 AM) Cholesterol 177 <200 mg/dL [facility] DEPARTMENT OF PATHOLOGY AND GENOMIC MEDICINE Triglycerides 239 (H) <150 mg/dL [facility] DEPARTMENT OF PATHOLOGY AND GENOMIC MEDICINE HDL cholesterol 35 (L) >40 mg/dL [facility] DEPARTMENT OF PATHOLOGY AND GENOMIC MEDICINE LDL cholesterol 119 (H)Comment: Result <100 mg/dL [facility] DEPARTMENT obtained by direct LDL PATHOLOGY AND measurement GENOMIC MEDICINE Lipid panel SeeBelow [facility] DEPARTMENT OF interpretation Comment: PATHOLOGY [...] mg/dL) Specimen Plasma specimen Performing Organization Address [facility]/Zipcode Phone Number [facility] [place] [address]Chase[place] [address] PATHOLOGY AND GENOMIC MEDICINE * Lactic acid level, SEPSIS - Now and repeat 2x every 3 hours (12/30/2017 4:08 AM) Only the most recent of 2 results within the time period is included. Lactic acid 2.2 0.5 - 2.2 mmol/L [facility] DEPARTMENT OF PATHOLOGY AND GENOMIC MEDICINE Specimen Plasma specimen Performing Organization Address [facility] Phone Number [address] [place] [address] PATHOLOGY AND GENOMIC MEDICINE * Urinalysis screen and microscopy, with reflex to culture (12/30/2017 2:35 AM) Specimen site Clean catch [facility] DEPARTMENT OF PATHOLOGY AND GENOMIC MEDICINE Color, UA Straw [facility] DEPARTMENT OF PATHOLOGY AND GENOMIC MEDICINE Appearance, UA Clear [facility] DEPARTMENT OF PATHOLOGY AND GENOMIC MEDICINE Specific gravity, UA 1.008 1.001 - 1.035 [facility] DEPARTMENT OF PATHOLOGY AND GENOMIC MEDICINE pH, UA 5.0 5.0 - 8.5 [facility] DEPARTMENT OF PATHOLOGY AND GENOMIC MEDICINE Protein, UA Negative Negative [facility] DEPARTMENT OF PATHOLOGY AND GENOMIC MEDICINE Glucose, UA Negative Negative [facility] DEPARTMENT OF PATHOLOGY AND GENOMIC MEDICINE Ketones, UA Negative Negative [facility] DEPARTMENT OF PATHOLOGY AND GENOMIC MEDICINE Bilirubin, UA Negative Negative [facility] DEPARTMENT OF PATHOLOGY AND GENOMIC MEDICINE Blood, UA Negative Negative [facility] DEPARTMENT OF PATHOLOGY AND GENOMIC MEDICINE Nitrite, UA Negative Negative [facility] DEPARTMENT OF PATHOLOGY AND GENOMIC MEDICINE Urobilinogen, UA Negative <2.0 [facility] DEPARTMENT OF PATHOLOGY AND GENOMIC MEDICINE Leukocyte esterase, UA Moderate (A) Negative [facility] DEPARTMENT OF PATHOLOGY AND GENOMIC MEDICINE Round epithelial cells, Few 0 - 1 /HPF [facility] DEPARTMENT OF UA PATHOLOGY AND GENOMIC MEDICINE WBC, UA 21-40 (H) 0 - 4 /HPF [facility] DEPARTMENT OF PATHOLOGY AND GENOMIC MEDICINE RBC, UA 0-5 0 - 2 /HPF [facility] DEPARTMENT OF PATHOLOGY AND GENOMIC MEDICINE Bacteria, UA Trace None seen [facility] DEPARTMENT OF PATHOLOGY AND GENOMIC MEDICINE Yeast, UA None seen [facility] DEPARTMENT OF PATHOLOGY AND GENOMIC MEDICINE Yeast with pseudohyphae, None seen [facility] UA PATHOLOGY AND GENOMIC MEDICINE Hyaline casts, UA 3-5 /LPF [facility] DEPARTMENT OF PATHOLOGY AND GENOMIC MEDICINE Specimen Urine Performing Organization Address [facility] Phone Number [address] [place] [address] PATHOLOGY AND GENOMIC MEDICINE * Gram stain (12/30/2017 2:35 AM) Gram stain result Moderate WBC's [facility] DEPARTMENT OF Occasional Gram positive rods PATHOLOGY AND Comment: GENOMIC MEDICINE Specimen Information Specimen Source: Urine Specimen Site: Clean catch Specimen Urine Performing Organization Address City/State/Zipcode Phone Number [facility] DEPARTMENT OF [address] [place] [address] PATHOLOGY AND GENOMIC MEDICINE * Urine culture (12/30/2017 2:35 AM) Urine culture isolate Gram positive arya [facility] DEPARTMENT OF <10-1 cfu/ml PATHOLOGY AND (A) GENOMIC MEDICINE Comment: Specimen Information Specimen Source: Urine Specimen Site: Clean catch Specimen Urine Performing Organization Address City/[facility]/Zipcode Phone Number [facility] DEPARTMENT OF [address] [place] [address] PATHOLOGY AND GENOMIC MEDICINE * XR Chest [...] noted. No acute osseous abnormalities are visualized. [facility]-[id number] Procedure Note Interface, Radiology Results Incoming - 12/30/2017 12:37 AM [employer] EXAMINATION: XR CHEST 1 VW PORTABLE CLINICAL [...] noted. No acute osseous abnormalities are visualized. [facility]-[id number] Performing Organization Address [facility]/Zipcode Phone Number [facility] [address] [place] [address] * Blood culture, aerobic & anaerobic (12/30/2017 12:22 AM) Only the most recent of 2 results within the time period is included. Blood culture isolate No growth after 5 days of [facility] DEPARTMENT OF incubation. PATHOLOGY AND Comment: GENOMIC MEDICINE Specimen Information Specimen Source: Blood Specimen Site: Antecubital, left Specimen Blood - Antecubital, left Performing Organization Address City/[facility] Phone Number [facility] DEPARTMENT OF [address] [place] [address] PATHOLOGY AND GENOMIC MEDICINE * ECG 12 lead (12/29/2017 11:33 PM) Ventricular rate 66 [facility] MUSE Atrial rate 66 [facility] MUSE GA interval 158 [facility] M[facility] QRSD interval 84 [facility] M[facility] QT interval 462 [facility] QTC interval 484 [facility] P axis 1 56 [facility] MUSE QRS axis 1 33 [facility] MUSE T wave axis 72 [facility] MUSE EKG impression Normal sinus [facility] MUSE rhythm-Nonspecific T wave abnormality-Prolonged QT-Abnormal ECG-No previous ECGs available- Procedure Note Mohan Reyes MD - 12/29/2017 10:45 PM [employer] Formatting of this note may be different from the original. Emergency Department Provider Note Location: [facility] ED Patient ID: José Luis [...] [DF] Mohan Reyes MD [EC] Jeannine [place] [facility] Number of Diagnoses or Management Options [...] Range Ventricular rate 66 Atrial rate 66 GA interval 158 QRSD interval 84 QT interval [...] noted. No acute osseous abnormalities are visualized. [facility]-[id number] Ct Head Wo Contrast Result Date: 12/30/2017 [...] no CT evidence for acute intracranial abnormality. [facility]-[id number] Mri Brain Wo Contrast Result Date: 12/30/2017 [...] considered mild in terms of its extent. [id number] Procedures ECG 12 lead Date/Time: 12/29/2017 11:36 PM Performed by: MOHAN REYES Authorized by: MOHAN REYES ECG reviewed by ED Physician in the absence of a lay ups assembler: yes Interpretation: Interpretation: normal Rate: ECG rate: [...] [place] 12/30/17 0100 Mohan Reyes MD 12/30/17 [id number] Performing Organization Address City/[facility] Phone Number [facility] [address] [place] [address] * Partial thromboplastin time, activated (12/29/2017 11:26 PM) PTT 26.3 23.0 - 36.0 sec [facility] DEPARTMENT OF Comment: PATHOLOGY AND PTT therapeutic range for GENOMIC MEDICINE unfractionated heparin is 61.0-112.0 seconds which corresponds to Anti-Xa 0.3-0.7 U/ml. Specimen Blood Performing Organization Address [facility]/Zipcode Phone Number [address] [place] [address] PATHOLOGY AND GENOMIC MEDICINE * Prothrombin time with INR (12/29/2017 11:26 PM) Prothrombin time 13.1 12.0 - 15.0 sec [facility] DEPARTMENT OF PATHOLOGY AND GENOMIC MEDICINE INR 1.0 [facility] DEPARTMENT OF Comment: PATHOLOGY AND The International Normalized GENOMIC MEDICINE Ratio (INR) is a therapeutic monitoring tool for patients who are stable on oral anticoagulant therapy. An INR of 2.0-3.0 is suggested for deep vein thrombosis/pulmonary embolism. Specimen Blood Performing Organization Address City/State/Zipcode Phone Number [facility] [place] [address] [place] [address] PATHOLOGY AND GENOMIC MEDICINE * CBC with platelet and differential (12/29/2017 11:26 PM) WBC 7.69 4.50 - 11.00 k/uL [facility] DEPARTMENT OF PATHOLOGY AND GENOMIC MEDICINE RBC 4.15 (L) 4.20 - 5.50 m/uL [facility] DEPARTMENT OF PATHOLOGY AND GENOMIC MEDICINE HGB 12.6 12.0 - 16.0 g/dL [facility] DEPARTMENT OF PATHOLOGY AND GENOMIC MEDICINE HCT 38.2 37.0 - 47.0 % [facility] DEPARTMENT OF PATHOLOGY AND GENOMIC MEDICINE MCV 92.0 82.0 - 100.0 fL [facility] DEPARTMENT OF PATHOLOGY AND GENOMIC MEDICINE MCH 30.4 27.0 - 34.0 pg [facility] DEPARTMENT OF PATHOLOGY AND GENOMIC MEDICINE MCHC 33.0 31.0 - 37.0 g/dL [facility] DEPARTMENT OF PATHOLOGY AND GENOMIC MEDICINE RDW - SD 44.7 37.0 - 55.0 fL [facility] DEPARTMENT OF PATHOLOGY AND GENOMIC MEDICINE MPV 13.4 (H) 8.8 - 13.2 fL [facility] DEPARTMENT OF PATHOLOGY AND GENOMIC MEDICINE Platelet count 178 150 - 400 k/uL [facility] DEPARTMENT OF PATHOLOGY AND GENOMIC MEDICINE Nucleated RBC 0.00 /100 WBC [facility] DEPARTMENT OF PATHOLOGY AND GENOMIC MEDICINE Neutrophils 66.5 39.0 - 69.0 % [facility] DEPARTMENT OF PATHOLOGY AND GENOMIC MEDICINE Lymphocytes 21.5 (L) 25.0 - 45.0 % [facility] DEPARTMENT OF PATHOLOGY AND GENOMIC MEDICINE Monocytes 8.8 0.0 - 10.0 % [facility] DEPARTMENT OF PATHOLOGY AND GENOMIC MEDICINE Eosinophils 1.4 0.0 - 5.0 % [facility] DEPARTMENT OF PATHOLOGY AND GENOMIC MEDICINE Basophils 1.0 0.0 - 1.0 % [facility] DEPARTMENT OF PATHOLOGY AND GENOMIC MEDICINE Immature granulocytes 0.8Comment: "Immature 0.0 - 1.0 % [facility] DEPARTMENT OF granulocytes" (promyelocytes, PATHOLOGY AND myelocytes, metamyelocytes) [facility] Specimen Blood Performing Organization Address [facility] Phone Number [address] [address] PATHOLOGY AND GENOMIC MEDICINE * Influenza antigen (12/29/2017 11:26 PM) Influenza antigen Negative for Influenza A/B [facility] DEPARTMENT OF antigen. PATHOLOGY AND Comment: GENOMIC MEDICINE Specimen Information Specimen Source: Nares Specimen Site: Right Specimen Nares - Right Performing Organization Address [facility] Phone Number [address] [place] [address] PATHOLOGY AND GENOMIC MEDICINE * Lipase level (12/29/2017 11:26 PM) Lipase 28 13 - 60 U/L [facility] DEPARTMENT OF PATHOLOGY AND GENOMIC MEDICINE Specimen Plasma specimen Performing Organization Address [facility] Phone Number [address] [place] [address] PATHOLOGY AND [facility] * Comprehensive metabolic panel (12/29/2017 11:26 PM) Sodium 141 135 - 148 mEq/L [facility] DEPARTMENT OF PATHOLOGY AND GENOMIC MEDICINE Potassium 3.4 (L) 3.5 - 5.0 mEq/L [facility] DEPARTMENT OF PATHOLOGY AND GENOMIC MEDICINE Chloride 99 98 - 112 mEq/L [facility] DEPARTMENT OF PATHOLOGY AND GENOMIC MEDICINE CO2 21 (L) 24 - 31 mEq/L [facility] DEPARTMENT OF PATHOLOGY AND GENOMIC MEDICINE Anion gap 21 (H) 7 - 15 mEq/L [facility] DEPARTMENT OF Comment: PATHOLOGY AND Starting from January [facility] , anion gap calculation no longer incorporates potassium. Please note the change. BUN 34 (H) 8 - 23 mg/dL [facility] DEPARTMENT OF PATHOLOGY AND GENOMIC MEDICINE Creatinine 2.3 (H) 0.5 - 0.9 mg/dL [facility] DEPARTMENT OF PATHOLOGY AND GENOMIC MEDICINE Glucose 229 (H) 65 - 99 mg/dL [facility] DEPARTMENT OF PATHOLOGY AND GENOMIC MEDICINE Calcium 9.9 8.8 - 10.2 mg/dL [facility] DEPARTMENT OF PATHOLOGY AND GENOMIC MEDICINE Protein 6.9 6.3 - 8.3 g/dL [facility] DEPARTMENT OF Comment: PATHOLOGY AND GENOMIC MEDICINE 4.6-7.0 g/dL 1 week 4.4-7.6 g/dL 7 months-1year 5.1-7.3 g/dL 1-2 years5.6-7 .5 g/dL >3 years6.0-8 .0 g/dL 18-150 6.3-8.3 g/dL Albumin 4.4 3.5 - 5.0 g/dL [facility] DEPARTMENT OF PATHOLOGY AND GENOMIC MEDICINE A/G ratio 1.8 0.7 - 3.8 [facility] DEPARTMENT OF PATHOLOGY AND GENOMIC MEDICINE Alkaline phosphatase 98 35 - 104 U/L [facility] DEPARTMENT OF PATHOLOGY AND GENOMIC MEDICINE AST 42 (H) 10 - 35 U/L [facility] DEPARTMENT OF PATHOLOGY AND GENOMIC MEDICINE ALT 24 5 - 50 U/L [facility] DEPARTMENT OF PATHOLOGY AND GENOMIC MEDICINE Total bilirubin 0.6 0.0 - 1.2 mg/dL [facility] DEPARTMENT OF PATHOLOGY AND GENOMIC MEDICINE Specimen Plasma specimen Performing Organization Address City/State/Zipcode Phone Number [address] [place] [address] PATHOLOGY AND GENOMIC MEDICINE * CRITICAL CARE [...]
== END 2018-08-10 19:15 | DRG 682 ==
LOC: ER 12:55 → ERHOLD 16:02 → UNDOADMOB 16:36 → MED/SURG 08-05 01:48 → OBSVTOIN 08-05 08:21 → MED/SURG3 08-08 10:58
PROVIDERS: ADMIT Internal Medicine; ATTEND Internal Medicine
DX: N17.9 Acute kidney failure, unspecified (principal); G93.41 Metabolic encephalopathy; N39.0 Urinary tract infection, site not specified; F02.81 Dementia in other diseases classified elsewhere, unspecified severity, with behavioral disturbance; E87.2 Acidosis; R55 Syncope and collapse; G30.1 Alzheimer's disease with late onset; E11.42 Type 2 diabetes mellitus with diabetic polyneuropathy; E78.5 Hyperlipidemia, unspecified; E03.9 Hypothyroidism, unspecified; E87.6 Hypokalemia; R19.7 Diarrhea, unspecified; B96.20 Unspecified Escherichia coli [E. coli] as the cause of diseases classified elsewhere; M54.2 Cervicalgia
CPT/HCPCS: 36415; 70450; 71045; 72125; 80048; 80053; 80061; 81001; 82550; 82553; 82948; 83036; 83690; 83735; 84132; 84443; 84484; 85025; 85610; 85730; 87086; 87186; 93005; 93306; 93880; 96361; 97139; 99284; G0378; J1956; J3480; J7030

== ENCOUNTER 2018-10-22 07:19 | Emergency (ER) | payer MEDICARE, OTHER ==
[~2018-10-22] VITALS: Ht 170.2 cm; Wt 73.9 kg
[~2018-10-22 07:19] MED LIST changes: +JANUMET 50-1,01 EACH PO; +PANTOPRAZOLE SO40 MG PO
--- OUTSIDE RECORDS SUMMARY | 2018-10-22 07:23 | XMS REPORT | Clinical Summary ---
Author Author [facility] Organization [facility] Address Unknown Phone Unavailable Care Team Providers Care Student Truck Driver Name Role Phone Ambika Lacey MD PCP Allergies Comments Active Allergy Reactions Severity Noted Date Pt doesn't remember Ramipril Itching High 02/07/2016 Occurred with taking Vantin Cephalosporins Itching 02/04/2017 Codeine Hives, 02/07/2016 Itching Hydrocodone Itching High 02/07/2016 Penicillin Itching 12/29/2017 Penicillins Hives, 02/07/2016 Itching Sucralfate 11/16/2011 Medications End Date Status Medication Sig Dispensed Refills Start Date Active gabapentin (NEURONTIN) Take 300 mg 0 300 mg capsule by mouth once. Active methocarbamol (ROBAXIN) Take 750 mg 0 750 MG tablet by mouth 3 (three) times a day. Active folic acid (FOLVITE) 1 MG Take 1 mg by 0 tablet mouth daily. Active LORAZepam (ATIVAN) 0.5 MG Take 0.5 mg 0 tablet by mouth every 6 (six) hours as needed for anxiety. Active QUEtiapine (SEROquel) 25 Take 25 mg by 0 MG tablet mouth 2 (two) times a day. Active memantine (NAMENDA) 10 MG Take 10 mg by 0 tablet mouth 2 (two) times a day. Active pantoprazole (PROTONIX) Take 40 mg by 0 40 MG EC tablet mouth daily. Active sitaGLIPtin-metformin Take 1 tablet 0 (JANUMET) 50-1,000 mg per by mouth tablet once. Active levothyroxine (SYNTHROID, Take 150 mcg 0 LEVOXYL) 150 mcg tablet by mouth every morning. Active buPROPion XL (WELLBUTRIN Take 300 mg 0 XL) 300 MG 24 hr tablet by mouth daily. Active mirabegron (MYRBETIQ) 50 Take 50 mg by 0 mg tablet extended mouth daily. release 24 hr Active pravastatin (PRAVACHOL) Take 40 mg by 0 40 MG tablet mouth daily. Active PARoxetine (PAXIL) 20 MG Take 20 mg by 0 tablet mouth every morning. Active amLODIPine (NORVASC) 5 mg Take 5 mg by 0 tablet mouth daily. Active donepezil (ARICEPT) 10 MG 10 mg 2 (two) 0 tablet times a day. Active blood sugar diagnostic 0 strips (ACCU-CHEK SMARTVIEW TEST STRIP) strip test strips Active anastrozole (ARIMIDEX) 1 Take 1 mg by 0 mg chemo tablet mouth daily. Active potassium gluconate 595 Take by 0 mg (99 mg) tablet mouth. Active ranitidine (ZANTAC) 300 Take 300 mg 0 MG tablet by mouth nightly. Active clopidogrel (PLAVIX) 75 Take 75 mg by 0 mg tablet mouth daily. 02/18/2018 Discontinued amLODIPine (NORVASC) 5 MG Take 1 tablet 0 tablet by mouth. 6 02/18/2018 Discontinued pantoprazole (PROTONIX) Take 1 tablet 0 40 MG EC tablet by mouth. 6 02/18/2018 Discontinued clopidogrel (PLAVIX) 75 TAKE 1 TABLET 0 mg tablet BY MOUTH 6 EVERY DAY 02/18/2018 Discontinued pravastatin (PRAVACHOL) Take 1 tablet 0 40 MG tablet by mouth. 6 02/18/2018 Discontinued busPIRone (BUSPAR) 10 MG TAKE 1 TABLET 0 tablet (10 MG TOTAL) 6 BY MOUTH TWICE DAILY. 02/18/2018 Discontinued memantine (NAMENDA) 10 MG Take 5 mg by 0 tablet mouth. 6 02/18/2018 Discontinued PARoxetine (PAXIL) 20 MG Take 1 tablet 0 tablet by mouth. 6 02/18/2018 Discontinued omeprazole (PriLOSEC) 40 TAKE 1 3 MG capsule CAPSULE BY 6 MOUTH ONCE A DAY 30 MINUTES BEFORE BREAKFAST 02/18/2018 Discontinued levothyroxine (SYNTHROID) Take 200 mcg 0 200 MCG tablet by mouth. 02/18/2018 Discontinued ranitidine (ZANTAC) 300 Take 1 tablet 0 MG tablet by mouth. 6 02/18/2018 Discontinued sitagliptin-metformin Take 1 tablet 0 (JANUMET XR) 50-1,000 mg by mouth. 6 tablet, ER multiphase 24 hr 12/31/2017 Discontinued magnesium oxide 500 mg Take 500 mg 0 tablet by mouth. 6 02/18/2018 Discontinued mirabegron (MYRBETRIQ) 50 Take 1 tablet 0 mg tablet extended by mouth. 6 release 24 hr 02/18/2018 Discontinued anastrozole (ARIMIDEX) 1 Take 1 mg by 4 mg chemo tablet mouth once 6 daily. 12/31/2017 Discontinued CETIRIZINE HCL (ZYRTEC Take by 0 ORAL) mouth. 01/31/2018 sitaGLIPtin (JANUVIA) 50 Take 1 tablet 30 tablet 0 MG tablet (50 mg total) 8 by mouth daily with breakfast for 30 days. 01/31/2018 metFORMIN XR Take 2 60 tablet 0 (GLUCOPHAGE-XR) 500 mg 24 tablets 8 hr tablet (1,000 mg total) by mouth daily with breakfast for 30 days. 02/18/2018 Discontinued amitriptyline (ELAVIL) 25 Take 25 mg by 0 MG tablet mouth. 02/18/2018 Discontinued buPROPion XL (WELLBUTRIN TAKE 1 TABLET 0 XL) 300 MG 24 hr tablet BY MOUTH IN 7 THE MORNING 02/18/2018 Discontinued cholecalciferol, vitamin Take 400 0 D3, (VITAMIN D3) 2,000 Units by unit tablet mouth. 02/18/2018 Discontinued cyanocobalamin (VITAMIN TAKE 1 TABLET 0 B-12) 1000 MCG tablet BY MOUTH 7 EVERY DAY 02/18/2018 Discontinued donepezil (ARICEPT) 10 MG 0 tablet 8 02/18/2018 Discontinued LORAZepam (ATIVAN) 0.5 MG 0 tablet 2 Active Problems Problem Noted Date Orthostatic hypotension 02/18/2018 Advanced dementia 02/18/2018 Mood disorder 02/18/2018 Fall 02/18/2018 Acute kidney injury 12/30/2017 Encounters Care Team Description Date Type Specialty Mary Hahn OR 06/02/2018 Patient Quality Outreach Hiram Patricia MD Contusion of face, initial encounter (Primary Dx); Fall from standing, initial encounter 05/24/2018 Emergency Emergency Medicine Steph Huggins, JEANE 05/02/2018 Patient Quality Outreach Mary Hahn, OR 04/27/2018 Patient Quality Outreach Benedict Hartman NP-C Vander Meulen, Michael Scott, MD Acute pain of right knee (Primary Dx); Groin strain, right, initial encounter 04/13/2018 Emergency Emergency Medicine Devon Arguelles MA 03/09/2018 Telephone Neurology Meghna Marcus MD Advanced dementia (Primary Dx); Mood disorder; Orthostatic hypotension; Fall, sequela 02/18/2018 Office Visit Neurology Meghna Marcus MD 02/18/2018 Orders Only Neurology Lizy Cazares, JEANE 12/31/2017 Patient Quality Outreach Mohan Reyes MD Al-Lahiq, Maha, MD Acute kidney injury (Primary Dx); Weakness of both lower extremities; Elevated serum lactate dehydrogenase 12/29/2017 Primary [facility] General Surgery - Encounter 12/31/2017 after 10/21/2017 Immunizations Name Dates Previously Given Next Due FLUZONE HIGH-DOSE PF 07/23/2017 Pneumococcal Conjugate 10/18/2017 13-Valent Social History Date Tobacco Use Types Packs/Day Years Used Never Smoker Smokeless Tobacco: Never Used Alcohol Use Drinks/Week oz/Week Comments No Sex Assigned at Date Recorded Not on file Industry Job Start Date Occupation Not on file Not on file Not on file Travel End Travel History Travel Start No recent travel history available. Last Filed Vital Signs Time Taken Vital Sign Reading 05/24/2018 9:26 AM CDT Blood Pressure 143/66 05/24/2018 9:26 AM CDT Pulse 72 05/24/2018 9:26 AM CDT Temperature 36.6 C (97.8 F) 05/24/2018 9:26 AM CDT Respiratory Rate 17 05/24/2018 9:26 AM CDT Oxygen Saturation 98% - Inhaled Oxygen - Concentration 05/24/2018 7:47 AM CDT Weight 72.6 kg (160 lb) 05/24/2018 7:47 AM CDT Height 170.2 cm (5' 7") 05/24/2018 7:47 AM CDT Body Mass Index 25.06 Plan of Treatment Health Maintenance Due Date Last Done Comments SHINGLES VACCINES (1 of 1992 2) PNEUMOCOCCAL 2007 POLYSACCHARIDE VACCINE AGE 65 AND OVER INFLUENZA VACCINE 06/01/2018 07/23/2017 PNEUMOCOCCAL-13 Completed 10/18/2017 Procedures Comments Procedure Name Priority Date/Time Associated Diagnosis CT MAXILLOFACIAL WO STAT 05/24/2018 CONTRAST 8:[address] HEAD WO CONTRAST STAT 05/24/2018 8:32 AM CDT XR KNEE 4+ VW RIGHT STAT 04/13/2018 6:21 PM CDT VITAMIN B12 LEVEL Routine 02/18/2018 12:30 PM CDT THYROID STIMULATING Routine 02/18/2018 HORMONE 12:30 PM CDT T4, FREE Routine 02/18/2018 12:30 PM CDT T3 Routine 02/18/2018 12:30 PM CDT THYROID PEROXIDASE Routine 02/18/2018 ANTIBODY 12:30 PM CDT POC GLUCOSE Routine 12/31/2017 11:54 AM [employer] POC GLUCOSE Routine 12/31/2017 5:35 AM [employer] ZZESTIMATED GFR Routine 12/31/2017 4:35 AM [employer] BASIC METABOLIC PANEL Routine 12/31/2017 4:35 AM [employer] POC GLUCOSE Routine 12/30/2017 9:01 PM [employer] POC GLUCOSE Routine 12/30/2017 5:17 PM [employer] US CAROTID DUPLEX Routine 12/30/2017 BILATERAL 10:30 AM [employer] MRI BRAIN WO CONTRAST STAT 12/30/2017 10:02 AM [employer] THYROID STIMULATING Routine 12/30/2017 HORMONE 4:09 AM [employer] SEDIMENTATION RATE Routine 12/30/2017 4:09 AM [employer] LIPID PANEL Routine 12/30/2017 4:09 AM [employer] HEMOGLOBIN A1C Routine 12/30/2017 4:09 AM [employer] TROPONIN Timed 12/30/2017 4:09 AM [employer] ZZESTIMATED GFR Routine 12/30/2017 4:08 AM [employer] BASIC METABOLIC PANEL Routine 12/30/2017 4:08 AM [employer] LACTIC ACID LEVEL, SEPSIS Timed 12/30/2017 - NOW AND REPEAT 2X EVERY 4:08 AM [employer] 3 HOURS URINALYSIS SCREEN AND STAT 12/30/2017 MICROSCOPY, WITH REFLEX 2:35 AM [employer] TO CULTURE GRAM STAIN STAT 12/30/2017 2:35 AM [employer] URINE CULTURE STAT 12/30/2017 2:[address] HEAD WO CONTRAST STAT 12/30/2017 12:46 AM [employer] XR CHEST 1 VW PORTABLE STAT 12/30/2017 12:30 AM [employer] BLOOD CULTURE, AEROBIC & Routine 12/30/2017 ANAEROBIC 12:22 AM [employer] BLOOD CULTURE, AEROBIC & Routine 12/30/2017 ANAEROBIC 12:15 AM [employer] ECG 12-LEAD STAT 12/29/2017 11:33 PM [employer] ZZESTIMATED GFR STAT 12/29/2017 11:26 PM [employer] LIPASE LEVEL STAT 12/29/2017 11:26 PM [employer] LACTIC ACID LEVEL, SEPSIS STAT 12/29/2017 - NOW AND REPEAT 2X EVERY 11:26 PM [employer] 3 HOURS PARTIAL THROMBOPLASTIN STAT 12/29/2017 TIME (PTT) 11:26 PM [employer] PROTHROMBIN TIME WITH INR STAT 12/29/2017 11:26 PM [employer] TROPONIN STAT 12/29/2017 11:26 PM [employer] COMPREHENSIVE METABOLIC STAT 12/29/2017 PANEL 11:26 PM [employer] HC COMPLETE BLD COUNT STAT 12/29/2017 W/AUTO DIFF 11:26 PM [employer] INFLUENZA ANTIGEN Routine 12/29/2017 11:26 PM [employer] GA CRITICAL CARE, E/M Routine 12/29/2017 30-74 MINUTES 10:45 PM [employer] POC GLUCOSE Routine 12/29/2017 10:23 PM [employer] after 10/21/2017 Results * CT Maxillofacial Wo Contrast (05/24/2018 8:32 AM CDT) Narrative Performed At EXAMINATION: CT MAXILLOFACIAL WO [...] left parotid gland. No evidence of fracture. [id number] Procedure Note Hm Interface, Radiology Results Incoming [...] left parotid gland. No evidence of fracture. [id number] Performing Organization Address City/State/Zipcode Phone Number [facility] [address] [place] [address] * CT Head Wo Contrast (05/24/2018 8:32 AM CDT) Only the most recent of 2 results within the time period is included. Narrative Performed At EXAMINATION:[facility] HEAD [facility]:Head [id number] clinical riskinitial exam, fall from standingleft temporal [...] hematoma formation. No evidence of underlying fracture. [id number] Procedure Note Interface, Radiology Results Incoming - [...] hematoma formation. No evidence of underlying fracture. [id number] Performing Organization Address City/State/Zipcode Phone Number [facility] [address] [place] [address] * XR Knee 4+ Vw Right (04/13/2018 6:21 PM CDT) Narrative Performed At EXAMINATION:XR KNEE 4VW RIGHT [facility] CLINICAL HISTORY:JOINT PAINKNEE COMPARISON:None. IMPRESSION: 4 views of the right knee. There is a hemiarthroplasty in anatomic alignment. There are no hardware fractures or signs of loosening. Vertebral narrowing of the lateral and patellofemoral compartments with marginal osteophytes from osteoarthrosis with mild chondrocalcinosis. No acute fracture or dislocation. No joint effusion. Atherosclerotic vascular calcifications present. [id number] Procedure Note Hm Interface, Radiology Results Incoming [...] No joint effusion. Atherosclerotic vascular calcifications present. [facility]-[id number] Performing Organization Address [facility]/Zipcode Phone Number [facility] [address] [place] [address] * Thyroperoxidase antibody (02/18/2018 12:30 PM CDT) Thyroperoxidase Ab 9 (H) <9 IU/mL [facility] Resulting Agency Comment Performing Organization Information: Site ID: IG Name: [facility] Address: [address] [place] [phone] Director: Dr. Patricio Hampton Performing Organization Address [facility] Phone Number [facility] [employer] [address] [address] II * T3 (02/18/2018 12:30 PM CDT) T3 73 (L) 76 - 181 ng/dL [employer] Resulting Agency Comment Performing Organization Information: Site ID: RGA Name: [facility] Address: [address] [place] [phone] Director: Neetu Lai Performing Organization Address [facility] Phone Number [employer] [address] [address] * Thyroid stimulating hormone (02/18/2018 12:30 PM CDT) Only the most recent of 2 results within the time period is included. TSH 5.86 (H) 0.40 - 4.50 mIU/L [employer] [employer] Resulting Agency Comment Performing Organization Information: Site ID: RGA Name: [facility] Address: [address] [place] [phone] Director: Neetu Lai Performing Organization Address City/State/[facility] Centercode Phone Number [facility] [employer] [place] [phone] * T4, free (02/18/2018 12:30 PM CDT) T4, free 2.0 (H) 0.8 - 1.8 ng/dL [employer] Resulting Agency Comment Performing Organization Information: Site ID: [facility] Name: [facility] Address: [address] [place] [phone] Director: Neetu Lai Performing Organization Address [facility] Centercode Phone Number [place] [address] * Vitamin B12 level (02/18/2018 12:30 PM CDT) Vitamin B12 779 200 - 1,100 pg/mL [employer] Resulting Agency Comment Performing Organization Information: Site ID: [facility] Name: [facility] Address: [address] [place] [phone] Director: Neetu Lai Performing Organization Address [facility]/State/[facility] Centercode Phone Number [employer] [address] [address] * POC glucose (12/31/2017 11:54 AM [employer]) Only the most recent of 5 results within the time period is included. POC glucose 110 (H) 65 - 99 mg/dL [facility] DEPARTMENT OF Comment: PATHOLOGY AND Meter ID: [id number] GENOMIC MEDICINE Import/Export Freight Forwarder: [employer] Performing Organization Address City/State/Zipcode Phone Number [facility] DEPARTMENT [address] [place] [address] PATHOLOGY AND GENOMIC MEDICINE * Estimated GFR (12/31/2017 4:35 AM [employer]) Only the most recent of 3 results within the time period is included. GFR Non Af Amer 48 (A) mL/min/1.73 m2 [facility] PATHOLOGY AND [facility] GFR Af Amer 59 (A) mL/min/1.73 m2 [facility] DEPARTMENT OF Comment: PATHOLOGY AND Chronic kidney disease: <60 [facility] mL/min/1.73m2 Kidney failure: <15 mL/min/1.73m2 [...] Americans. Specimen Plasma specimen Performing Organization Address City/[facility] Centercode Phone Number [address] SpringerThe [place] [phone] [facility] * Basic metabolic panel (12/31/2017 4:35 AM [employer]) Only the most recent of 2 results within the time period is included. Sodium 143 135 - 148 mEq/L [facility] Potassium 3.2 (L) 3.5 - 5.0 mEq/L [facility] Chloride 102 98 - 112 mEq/L [facility] PATHOLOGY [facility] [employer] [facility] CO2 26 24 - 31 mEq/L [facility] Anion gap 15 7 - 15 mEq/L [facility] DEPARTMENT OF Comment: PATHOLOGY AND Starting from January [facility] , anion gap calculation no longer incorporates potassium. Please note the change. BUN 18 8 - 23 mg/dL [facility] PATHOLOGY AND [facility] Creatinine 1.1 (H) 0.5 - 0.9 mg/dL [facility] PATHOLOGY AND [employer] [facility] Glucose 142 (H) 65 - 99 mg/dL [facility] PATHOLOGY [facility] [employer] [facility] Calcium 9.7 8.8 - 10.2 mg/dL [facility] [employer] [facility] Specimen Plasma specimen Performing Organization Address City/[facility]/Zipcode Phone Number [facility] [phone] Center[place] [address] [facility] * PV carotid duplex (12/30/2017 10:30 AM [employer]) L CCA Prox 12.8 cm/s [facility] [...] Organization Address City/State/Zipcode Phone Number [facility] [address] [place] [address] * MRI Brain Wo Contrast (12/30/2017 10:02 AM [employer]) Narrative Performed At EXAMINATION: MRI BRAIN WO CONTRAST [facility] CLINICAL HISTORY: weakness COMPARISON:Brain CT dated December [...] considered mild in terms of its extent. [id number] Procedure Note Hm Interface, Radiology Results Incoming - 12/30/2017 10:12 AM [employer] EXAMINATION: MRI BRAIN WO CONTRAST CLINICAL HISTORY: [...] considered mild in terms of its extent. [id number] Performing Organization Address [facility]/Zipcode Phone Number [facility] [address] [place] [address] * Troponin (12/30/2017 4:09 AM [employer]) Only the most recent of 2 results within the time period is included. Troponin <0.300 0.000 - 0.300 ng/mL [facility] DEPARTMENT OF Comment: PATHOLOGY AND 0.30 - 1.49 GENOMIC MEDICINE ng/mlMay indicate increased risk of acute coronary syndrome. >=1.5 ng/ml Consistent with acute myocardial infarction. The diagnostic value of a single normal or non-diagnostic result is questionable.Serial samples at 2-6 hour intervals are required to rule out acute myocardial injury. Specimen Plasma specimen Performing Organization Address [facility] Phone Number [address] [place] [phone] PATHOLOGY AND GENOMIC MEDICINE * Sedimentation rate (12/30/2017 4:09 AM [employer]) Sedimentation rate 6 0 - 20 mm/hr [facility] DEPARTMENT OF PATHOLOGY AND GENOMIC MEDICINE Specimen Blood Performing Organization Address [facility] Phone Number [address] [place] [address] PATHOLOGY AND GENOMIC MEDICINE * Hemoglobin A1c (12/30/2017 4:09 AM [employer]) Hemoglobin A1C 6.2 (H) 4.0 - 6.0 % [facility] DEPARTMENT OF Comment: PATHOLOGY AND GENOMIC MEDICINE Less than 6% - Goal of therapy for Type II Diabetes Less than 7%-Goal of therapy for Type I Diabetes Less than 8%-Accepta ble control for Type I or Type II Diabetes Greater than 8%-Unacceptabl e control; action indicated. ([id number]) Specimen Blood Performing Organization Address [facility]/Zipcode Phone Number [facility] [place] [address] [place] [address] PATHOLOGY AND GENOMIC MEDICINE * Lipid panel (12/30/2017 4:09 AM [employer]) Cholesterol 177 <200 mg/dL [facility] DEPARTMENT OF PATHOLOGY AND GENOMIC MEDICINE Triglycerides 239 (H) <150 mg/dL [facility] DEPARTMENT OF PATHOLOGY AND GENOMIC MEDICINE HDL cholesterol 35 (L) >40 mg/dL [facility] DEPARTMENT OF PATHOLOGY AND GENOMIC MEDICINE LDL cholesterol 119 (H)Comment: Result <100 mg/dL [facility] DEPARTMENT obtained by direct LDL PATHOLOGY AND measurement GENOMIC MEDICINE Lipid panel SeeBelow [facility] DEPARTMENT OF interpretation Comment: PATHOLOGY [...] mg/dL) Specimen Plasma specimen Performing Organization Address [facility]/Zipcode Phone Number [facility] [place] [phone] [place] [address] [place] [address] PATHOLOGY AND GENOMIC MEDICINE * Lactic acid level, SEPSIS - Now and repeat 2x every 3 hours (12/30/2017 4:08 AM [employer]) Only the most recent of 2 results within the time period is included. Lactic acid 2.2 0.5 - 2.2 mmol/L [facility] DEPARTMENT OF PATHOLOGY AND GENOMIC MEDICINE Specimen Plasma specimen Performing Organization Address [facility] Centercode Phone Number [facility] [phone] [place] [address] [place] [address] PATHOLOGY AND GENOMIC MEDICINE * Urinalysis screen and microscopy, with reflex to culture (12/30/2017 2:35 AM [employer]) Specimen site Clean catch [facility] DEPARTMENT OF PATHOLOGY AND GENOMIC MEDICINE Color, UA Straw [facility] DEPARTMENT OF PATHOLOGY AND GENOMIC MEDICINE Appearance, UA Clear [facility] DEPARTMENT OF PATHOLOGY AND GENOMIC MEDICINE Specific gravity, UA 1.008 1.001 - 1.035 [facility] DEPARTMENT OF PATHOLOGY AND GENOMIC MEDICINE pH, UA 5.0 5.0 - 8.5 [facility] DEPARTMENT OF PATHOLOGY AND GENOMIC MEDICINE Protein, UA Negative Negative [facility] DEPARTMENT OF PATHOLOGY AND GENOMIC MEDICINE Glucose, UA Negative Negative [facility] DEPARTMENT OF PATHOLOGY AND GENOMIC MEDICINE Ketones, UA Negative Negative [facility] DEPARTMENT OF PATHOLOGY AND GENOMIC MEDICINE Bilirubin, UA Negative Negative [facility] DEPARTMENT OF PATHOLOGY AND GENOMIC MEDICINE Blood, UA Negative Negative [facility] DEPARTMENT OF PATHOLOGY AND GENOMIC MEDICINE Nitrite, UA Negative Negative [facility] DEPARTMENT OF PATHOLOGY AND GENOMIC MEDICINE Urobilinogen, UA Negative <2.0 [facility] DEPARTMENT OF PATHOLOGY AND GENOMIC MEDICINE Leukocyte esterase, UA Moderate (A) Negative [facility] DEPARTMENT OF PATHOLOGY AND GENOMIC MEDICINE Round epithelial cells, Few 0 - 1 /HPF [facility] DEPARTMENT OF UA PATHOLOGY AND GENOMIC MEDICINE WBC, UA 21-40 (H) 0 - 4 /HPF [facility] DEPARTMENT OF PATHOLOGY AND GENOMIC MEDICINE RBC, UA 0-5 0 - 2 /HPF [facility] DEPARTMENT OF PATHOLOGY AND GENOMIC MEDICINE Bacteria, UA Trace None seen [facility] DEPARTMENT OF PATHOLOGY AND GENOMIC MEDICINE Yeast, UA None seen [facility] DEPARTMENT OF PATHOLOGY AND GENOMIC MEDICINE Yeast with pseudohyphae, None seen [facility] DEPARTMENT UA PATHOLOGY AND GENOMIC MEDICINE Hyaline casts, UA 3-5 /LPF [facility] DEPARTMENT OF PATHOLOGY AND GENOMIC MEDICINE Specimen Urine Performing Organization Address [facility] Centercode Phone Number [facility] [address] [place] [address] PATHOLOGY AND GENOMIC MEDICINE * Gram stain (12/30/2017 2:35 AM [employer]) Gram stain result Moderate WBC's [facility] DEPARTMENT OF Occasional Gram positive rods PATHOLOGY AND Comment: GENOMIC MEDICINE Specimen Information Specimen Source: Urine Specimen Site: Clean catch Specimen Urine Performing Organization Address City/State/Zipcode Phone Number [facility] DEPARTMENT OF [address] [place] [address] PATHOLOGY AND GENOMIC MEDICINE * Urine culture (12/30/2017 2:35 AM [employer]) Urine culture isolate Gram positive arya [facility] DEPARTMENT OF <10-1 cfu/ml PATHOLOGY AND (A) GENOMIC MEDICINE Comment: Specimen Information Specimen Source: Urine Specimen Site: Clean catch Specimen Urine Performing Organization Address City/[facility]/Zipcode Phone Number [facility] DEPARTMENT OF [address] [place] [address] PATHOLOGY AND GENOMIC MEDICINE * XR Chest 1 Vw Portable (12/30/2017 12:30 AM [employer] [employer]) Narrative Performed At EXAMINATION:XR CHEST 1 VW [...] noted. No acute osseous abnormalities are visualized. [facility]-[id number] Procedure Note Interface, Radiology Results Incoming - 12/30/2017 12:37 AM [employer] [employer] EXAMINATION: XR CHEST 1 VW PORTABLE CLINICAL [...] noted. No acute osseous abnormalities are visualized. [facility]-[id number] Performing Organization Address City/[facility]/Zipcode Phone Number [facility] [address] [place] [address] * Blood culture, aerobic & anaerobic (12/30/2017 12:22 AM [employer]) Only the most recent of 2 results within the time period is included. Blood culture isolate No growth after 5 days of [facility] DEPARTMENT OF incubation. PATHOLOGY AND Comment: GENOMIC MEDICINE Specimen Information Specimen Source: Blood Specimen Site: Antecubital, left Specimen Blood - Antecubital, left Performing Organization Address City/[facility]/Zipcode Phone Number [facility] DEPARTMENT OF [address] [place] [address] PATHOLOGY AND GENOMIC MEDICINE * ECG 12 lead (12/29/2017 11:33 PM [employer] [employer]) Ventricular rate 66 [facility] Atrial rate 66 [facility] GA interval 158 [facility] QRSD interval 84 [facility] QT interval 462 [facility] QTC interval 484 [facility] P axis 1 56 [facility] QRS axis 1 33 [facility] T wave axis 72 [facility] EKG impression Normal sinus [facility] MUSE rhythm-Nonspecific T wave abnormality-Prolonged QT-Abnormal ECG-No previous ECGs available- Procedure Note Mohan Reyes MD - 12/29/2017 10:45 PM [facility] [employer] [facility] Emergency Department Provider Note Location: [facility] ED Patient ID: Jacki Lawson is a 77 y.o. female. Chief Complaint [...] [DF] Mohan Reyes MD [EC] Jeannine Lancaster [facility] Number of Diagnoses or Management [...] noted. No acute osseous abnormalities are visualized. [facility]-[id number] Ct Head Wo Contrast Result Date: 12/30/2017 [...] no CT evidence for acute intracranial abnormality. [facility]-[id number] Mri Brain Wo Contrast Result Date: 12/30/2017 [...] considered mild in terms of its extent. [id number] Procedures ECG 12 lead Date/Time: 12/29/2017 11:36 PM Performed by: MOHAN REYES Authorized by: MOHAN REYES ECG reviewed by ED Physician in the absence of a head wrestling coach: yes Interpretation: Interpretation: normal Rate: ECG rate: [...] Jeannine Lancaster 12/30/17 0100 Mohan Reyes MD 12/30/[id number] Performing Organization Address City/[facility] Phone Number [facility] MUSE [address] [place] [address] * Partial thromboplastin time, activated (12/29/2017 11:26 PM [employer]) PTT 26.3 23.0 - 36.0 sec [facility] DEPARTMENT OF Comment: PATHOLOGY AND PTT therapeutic range for GENOMIC MEDICINE unfractionated heparin is 61.0-112.0 seconds which corresponds to Anti-Xa 0.3-0.7 U/ml. Specimen Blood Performing Organization Address [facility]/Zipcode Phone Number [address] [place] [address] PATHOLOGY AND GENOMIC MEDICINE * Prothrombin time with INR (12/29/2017 11:26 PM [employer]) Prothrombin time 13.1 12.0 - 15.0 sec [facility] DEPARTMENT OF PATHOLOGY AND GENOMIC MEDICINE INR 1.0 [facility] DEPARTMENT OF Comment: PATHOLOGY AND The International Normalized GENOMIC MEDICINE Ratio (INR) is a therapeutic monitoring tool for patients who are stable on oral anticoagulant therapy. An INR of 2.0-3.0 is suggested for deep vein thrombosis/pulmonary embolism. Specimen Blood Performing Organization Address City/State/Zipcode Phone Number [facility] [place] [address] [address] PATHOLOGY AND GENOMIC MEDICINE * CBC with platelet and differential (12/29/2017 11:26 PM [employer]) WBC 7.69 4.50 - 11.00 k/uL [facility] DEPARTMENT OF PATHOLOGY AND GENOMIC MEDICINE RBC 4.15 (L) 4.20 - 5.50 m/uL [facility] DEPARTMENT OF PATHOLOGY AND GENOMIC MEDICINE HGB 12.6 12.0 - 16.0 g/dL [facility] DEPARTMENT OF PATHOLOGY AND GENOMIC MEDICINE HCT 38.2 37.0 - 47.0 % [facility] DEPARTMENT OF PATHOLOGY AND GENOMIC MEDICINE MCV 92.0 82.0 - 100.0 fL [facility] DEPARTMENT OF PATHOLOGY AND GENOMIC MEDICINE MCH 30.4 27.0 - 34.0 pg [facility] DEPARTMENT OF PATHOLOGY AND GENOMIC MEDICINE MCHC 33.0 31.0 - 37.0 g/dL [facility] DEPARTMENT OF PATHOLOGY AND GENOMIC MEDICINE RDW - SD 44.7 37.0 - 55.0 fL [facility] DEPARTMENT OF PATHOLOGY AND GENOMIC MEDICINE MPV 13.4 (H) 8.8 - 13.2 fL [facility] DEPARTMENT OF PATHOLOGY AND GENOMIC MEDICINE Platelet count 178 150 - 400 k/uL [facility] DEPARTMENT OF PATHOLOGY AND GENOMIC MEDICINE Nucleated RBC 0.00 /100 WBC [facility] DEPARTMENT OF PATHOLOGY AND GENOMIC MEDICINE Neutrophils 66.5 39.0 - 69.0 % [facility] DEPARTMENT OF PATHOLOGY AND GENOMIC MEDICINE Lymphocytes 21.5 (L) 25.0 - 45.0 % [facility] DEPARTMENT OF PATHOLOGY AND GENOMIC MEDICINE Monocytes 8.8 0.0 - 10.0 % [facility] DEPARTMENT OF PATHOLOGY AND GENOMIC MEDICINE Eosinophils 1.4 0.0 - 5.0 % [facility] DEPARTMENT OF PATHOLOGY AND GENOMIC MEDICINE Basophils 1.0 0.0 - 1.0 % [facility] DEPARTMENT OF PATHOLOGY AND GENOMIC MEDICINE Immature granulocytes 0.8Comment: "Immature 0.0 - 1.0 % [facility] DEPARTMENT OF granulocytes" (promyelocytes, PATHOLOGY AND myelocytes, metamyelocytes) [facility] Specimen Blood Performing Organization Address [facility] Cent[facility]ode Phone Number [address] [place] [address] PATHOLOGY AND GENOMIC MEDICINE * Influenza antigen (12/29/2017 11:26 PM [employer]) Influenza antigen Negative for Influenza A/B [facility] DEPARTMENT OF antigen. PATHOLOGY AND Comment: GENOMIC MEDICINE Specimen Information Specimen Source: Nares Specimen Site: Right Specimen Nares - Right Performing Organization Address [facility] Centercode Phone Number [address] [place] [address] PATHOLOGY AND GENOMIC MEDICINE * Lipase level (12/29/2017 11:26 PM [employer]) Lipase 28 13 - 60 U/L [facility] DEPARTMENT OF PATHOLOGY AND [employer] MEDICINE Specimen Plasma specimen Performing Organization Address [facility] Centercoco Phone Number [address] [place] [address] PATHOLOGY AND [facility] * Comprehensive metabolic panel (12/29/2017 11:26 PM [employer]) Sodium 141 135 - 148 mEq/L [facility] DEPARTMENT OF PATHOLOGY AND [employer] MEDICINE Potassium 3.4 (L) 3.5 - 5.0 mEq/L [facility] DEPARTMENT OF PATHOLOGY AND GENOMIC MEDICINE Chloride 99 98 - 112 mEq/L [facility] DEPARTMENT OF PATHOLOGY AND GENOMIC MEDICINE CO2 21 (L) 24 - 31 mEq/L [facility] DEPARTMENT OF PATHOLOGY AND [employer] MEDICINE Anion gap 21 (H) 7 - 15 mEq/L [facility] DEPARTMENT OF Comment: PATHOLOGY AND Starting from January [facility] , anion gap calculation no longer incorporates potassium. Please note the change. BUN 34 (H) 8 - 23 mg/dL [facility] DEPARTMENT OF PATHOLOGY AND GENOMIC MEDICINE Creatinine 2.3 (H) 0.5 - 0.9 mg/dL [facility] DEPARTMENT OF PATHOLOGY AND GENOMIC MEDICINE Glucose 229 (H) 65 - 99 mg/dL [facility] DEPARTMENT OF PATHOLOGY AND GENOMIC MEDICINE Calcium 9.9 8.8 - 10.2 mg/dL [facility] DEPARTMENT OF PATHOLOGY AND GENOMIC MEDICINE Protein 6.9 6.3 - 8.3 g/dL [facility] DEPARTMENT OF Comment: PATHOLOGY AND [facility] GENOMIC MEDICINE 4.6-7.0 g/dL 1 week 4.4-7.6 g/dL 7 months-1year 5.1-7.3 g/dL 1-2 years5.6-7 .5 g/dL >3 years6.0-8 .0 g/dL 18-150 6.3-8.3 g/dL Albumin 4.4 3.5 - 5.0 g/dL [facility] DEPARTMENT OF PATHOLOGY AND GENOMIC MEDICINE A/G ratio 1.8 0.7 - 3.8 [facility] DEPARTMENT OF PATHOLOGY AND GENOMIC MEDICINE Alkaline phosphatase 98 35 - 104 U/L [facility] DEPARTMENT OF PATHOLOGY AND GENOMIC MEDICINE AST 42 (H) 10 - 35 U/L [facility] DEPARTMENT OF PATHOLOGY AND GENOMIC MEDICINE ALT 24 5 - 50 U/L [facility] DEPARTMENT OF PATHOLOGY AND GENOMIC MEDICINE Total bilirubin 0.6 0.0 - 1.2 mg/dL [facility] DEPARTMENT OF PATHOLOGY AND GENOMIC MEDICINE Specimen Plasma specimen Performing Organization Address City/State/[facility] Phone Number [place] [phone] [place] [address] PATHOLOGY AND GENOMIC MEDICINE * CRITICAL CARE (12/29/2017 10:45 PM [employer]) Narrative Performed At Mohan Reyes MD 12/30/20178:58 [...] this patient from another provider.: no after 10/21/2017 Insurance Payer Benefit Subscriber ID Type Phone Address Plan / Group MEDICARE MEDICARE xxxxxxxxxx Medicare [place], [place] PART A AND B CIGNA CIGNA [facility] xxxxxxxxx HMO Advance Directives Patient has advance care planning documents on file. For more information, cody xiong contact: Aubrey Chapman [address] [place] [address]
--- OUTSIDE RECORDS SUMMARY | 2018-10-22 07:23 | XMS REPORT | Continuity of Care Document ---
Author Author [facility] Interface Address Unknown Phone Unavailable Problems Problem Status Onset Date Classification Date Reported Comments Source Acute renal insufficiency Active Problem 08/11/2018 [facility] Dehydration Active Problem 08/11/2018 [facility] Hypokalemia Active Problem 08/11/2018 [facility] Syncope Active Problem 08/11/2018 [facility] UTI Active Problem 08/11/2018 [facility] Urinary tract infection Active Problem 08/11/2018 [facility] Vomiting Active Problem 08/11/2018 [facility] Medications Medication Details Route Status Patient Instructions Ordering Provider Order Date Source Cholecalciferol (Vitamin D3) (Vitamin D) 2,000 Unit Capsule, 2000 Unit Oral Daily Active 08/04/2018 [facility] Cyanocobalamin (Vitamin B-12) (Vitamin B-12) 1,000 Mcg Tab.subl, 1000 Mcg Sublingual Daily Active 08/04/2018 [facility] Donepezil Hcl (Aricept) 5 Mg Tablet, 10 Mg Oral Bedtime Active 08/04/2018 [facility] Folic Acid 1 Mg Tablet, 1 Mg Oral Daily Active 08/04/2018 [facility] Gabapentin 300 Mg Capsule, 300 Mg Oral Bedtime Active 08/04/2018 [facility] Hydrocortisone/Pramoxine (Analpram Hc 2.5% Cream) 30 Gm Cream.appl, 1 Supp.rect Rectal Daily Active 08/04/2018 [facility] Memantine Hcl (Namenda) 10 Mg Tablet, 10 Mg Oral Daily Active 08/04/2018 [facility] Pravastatin Sodium 40 Mg Tablet, 40 Mg Oral Daily Active 08/04/2018 [facility] Psyllium Husk/Aspartame (Metamucil Fiber Singles Packet) 3.4 Gm Powd.pack, 1 Packet Oral As Needed as needed for Constipation Active 08/04/2018 [facility] Quetiapine Fumarate (Seroquel) 25 Mg Tablet, 25 Mg Oral Twice A Day Active 08/04/2018 [facility] Ranitidine Hcl 300 Mg Capsule, 300 Mg Oral Daily Active 08/04/2018 [facility] Sitagliptin Phos/Metformin Hcl (Janumet Xr 50-1,000 Mg Tablet) 1 Each Tbmp.24hr, 1 Tab Oral Daily Active 08/04/2018 [facility] Cephalexin Monohydrate (Keflex) 500 Mg Capsule, 500 Mg Oral Every 12 Hours Active [facility] 09/19/2017 [facility] Docusate Sodium (Colace) 100 Mg/10 Ml Liqd, 100 Mg Ng Tube Twice A Day Active [facility] 09/19/2017 [facility] Famotidine 20 Mg Tab, 20 Mg Oral Before Breakfast Active [facility] 09/19/2017 [facility] Pravastatin Sodium 20 Mg Tablet, 40 Mg Oral Bedtime Active [facility] 09/19/2017 [facility] Psyllium 6 Gm Pack, 6 Gm Oral Daily as needed for Constipation Active [facility] 09/19/2017 [facility] Calcium Carbonate 200 Mg Tab.chew, 600 Mg Oral Daily Active 09/14/2017 [facility] Lorazepam 0.5 Mg Tablet, 0.5 Mg Oral Bedtime Active 09/14/2017 [facility] Mirabegron (Myrbetriq) 50 Mg Tab.er.24h, 50 Mg Oral Daily Active 09/14/2017 [facility] Dexilant , Active 09/13/2017 [facility] Dexlansoprazole (Dexilant) 60 Mg Shailesh., 60 Mg Oral Daily Active 09/13/2017 [facility] Estrogens,Conjugated (Premarin) 45 Gm Cream.appl, 45 Gm Vaginal as needed Active 09/13/2017 [facility] Fluconazole (Diflucan) 100 Mg Tablet, Mg Oral Daily Active 09/13/2017 [facility] Levothyroxine Sodium (Levothroid) 175 Mcg Tablet, Active 09/13/2017 [facility] Paroxetine Hcl (Paxil) 20 Mg Tablet, Daily Active 09/13/2017 [facility] Polyethylene Glycol 3350 17 Gm Powd.pack, 17 Gm Oral Daily Active 09/13/2017 [facility] Pravastatin Sodium 40 Mg Tablet, Daily Active 09/13/2017 [facility] Senna Fruit/Conc/Doc Sod/Bisa (Senna-S Tablet) 1 Ea Tab, 2 Each Oral Bedtime Active 09/13/2017 [facility] Myerbetriq , 50 Mg Daily Active 10/14/2015 [facility] Oxybutynin Chloride (Oxybutynin Chloride Er) 10 Mg Tab.osm.24, 10 Mg Oral Daily Active 05/23/2015 [facility] Vilazodone Hydrochloride (Viibryd) 40 Mg Tablet, Daily Active 06/03/2012 [facility] Amlodipine Besylate 5 Mg Tablet Daily Active [facility] Anastrozole 1 Mg Tablet Daily Active [facility] Bupropion Hcl (Bupropion Xl) 150 Mg Tab.er.24h Daily Active [facility] Clopidogrel Bisulfate (Plavix) 75 Mg Tablet Active [facility] Gabapentin 300 Mg Capsule Bedtime Active [facility] Levothyroxine Sodium 150 Mcg Tablet Daily Active [facility] Pantoprazole Sodium (Protonix) 40 Mg Tablet. Active [facility] Paroxetine Hcl 20 Mg Tablet Bedtime Active [facility] Sitagliptin Phos/Metformin Hcl (Janumet 50-1,000 Mg Tablet) 1 Each Tablet Daily Active [facility] Allergies, Adverse Reactions, Alerts Substance Category Reaction Severity Reaction type Status Date Reported Comments Source iodine ITCHING Mild Allergy to Substance Active 08/04/2018 [facility] Penicillin HIVES Mild Allergy to Substance Active 08/04/2018 [facility] Sucralfate NUMBNESS IN MOUTH AND FACE Mild Allergy to Substance Active 08/04/2018 [facility] Codeine ITCHING Mild Allergy to Substance Active 08/04/2018 [facility] Hydrocodone Unknown Allergy to Substance Active 08/04/2018 [facility] Ramipril COUGH Mild Allergy to Substance Active 08/04/2018 [facility] Immunizations Immunization Date Given Site Status Last Updated Comments Source Results Order Name Results Value Reference Range Date Interpretation Comments Source Capillary blood glucose measurement by glucometer (mass/volume) Capillary blood glucose measurement by glucometer (mass/volume) 105 70 - 120 08/10/2018 [facility] Automated blood basophil count (count/volume) Automated blood basophil count (count/volume) 0.1 0.0 - 0.1 08/10/2018 [facility] Automated blood basophil count as percentage of total leukocytes Automated blood basophil count as percentage of total leukocytes 0.9 0.0 - 1.0 08/10/2018 [facility] Automated blood eosinophil count Automated blood eosinophil count 0.2 0.0 - 0.4 08/10/2018 [facility] Automated blood eosinophil count as percentage of total leukocytes Automated blood eosinophil count as percentage of total leukocytes 2.2 0.0 - 6.0 08/10/2018 [facility] Automated blood hematocrit (volume fraction) Automated blood hematocrit (volume fraction) 32.7 34.2 - 44.1 08/10/2018 [facility] Automated blood lymphocyte count as percentage ot total leukocytes Automated blood lymphocyte count as percentage ot total leukocytes 29.8 18.0 - 39.1 08/10/2018 [facility] Automated blood monocyte count as percentage of total leukocytes Automated blood monocyte count as percentage of total leukocytes 8.5 4.4 - 11.3 08/10/2018 [facility] Automated blood neutrophil count Automated blood neutrophil count 4.0 2.1 - 6.9 08/10/2018 [facility] Automated blood platelet count (count/volume) Automated blood platelet count (count/volume) 138 140 - 360 08/10/2018 [facility] Automated blood segmented neutrophil count as percentage of total leukocytes Automated blood segmented neutrophil count as percentage of total leukocytes 58.0 38.7 - 80.0 08/10/2018 [facility] Automated erythrocyte mean corpuscular hemoglobin (mass per erythrocyte) Automated erythrocyte mean corpuscular hemoglobin (mass per erythrocyte) 30.5 28 - 32 08/10/2018 [facility] Automated erythrocyte mean corpuscular hemoglobin concentration measurement (mass/volume) Automated erythrocyte mean corpuscular hemoglobin concentration measurement (mass/volume) 33.9 31 - 35 08/10/2018 [facility] Automated erythrocyte mean corpuscular volume Automated erythrocyte mean corpuscular volume 89.8 81 - 99 08/10/2018 [facility] Blood erythrocytes automated count (number/volume) Blood erythrocytes automated count (number/volume) 3.64 3.6 - 5.1 08/10/2018 [facility] Blood hemoglobin measurement (moles/volume) Blood hemoglobin measurement (moles/volume) 11.1 12.0 - 16.0 08/10/2018 [facility] Blood leukocytes automated count (number/volume) Blood leukocytes automated count (number/volume) 6.84 4.8 - 10.8 08/10/2018 [facility] Blood lymphocytes count (number/volume) Blood lymphocytes count (number/volume) 2.0 1.0 - 3.2 08/10/2018 [facility] Blood monocytes automated count (number/volume) Blood monocytes automated count (number/volume) 0.6 0.2 - 0.8 08/10/2018 [facility] Estimated glomerular filtration rate (GFR) determination Estimated glomerular filtration rate (GFR) determination 55 60 08/10/2018 [facility] Glucose measurement Glucose measurement 120 74 - 118 08/10/2018 [facility] Serum or plasma anion gap Serum or plasma anion gap 13.2 8 - 16 08/10/2018 [facility] Serum or plasma calcium measurement (mass/volume) Serum or plasma calcium measurement (mass/volume) 9.1 8.4 - 10.2 08/10/2018 [facility] Serum or plasma carbon dioxide, total measurement (moles/volume) Serum or plasma carbon dioxide, total measurement (moles/volume) 22 22 - 29 08/10/2018 [facility] Serum or plasma chloride measurement (moles/volume) Serum or plasma chloride measurement (moles/volume) 111 98 - 107 08/10/2018 [facility] Serum or plasma creatinine measurement (mass/volume) Serum or plasma creatinine measurement (mass/volume) 0.99 0.57 - 1.11 08/10/2018 [facility] Serum or plasma potassium measurement (moles/volume) Serum or plasma potassium measurement (moles/volume) 3.2 3.5 - 5.1 08/10/2018 [facility] Serum or plasma sodium measurement (moles/volume) Serum or plasma sodium measurement (moles/volume) 143 136 - 145 08/10/2018 [facility] Serum or plasma urea nitrogen measurement (mass/volume) Serum or plasma urea nitrogen measurement (mass/volume) 16 7 - 26 08/10/2018 [facility] Serum or plasma urea nitrogen/creatinine mass ratio Serum or plasma urea nitrogen/creatinine mass ratio 16 6 - 25 08/10/2018 [facility] Red Cell Distribution Width 13.8 11.7 - 14.4 08/10/2018 [facility] IM GRANULOCYTES % 0.6 0.0 - 1.0 08/10/2018 [facility] Absolute Immature Granulocyte (auto 0.04 0 - 0.1 08/10/2018 [facility] Serum or plasma magnesium measurement (mass/volume) Serum or plasma magnesium measurement (mass/volume) 1.2 1.3 - 2.1 08/09/2018 [facility] Plasma globulin measurement (mass/volume) Plasma globulin measurement (mass/volume) 2.8 2.3 - 3.5 08/08/2018 [facility] Serum or plasma alanine aminotransferase measurement (enzymatic activity/volume) Serum or plasma alanine aminotransferase measurement (enzymatic activity/volume) 17 0 - 55 08/08/2018 [facility] Serum or plasma albumin measurement (mass/volume) Serum or plasma albumin measurement (mass/volume) 3.8 3.5 - 5.0 08/08/2018 [facility] Serum or plasma albumin/globulin mass ratio Serum or plasma albumin/globulin mass ratio 1.4 0.8 - 2.0 08/08/2018 [facility] Serum or plasma alkaline phosphatase measurement (enzymatic activity/volume) Serum or plasma alkaline phosphatase measurement (enzymatic activity/volume) 89 40 - 150 08/08/2018 [facility] Serum or plasma protein measurement (mass/volume) Serum or plasma protein measurement (mass/volume) 6.6 6.5 - 8.1 08/08/2018 [facility] Serum or plasma total bilirubin measurement (mass/volume) Serum or plasma total bilirubin measurement (mass/volume) 0.6 0.2 - 1.2 08/08/2018 [facility] Aspartate Amino Transf (AST/SGOT) 23 5 - 34 08/08/2018 [facility] Serum or plasma cholesterol in HDL measurement (mass/volume) Serum or plasma cholesterol in HDL measurement (mass/volume) 35 40 - 60 08/05/2018 [facility] Serum or plasma cholesterol in LDL measurement (mass/volume) Serum or plasma cholesterol in LDL measurement (mass/volume) 77 60 - 130 08/05/2018 [facility] Serum or plasma cholesterol measurement (mass/volume) Serum or plasma cholesterol measurement (mass/volume) 150 0 - 199 08/05/2018 [facility] Serum or plasma thyrotropin measurement by detection limit <=0.005 miu/l (units/volume) Serum or plasma thyrotropin measurement by detection limit <=0.005 miu/l (units/volume) 0.833 0.350 - 4.940 08/05/2018 [facility] Serum or plasma total cholesterol/cholesterol in HDL mass ratio Serum or plasma total cholesterol/cholesterol in HDL mass ratio 4.3 3.0 - 3.6 08/05/2018 [facility] Serum or plasma triglyceride measurement (mass/volume) Serum or plasma triglyceride measurement (mass/volume) 192 0 - 149 08/05/2018 [facility] Hemoglobin A1c Percent 5.6 4.0 - 7.0 08/05/2018 [facility] Automated urine sediment leukocyte count by microscopy (number/high power field) Automated urine sediment leukocyte count by microscopy (number/high power field) null 0 - 5 08/04/2018 [facility] Bacteria detection in urine sediment by light microscopy Bacteria detection in urine sediment by light microscopy MANY NONE 08/04/2018 [facility] Bacterial urine culture Bacterial urine culture Organism: ESCHERICHIA COLI 08/04/2018 [facility] Epithelial cells detection in urine sediment by light microscopy Epithelial cells detection in urine sediment by light microscopy NONE NONE 08/04/2018 [facility] Erythrocytes detection in urine sediment by light microscopy Erythrocytes detection in urine sediment by light microscopy NONE 0 - 5 08/04/2018 [facility] Specific gravity of Urine by Test strip Specific gravity of Urine by Test strip 1.030 1.010 - 1.025 08/04/2018 [facility] Urine clarity Urine clarity SL CLOUDY CLEAR 08/04/2018 [facility] Urine color determination Urine color determination YELLOW YELLOW 08/04/2018 [facility] Urine erythrocytes detection Urine erythrocytes detection NEGATIVE NEGATIVE 08/04/2018 [facility] Urine glucose detection Urine glucose detection NEGATIVE NEGATIVE 08/04/2018 [facility] Urine ketones detection by automated test strip Urine ketones detection by automated test strip TRACE NEGATIVE 08/04/2018 [facility] Urine leukocyte esterase detection by dipstick Urine leukocyte esterase detection by dipstick 1+ NEGATIVE 08/04/2018 [facility] Urine nitrite detection Urine nitrite detection NEGATIVE NEGATIVE 08/04/2018 [facility] Urine pH measurement by automated test strip Urine pH measurement by automated test strip 6 5 - 7 08/04/2018 [facility] Urine protein measurement by test strip (mass/volume) Urine protein measurement by test strip (mass/volume) NEGATIVE NEGATIVE 08/04/2018 [facility] Urine total bilirubin measurement (mass/volume) Urine total bilirubin measurement (mass/volume) NEGATIVE NEGATIVE 08/04/2018 [facility] Urine urobilinogen measurement by test strip (mass/volume) Urine urobilinogen measurement by test strip (mass/volume) 0.2 0.2 - 1 08/04/2018 [facility] Activated partial thromboplastin time (aPTT) in platelet poor plasma bycoagulation assay Activated partial thromboplastin time (aPTT) in platelet poor plasma bycoagulation assay 24.0 23.8 - 35.5 08/04/2018 [facility] INR in Platelet poor plasma by Coagulation assay INR in Platelet poor plasma by Coagulation assay 0.90 08/04/2018 [facility] Prothrombin time (PT) in platelet poor plasma by coagulation assay Prothrombin time (PT) in platelet poor plasma by coagulation assay 13.0 11.9 - 14.5 08/04/2018 [facility] Serum or plasma creatine kinase MB measurement (mass/volume) Serum or plasma creatine kinase MB measurement (mass/volume) 1.60 0 - 5.0 08/04/2018 [facility] Serum or plasma creatine kinase measurement (enzymatic activity/volume) Serum or plasma creatine kinase measurement (enzymatic activity/volume) 65 29 - 168 08/04/2018 [facility] Serum or plasma lipase measurement (enzymatic activity/volume) Serum or plasma lipase measurement (enzymatic activity/volume) 21 8 - 78 08/04/2018 [facility] Troponin I measurement by highly sensitive enzyme immunoassay Troponin I measurement by highly sensitive enzyme immunoassay 0.004 0 - 0.300 08/04/2018 [facility] Bacterial urine culture Bacterial urine culture Urine Culture [facility] Vital Signs Vital Sign Value Date Comments Source Encounters Location Location Details Encounter Type Encounter Number Reason For Visit Attending Provider ADM Date DC Date Status Source Discharged Inpatient [id number] SUSANA NG MD 08/05/2018 08/10/2018 [facility] Procedures Procedure Code Date Perfomer Comments Source Computed tomography of brain without radiopaque contrast [id number] 08/04/2018 [facility] Computed tomography of cervical spine without contrast [id number] 08/04/2018 [facility]
--- NOTE | 2018-10-22 08:04 | NUR ---
DR. BOYD AT BEDSIDE EVALUATING PATIENT
[2018-10-22] MEDS ORDERED: ONDANSETRON HCL 4 MG ORAL DISINTEGRATING TAB ONE (08:18)
--- NOTE | 2018-10-22 08:24 | NUR ---
PATIENT STATES SHE HAD LOST HER BLOOD SUGAR SUPPLIES AND HAS NOT TAKEN IT IN 2 DAYS. SHE WANTED TO LET DR. BOYD KNOW
[2018-10-22 08:32] LABS: BILIRUBIN,URINE NEGATIVE (NEGATIVE); CLARITY,URINE HAZY (CLEAR); COLOR,URINE YELLOW (YELLOW); KETONES,URINE TRACE (NEGATIVE); LEUKOCYTE ESTERASE ,URINE 1+ (NEGATIVE); NITRITE,URINE NEGATIVE (NEGATIVE); PROTEIN,URINE DIPSTICK 1+ (NEGATIVE); URINE UROBILINOGEN 0.2 mg/dL (0.2 - 1)
[2018-10-22 08:36] LABS: WBC,URINE (MAN) 21-50 /HPF (0-5)
[2018-10-22 08:37] LABS: AMORPHOUS SEDIMENT,URINE FEW (FEW); BACTERIA,URINE MODERATE /HPF; CALCIUM OXALATE CRYSTALS,UR RARE (FEW); EPITHELIAL CELLS,URINE FEW /LPF; MUCUS,URINE FEW (RARE)
[2018-10-22] MEDS ORDERED: CEFEPIME HCL 1 GM VIAL IM ONE (08:45)
[2018-10-22] MEDS ORDERED: CEFEPIME 1GM/NS 0.9% 50 ML 50 ML IV ONE (08:51)
[2018-10-22] MEDS ORDERED: ONDANSETRON HCL 4 MG ORAL DISINTEGRATING TAB PO ONE (09:00)
== END 2018-10-22 09:35 | disposition home or self-care (01) ==
LOC: ER 07:19
DX: N30.21 Other chronic cystitis with hematuria (principal); R11.0 Nausea; K59.09 Other constipation; F03.90 Unspecified dementia, unspecified severity, without behavioral disturbance, psychotic disturbance, mood disturbance, and anxiety; F05 Delirium due to known physiological condition; I10 Essential (primary) hypertension; E11.42 Type 2 diabetes mellitus with diabetic polyneuropathy; E78.5 Hyperlipidemia, unspecified; E03.9 Hypothyroidism, unspecified; Z88.5 Allergy status to narcotic agent; Z88.0 Allergy status to penicillin; Z88.8 Allergy status to other drugs, medicaments and biological substances; Z91.048 Other nonmedicinal substance allergy status; Z82.49 Family history of ischemic heart disease and other diseases of the circulatory system
CPT/HCPCS: 36415; 81001; 82948; 87086; 87186; 93005; 99283; J0692 ×2; Q0162

== ENCOUNTER 2019-05-16 13:20 | Emergency (ER) | payer MEDICARE, OTHER ==
[~2019-05-16] VITALS: Ht 170.2 cm; Wt 64.4 kg
--- OUTSIDE RECORDS SUMMARY | 2019-05-16 13:25 | XMS REPORT | Clinical Summary ---
Author Author [facility] Address Unknown Phone Unavailable Care Team Providers Care Learning And Development Associate Name Role Phone Ambika Lacey MD PCP [...] mg by 0 mg tablet mouth daily. Active Problems Problem Noted Date Orthostatic hypotension 02/18/2018 Advanced dementia 02/18/2018 Mood disorder 02/18/2018 Fall 02/18/2018 Acute kidney injury 12/30/2017 Encounters Care Team Description Date Type Specialty Luzma Mota RN 01/18/2019 Patient Quality Outreach Mary Hahn MA 06/02/2018 Patient Quality Outreach Hiram Patricia MD Contusion of face, initial encounter (Primary Dx); Fall from standing, initial encounter 05/24/2018 Emergency Emergency Medicine after 05/15/2018 Immunizations Name Dates Previously Given Next Due [...] Due Date Last Done Comments SHINGLES VACCINES (#1) 1992 65+ PNEUMOCOCCAL VACCINE 10/18/2018 10/18/2017 (2 of 2 - PPSV23) INFLUENZA VACCINE 06/01/2019 07/23/2017 Procedures Comments Procedure Name Priority Date/Time Associated Diagnosis CT MAXILLOFACIAL WO STAT 05/24/2018 CONTRAST 8:[address] HEAD WO CONTRAST STAT 05/24/2018 8:32 AM CDT after 05/15/2018 Results * CT Maxillofacial Wo Contrast (05/24/2018 8:32 AM CDT) Specimen Narrative Performed At EXAMINATION: CT MAXILLOFACIAL WO CONTRAST [facility] CLINICAL HISTORY: fall from standingleft periorbital [...] left parotid gland. No evidence of fracture. [id number] Procedure Note Hm Interface, Radiology Results Incoming [...] left parotid gland. No evidence of fracture. [id number] Performing Organization Address City/State/Zipcode Phone Number [facility] [address] [place] [address] * CT Head Wo Contrast (05/24/2018 8:32 AM CDT) Specimen Narrative Performed At EXAMINATION:CT HEAD WO CONTRAST [facility] CLINICAL HISTORY:Head [id number] clinical riskinitial exam, fall from standingleft temporal [...] hematoma formation. No evidence of underlying fracture. [id number] Procedure Note Interface, Radiology Results - 05/24/2018 8:40 AM CDT EXAMINATION: CT [...] hematoma formation. No evidence of underlying fracture. [id number] Performing Organization Address City/State/Zipcode Phone Number [facility] [address] [place] [address] after 05/15/2018 Insurance Type Payer Benefit Subscriber ID Effective Phone Address Plan / Dates Group Medicare MEDICARE MEDICARE xxxxxxxxxx 2007-P [place], PART A AND resent [place] B O [employer] xxxxxxxxx 2016- Present Advance Directives Patient has advance care planning documents on file. For more information, cody xiong contact: Aubrey Chapman [address] [place] [address]
--- OUTSIDE RECORDS SUMMARY | 2019-05-16 13:26 | XMS REPORT | Continuity of Care Document ---
Author Author [employer] Organization [employer] Address Unknown Phone Unavailable Care Team Providers Care Behavioral Health Counselor Name Role Phone [facility] [employer] [employer] Information Exchange Unavailable Unavailable Problems Problem Status Onset Date Classification Date Reported Comments Source Acute renal insufficiency Active Problem 12/23/2018 [facility] Dehydration Active Problem 12/23/2018 [facility] Hypokalemia Active Problem 12/23/2018 [facility] Syncope Active Problem 12/23/2018 [facility] UTI Active Problem 12/23/2018 [facility] Urinary tract infection Active Problem 12/23/2018 [facility] Vomiting Active Problem 12/23/2018 [facility] Altered mental status Active Problem 12/23/2018 [facility] Sepsis Active Problem 12/23/2018 [facility] Acquired hypothyroidism Active Problem 03/04/2019 [facility] Type 2 diabetes mellitus with other diabetic kidney complication Active Problem 03/04/2019 [facility] Depression, unspecified depression type Active Problem 03/04/2019 [facility] Hyperlipidemia, unspecified hyperlipidemia type Active Problem 03/04/2019 [facility] Essential hypertension Active Problem 03/04/2019 [facility] supervisor intermediates current use of insulin Active Problem 03/04/2019 [facility] Frequent urinary incontinence Active Problem 03/04/2019 [facility] TIA Active Problem 03/04/2019 [facility] Chronic UTI Active Diagnosis 12/27/2018 [facility] Itching Active Diagnosis 12/27/2018 [facility] Dementia without behavioral disturbance, unspecified dementia type Active Problem 03/04/2019 [facility] Stage 3 chronic kidney disease Active Problem 03/04/2019 [facility] Gastroesophageal reflux disease, esophagitis presence not specified Active Problem 03/04/2019 [facility] Dizziness Active Diagnosis 03/04/2019 [facility] Leukocytosis, unspecified type Active Diagnosis 03/04/2019 [facility] Dislocation of left shoulder joint, subsequent encounter Active Diagnosis 03/04/2019 [facility] Abnormal urine odor Active Diagnosis 03/04/2019 [facility] Non-intractable vomiting with nausea, unspecified vomiting type Active Diagnosis 02/18/2019 [facility] Screening for colon cancer Active Diagnosis 02/18/2019 [facility] Encntr for general adult medical exam w/o abnormal findings Active Diagnosis 02/18/2019 [facility] Asymptomatic postmenopausal estrogen deficiency Active Diagnosis 02/18/2019 [facility] Screening for breast cancer Active Diagnosis 02/18/2019 [facility] Medications Medication Details Route Status Patient Instructions Ordering Provider Order Date Source Cipro 1 tablet Orally Active 500 mg Orally every 12 hrs [place] 03/03/2019 [facility] Janumet 1 tablet with meals Orally Active 50-1000 MG Orally daily [place] 02/16/2019 [facility] BuPROPion HCl ER (XL) 1 tablet in the morning Orally Active 300 MG Orally Once a day [place] 11/28/2018 [facility] Ceftin 1 tablet Orally Active 250 MG Orally every 12 hrs [place] 10/28/2018 [facility] Cholecalciferol (Vitamin D3) (Vitamin D) 2,000 Unit Capsule, 2000 Unit Oral Daily Active 08/04/2018 [facility] Cyanocobalamin (Vitamin B-12) (Vitamin B-12) 1,000 Mcg Tab.subl, 1000 Mcg Sublingual Daily Active 08/04/2018 [facility] Donepezil Hcl (Aricept) 5 Mg Tablet, 10 Mg Oral Bedtime Active 08/04/2018 [facility] Folic Acid 1 Mg Tablet, 1 Mg Oral Daily Active 08/04/2018 [facility] Gabapentin 300 Mg Capsule, 300 Mg Oral Bedtime Active 08/04/2018 [facility] Hydrocortisone/Pramoxine (Analpram Hc 2.5% Cream) 30 Gm Cream.appl, 1 Supp.rect Rectal Daily Active 08/04/2018 [facility] Memantine Hcl (Namenda) 10 Mg Tablet, 10 Mg Oral Daily Active 08/04/2018 [facility] Pravastatin Sodium 40 Mg Tablet, 40 Mg Oral Daily Active 08/04/2018 [facility] Psyllium Husk/Aspartame (Metamucil Fiber Singles Packet) 3.4 Gm Powd.pack, 1 Packet Oral As Needed as needed for Constipation Active 08/04/2018 [facility] Quetiapine Fumarate (Seroquel) 25 Mg Tablet, 25 Mg Oral Twice A Day Active 08/04/2018 [facility] Ranitidine Hcl 300 Mg Capsule, 300 Mg Oral Daily Active 08/04/2018 [facility] Sitagliptin Phos/Metformin Hcl (Janumet Xr 50-1,000 Mg Tablet) 1 Each Tbmp.24hr, 1 Tab Oral Daily Active 08/04/2018 [facility] Cholecalciferol (Vitamin D3) (Vitamin D) 2,000 Unit Capsule, 2000 Unit Oral Daily Active 08/04/2018 [facility] Cyanocobalamin (Vitamin B-12) (Vitamin B-12) 1,000 Mcg Tab.subl, 1000 Mcg Sublingual Daily Active 08/04/2018 [facility] Folic Acid 1 Mg Tablet, 1 Mg Oral Daily Active 08/04/2018 [facility] Gabapentin 300 Mg Capsule, 300 Mg Oral Bedtime Active 08/04/2018 [facility] Hydrocortisone/Pramoxine (Analpram Hc 2.5% Cream) 30 Gm Cream.appl, 1 Supp.rect Rectal Daily Active 08/04/2018 [facility] Memantine Hcl (Namenda) 10 Mg Tablet, 10 Mg Oral Daily Active 08/04/2018 [facility] Pravastatin Sodium 40 Mg Tablet, 40 Mg Oral Daily Active 08/04/2018 [facility] Psyllium Husk/Aspartame (Metamucil Fiber Singles Packet) 3.4 Gm Powd.pack, 1 Packet Oral As Needed as needed for Constipation Active 08/04/2018 [facility] Quetiapine Fumarate (Seroquel) 25 Mg Tablet, 25 Mg Oral Twice A Day Active 08/04/2018 [facility] Ranitidine Hcl 300 Mg Capsule, 300 Mg Oral Daily Active 08/04/2018 [facility] Sitagliptin Phos/Metformin Hcl (Janumet Xr 50-1,000 Mg Tablet) 1 Each Tbmp.24hr, 1 Tab Oral Daily Active 08/04/2018 [facility] Cephalexin Monohydrate (Keflex) 500 Mg Capsule, 500 Mg Oral Every 12 Hours Active [facility] 09/19/2017 [facility] Docusate Sodium (Colace) 100 Mg/10 Ml Liqd, 100 Mg Ng Tube Twice A Day Active [facility] 09/19/2017 [facility] Famotidine 20 Mg Tab, 20 Mg Oral Before Breakfast Active [facility] 09/19/2017 [facility] Pravastatin Sodium 20 Mg Tablet, 40 Mg Oral Bedtime Active [facility] 09/19/2017 [facility] Psyllium 6 Gm Pack, 6 Gm Oral Daily as needed for Constipation Active [facility] 09/19/2017 [facility] Cephalexin Monohydrate (Keflex) 500 Mg Capsule, 500 Mg Oral Every 12 Hours Active [facility] 09/19/2017 [facility] Docusate Sodium (Colace) 100 Mg/10 Ml Liqd, 100 Mg Ng Tube Twice A Day Active [facility] 09/19/2017 [facility] Famotidine 20 Mg Tab, 20 Mg Oral Before Breakfast Active [facility] 09/19/2017 [facility] Pravastatin Sodium 20 Mg Tablet, 40 Mg Oral Bedtime Active [facility] 09/19/2017 [facility] Calcium Carbonate 200 Mg Tab.chew, 600 Mg Oral Daily Active 09/14/2017 [facility] Lorazepam 0.5 Mg Tablet, 0.5 Mg Oral Bedtime Active 09/14/2017 [facility] Mirabegron (Myrbetriq) 50 Mg Tab.er.24h, 50 Mg Oral Daily Active 09/14/2017 [facility] Calcium Carbonate 200 Mg Tab.chew, 600 Mg Oral Daily Active 09/14/2017 [facility] Lorazepam 0.5 Mg Tablet, 0.5 Mg Oral Bedtime Active 09/14/2017 [facility] Mirabegron (Myrbetriq) 50 Mg Tab.er.24h, 50 Mg Oral Daily Active 09/14/2017 [facility] Dexilant , Active 09/13/2017 [facility] Dexlansoprazole (Dexilant) 60 Mg Cap., 60 Mg Oral Daily Active 09/13/2017 [facility] Estrogens,Conjugated (Premarin) 45 Gm Cream.appl, 45 Gm Vaginal as needed Active 09/13/2017 [facility] Fluconazole (Diflucan) 100 Mg Tablet, Mg Oral Daily Active 09/13/2017 [facility] Levothyroxine Sodium (Levothroid) 175 Mcg Tablet, Active 09/13/2017 [facility] Paroxetine Hcl (Paxil) 20 Mg Tablet, Daily Active 09/13/2017 [facility] Polyethylene Glycol 3350 17 Gm Powd.pack, 17 Gm Oral Daily Active 09/13/2017 [facility] Pravastatin Sodium 40 Mg Tablet, Daily Active 09/13/2017 [facility] Senna Fruit/Conc/Doc Sod/Bisa (Senna-S Tablet) 1 Ea Tab, 2 Each Oral Bedtime Active 09/13/2017 [facility] Fluconazole (Diflucan) 100 Mg Tablet, Mg Oral Daily Active 09/13/2017 [facility] Paroxetine Hcl (Paxil) 20 Mg Tablet, Daily Active 09/13/2017 [facility] Polyethylene Glycol 3350 17 Gm Powd.pack, 17 Gm Oral Daily Active 09/13/2017 [facility] Pravastatin Sodium 40 Mg Tablet, Daily Active 09/13/2017 [facility] Senna Fruit/Conc/Doc Sod/Bisa (Senna-S Tablet) 1 Ea Tab, 2 Each Oral Bedtime Active 09/13/2017 [facility] Myerbetriq , 50 Mg Daily Active 10/14/2015 [facility] Oxybutynin Chloride (Oxybutynin Chloride Er) 10 Mg Tab.osm.24, 10 Mg Oral Daily Active 05/23/2015 [facility] Vilazodone Hydrochloride (Viibryd) 40 Mg Tablet, Daily Active 06/03/2012 [facility] Amlodipine Besylate 5 Mg Tablet Daily Active [facility] Anastrozole 1 Mg Tablet Daily Active [facility] Bupropion Hcl (Bupropion Xl) 150 Mg Tab.er.24h Daily Active [facility] Clopidogrel Bisulfate (Plavix) [address] [facility] Gabapentin 300 Mg Capsule Bedtime Active [facility] Levothyroxine Sodium 150 Mcg Tablet Daily Active [facility] Pantoprazole Sodium (Protonix) [address] [facility] Paroxetine Hcl 20 Mg Tablet Bedtime Active [facility] Sitagliptin Phos/Metformin Hcl (Janumet 50-1,000 Mg Tablet) 1 Each Tablet Daily Active [facility] Amlodipine Besylate 5 Mg Tablet Daily Active [facility] Anastrozole 1 Mg Tablet Daily Active [facility] Bupropion Hcl (Bupropion Xl) 150 Mg Tab.er.24h Daily Active [facility] Gabapentin 300 Mg Capsule Bedtime Active [facility] Levothyroxine Sodium 150 Mcg Tablet Daily Active [facility] Pantoprazole Sodium (Protonix) [address] [facility] Paroxetine Hcl 20 Mg Tablet Bedtime Active [facility] Sitagliptin Phos/Metformin Hcl (Janumet 50-1,000 Mg Tablet) 1 Each Tablet Daily Active [facility] Pantoprazole Sodium 1 tablet Orally Active 40 mg Orally Once a day [facility] BuPROPion HCl 1 tablet Orally Active 300 Orally once a day [facility] Synthroid 1 tablet on an empty stomach in the morning Orally Active 175 MCG Orally Once a day [facility] Clopidogrel Bisulfate 1 tablet Orally Active 75 MG Orally Once a day [facility] Synthroid 1 tablet on an empty stomach in the morning Orally Active 175 MCG Orally Once a day [facility] Gabapentin 1 capsule Orally Active 300 MG Orally Once a day [facility] Donezepil HCl-10 mg one tablet orally Active 10 mg orally q day [facility] Cephalexin 1 capsule Orally Active 0 Orally every 6 hrs [facility] Megestrol Acetate 1 tablet Orally Active 0 Orally Twice a day [facility] Januvia as directed Orally Active 50 MG Orally [facility] NovoLog as directed Subcutaneous Active 100 UNIT/ML Subcutaneous [facility] Trazodone HCl 1 tablet at bedtime Orally Active 0 Orally Once a day [facility] Tylenol 1 tab Oral Active Oral [facility] Paroxetine HCl 1 tablet in the morning Orally Active 20 MG Orally Once a day [facility] NIFEdipine 1 capsule Orally Active 30 MG Orally Once a day [facility] Pravastatin Sodium 1 tablet Orally Active 40 MG Orally Once a day [facility] Pantoprazole Sodium TAKE 1 TABLET BY MOUTH EVERY DAY FOR ACID REFLUX Oral Active 40 MG Oral [facility] Accu-Chek Safe-T Pro Lancets as directed NA Active - [facility] Anastrozole 1 tablet Orally Active 1 MG Orally Once a day [facility] Memantine HCl 1 tablet Orally Active 10 mg Orally once a day [facility] Nebivolol HCl 1 tablet Orally Active 5 MG Orally Once a day [facility] BuPROPion HCl ER (XL) TAKE 1 TABLET BY MOUTH IN THE MORNING NA Active 300 MG [facility] Amlodipine Besylate TAKE 1 TABLET BY MOUTH EVERY DAY Oral Active 5 MG Oral [facility] Synthroid 1 tablet on an empty stomach in the morning Orally Active 137 MCG Orally Once a day [facility] Methocarbamol TAKE 1 TABLET BY MOUTH 3 TIMES A DAY NEEDED FOR MUSLE SPASM Oral Active 750 MG Oral [facility] Allergies, Adverse Reactions, Alerts Substance Category Reaction Severity Reaction type Status Date Reported Comments Source iodine ITCHING Mild Allergy to Substance Active 10/22/2018 [facility] Penicillin HIVES Mild Allergy to Substance Active 10/22/2018 [facility] Sucralfate NUMBNESS IN MOUTH AND FACE Mild Allergy to Substance Active 10/22/2018 [facility] Codeine ITCHING Mild Allergy to Substance Active 10/22/2018 [facility] Hydrocodone Unknown Allergy to Substance Active 10/22/2018 [facility] Ramipril COUGH Mild Allergy to Substance Active 10/22/2018 [facility] Penicillin G Benzathine Adverse Reaction Info Not Available Adverse Reaction Active 03/03/[address] [facility] Hydrocodone Bitartrate Adverse Reaction Info Not Available Adverse Reaction Active 03/03/[address] [facility] Codeine Phosphate Adverse Reaction Info Not Available Adverse Reaction Active 03/03/[address] [facility] Immunizations No Data Provided for This Section Results Order Name Results Value Reference Range Date Interpretation Comments Source Capillary blood glucose measurement by glucometer (mass/volume) 116 70 - 120 12/23/2018 [facility] Phosphorus measurement 3.8 2.3 - 4.7 12/21/2018 [facility] Serum or plasma magnesium measurement (mass/volume) 1.6 1.3 - 2.1 12/21/2018 [facility] Blood leukocytes automated count (number/volume) 4.63 4.8 - 10.8 12/21/2018 [facility] Blood erythrocytes automated count (number/volume) 3.72 3.6 - 5.1 12/21/2018 [facility] Blood hemoglobin measurement (moles/volume) 11.4 12.0 - 16.0 12/21/2018 [facility] Automated blood hematocrit (volume fraction) 33.4 34.2 - 44.1 12/21/2018 [facility] Automated erythrocyte mean corpuscular volume 89.8 81 - 99 12/21/2018 [facility] Automated erythrocyte mean corpuscular hemoglobin (mass per erythrocyte) 30.6 28 - 32 12/21/2018 [facility] Automated erythrocyte mean corpuscular hemoglobin concentration measurement (mass/volume) 34.1 31 - 35 12/21/2018 [facility] RDW BldCo-Rto 12.9 11.7 - 14.4 12/21/2018 [facility] Automated blood platelet count (count/volume) 172 140 - 360 12/21/2018 [facility] Automated blood segmented neutrophil count as percentage of total leukocytes 81.9 38.7 - 80.0 12/21/2018 [facility] Automated blood lymphocyte count as percentage ot total leukocytes 15.8 18.0 - 39.1 12/21/2018 [facility] Automated blood monocyte count as percentage of total leukocytes 1.5 4.4 - 11.3 12/21/2018 [facility] Automated blood eosinophil count as percentage of total leukocytes 0.0 0.0 - 6.0 12/21/2018 [facility] Automated blood basophil count as percentage of total leukocytes 0.2 0.0 - 1.0 12/21/2018 [facility] IM GRANULOCYTES % 0.6 0.0 - 1.0 12/21/2018 [facility] Automated blood neutrophil count 3.8 2.1 - 6.9 12/21/2018 [facility] Blood lymphocytes count (number/volume) 0.7 1.0 - 3.2 12/21/2018 [facility] Blood monocytes automated count (number/volume) 0.1 0.2 - 0.8 12/21/2018 [facility] Automated blood eosinophil count 0.0 0.0 - 0.4 12/21/2018 [facility] Automated blood basophil count (count/volume) 0.0 0.0 - 0.1 12/21/2018 [facility] Absolute Immature Granulocyte (auto 0.03 0 - 0.1 12/21/2018 [facility] Serum or plasma sodium measurement (moles/volume) 135 136 - 145 12/21/2018 [facility] Serum or plasma potassium measurement (moles/volume) 3.6 3.5 - 5.1 12/21/2018 [facility] Serum or plasma chloride measurement (moles/volume) 106 98 - 107 12/21/2018 [facility] Serum or plasma carbon dioxide, total measurement (moles/volume) 20 22 - 29 12/21/2018 [facility] Serum or plasma anion gap 12.6 8 - 16 12/21/2018 [facility] Serum or plasma urea nitrogen measurement (mass/volume) 17 7 - 26 12/21/2018 [facility] Serum or plasma creatinine measurement (mass/volume) 1.04 0.57 - 1.11 12/21/2018 [facility] Serum or plasma urea nitrogen/creatinine mass ratio 16 6 - 25 12/21/2018 [facility] Estimated glomerular filtration rate (GFR) determination 52 60 12/21/2018 [facility] Glucose measurement 209 74 - 118 12/21/2018 [facility] Serum or plasma calcium measurement (mass/volume) 9.2 8.4 - 10.2 12/21/2018 [facility] Blood cobalamin (vitamin B12) measurement (mass/volume) 370 213 - 816 12/21/2018 [facility] Serum or plasma folate measurement (mass/volume) 17.5 7.0 - 15.4 12/21/2018 [facility] Serum or plasma thyrotropin measurement by detection limit <=0.005 miu/l (units/volume) 0.037 0.350 - 4.940 12/21/2018 [facility] Urine color determination YELLOW YELLOW 12/20/2018 [facility] Urine clarity CLEAR CLEAR 12/20/2018 [facility] Specific gravity of Urine by Test strip 1.010 1.010 - 1.025 12/20/2018 [facility] Urine pH measurement by automated test strip 7 5 - 7 12/20/2018 [facility] Urine leukocyte esterase detection by dipstick TRACE NEGATIVE 12/20/2018 [facility] Urine nitrite detection NEGATIVE NEGATIVE 12/20/2018 [facility] Urine protein measurement by test strip (mass/volume) NEGATIVE NEGATIVE 12/20/2018 [facility] Urine glucose detection 1+ NEGATIVE 12/20/2018 [facility] Urine ketones detection by automated test strip NEGATIVE NEGATIVE 12/20/2018 [facility] Urine urobilinogen measurement by test strip (mass/volume) 0.2 0.2 - 1 12/20/2018 [facility] Urine total bilirubin measurement (mass/volume) NEGATIVE NEGATIVE 12/20/2018 [facility] Urine erythrocytes detection NEGATIVE NEGATIVE 12/20/2018 [facility] Automated urine sediment leukocyte count by microscopy (number/high power field) 0-5 0 - 5 12/20/2018 [facility] Erythrocytes detection in urine sediment by light microscopy NONE 0 - 5 12/20/2018 [facility] Bacteria detection in urine sediment by light microscopy MODERATE NONE 12/20/2018 [facility] Epithelial cells detection in urine sediment by light microscopy FEW NONE 12/20/2018 [facility] Calcium oxalate crystals detection in urine sediment by light microscopy RARE FEW 10/22/2018 [facility] Amorphous sediment detection in urine sediment by light microscopy FEW FEW 10/22/2018 [facility] Coarse granular casts detection in urine sediment by light microscopy 1-5 0 10/22/2018 [facility] Mucus detection in urine sediment by light microscopy FEW RARE 10/22/2018 [facility] Capillary blood glucose measurement by glucometer (mass/volume) Capillary blood glucose measurement by glucometer (mass/volume) 105 70 - 120 08/10/2018 [facility] Automated blood basophil count (count/volume) Automated blood basophil count (count/volume) 0.1 0.0 - 0.1 08/10/2018 [facility] Automated blood basophil count as percentage of total leukocytes Automated blood basophil count as percentage of total leukocytes 0.9 0.0 - 1.0 08/10/2018 [facility] Automated blood eosinophil count Automated blood eosinophil count 0.2 0.0 - 0.4 08/10/2018 [facility] Automated blood eosinophil count as percentage of total leukocytes Automated blood eosinophil count as percentage of total leukocytes 2.2 0.0 - 6.0 08/10/2018 [facility] Automated blood hematocrit (volume fraction) Automated blood hematocrit (volume fraction) 32.7 34.2 - 44.1 08/10/2018 [facility] Automated blood lymphocyte count as percentage ot total leukocytes Automated blood lymphocyte count as percentage ot total leukocytes 29.8 18.0 - 39.1 08/10/2018 [facility] Automated blood monocyte count as percentage of total leukocytes Automated blood monocyte count as percentage of total leukocytes 8.5 4.4 - 11.3 08/10/2018 [facility] Automated blood neutrophil count Automated blood neutrophil count 4.0 2.1 - 6.9 08/10/2018 [facility] Automated blood platelet count (count/volume) Automated blood platelet count (count/volume) 138 140 - 360 08/10/2018 [facility] Automated blood segmented neutrophil count as percentage of total leukocytes Automated blood segmented neutrophil count as percentage of total leukocytes 58.0 38.7 - 80.0 08/10/2018 [facility] Automated erythrocyte mean corpuscular hemoglobin (mass per erythrocyte) Automated erythrocyte mean corpuscular hemoglobin (mass per erythrocyte) 30.5 28 - 32 08/10/2018 [facility] Automated erythrocyte mean corpuscular hemoglobin concentration measurement (mass/volume) Automated erythrocyte mean corpuscular hemoglobin concentration measurement (mass/volume) 33.9 31 - 35 08/10/2018 [facility] Automated erythrocyte mean corpuscular volume Automated erythrocyte mean corpuscular volume 89.8 81 - 99 08/10/2018 [facility] Blood erythrocytes automated count (number/volume) Blood erythrocytes automated count (number/volume) 3.64 3.6 - 5.1 08/10/2018 [facility] Blood hemoglobin measurement (moles/volume) Blood hemoglobin measurement (moles/volume) 11.1 12.0 - 16.0 08/10/2018 [facility] Blood leukocytes automated count (number/volume) Blood leukocytes automated count (number/volume) 6.84 4.8 - 10.8 08/10/2018 [facility] Blood lymphocytes count (number/volume) Blood lymphocytes count (number/volume) 2.0 1.0 - 3.2 08/10/2018 [facility] Blood monocytes automated count (number/volume) Blood monocytes automated count (number/volume) 0.6 0.2 - 0.8 08/10/2018 [facility] Estimated glomerular filtration rate (GFR) determination Estimated glomerular filtration rate (GFR) determination 55 60 08/10/2018 [facility] Glucose measurement Glucose measurement 120 74 - 118 08/10/2018 [facility] Serum or plasma anion gap Serum or plasma anion gap 13.2 8 - 16 08/10/2018 [facility] Serum or plasma calcium measurement (mass/volume) Serum or plasma calcium measurement (mass/volume) 9.1 8.4 - 10.2 08/10/2018 [facility] Serum or plasma carbon dioxide, total measurement (moles/volume) Serum or plasma carbon dioxide, total measurement (moles/volume) 22 22 - 29 08/10/2018 [facility] Serum or plasma chloride measurement (moles/volume) Serum or plasma chloride measurement (moles/volume) 111 98 - 107 08/10/2018 [facility] Serum or plasma creatinine measurement (mass/volume) Serum or plasma creatinine measurement (mass/volume) 0.99 0.57 - 1.11 08/10/2018 [facility] Serum or plasma potassium measurement (moles/volume) Serum or plasma potassium measurement (moles/volume) 3.2 3.5 - 5.1 08/10/2018 [facility] Serum or plasma sodium measurement (moles/volume) Serum or plasma sodium measurement (moles/volume) 143 136 - 145 08/10/2018 [facility] Serum or plasma urea nitrogen measurement (mass/volume) Serum or plasma urea nitrogen measurement (mass/volume) 16 7 - 26 08/10/2018 [facility] Serum or plasma urea nitrogen/creatinine mass ratio Serum or plasma urea nitrogen/creatinine mass ratio 16 6 - 25 08/10/2018 [facility] Red Cell Distribution Width 13.8 11.7 - 14.4 08/10/2018 [facility] IM GRANULOCYTES % 0.6 0.0 - 1.0 08/10/2018 [facility] Absolute Immature Granulocyte (auto 0.04 0 - 0.1 08/10/2018 [facility] Serum or plasma magnesium measurement (mass/volume) Serum or plasma magnesium measurement (mass/volume) 1.2 1.3 - 2.1 08/09/2018 [facility] Serum or plasma total bilirubin measurement (mass/volume) 0.6 0.2 - 1.2 08/08/2018 [facility] Aspartate Amino Transf (AST/SGOT) 23 5 - 34 08/08/2018 [facility] Serum or plasma alanine aminotransferase measurement (enzymatic activity/volume) 17 0 - 55 08/08/2018 [facility] Serum or plasma protein measurement (mass/volume) 6.6 6.5 - 8.1 08/08/2018 [facility] Serum or plasma albumin measurement (mass/volume) 3.8 3.5 - 5.0 08/08/2018 [facility] Plasma globulin measurement (mass/volume) 2.8 2.3 - 3.5 08/08/2018 [facility] Serum or plasma albumin/globulin mass ratio 1.4 0.8 - 2.0 08/08/2018 [facility] Serum or plasma alkaline phosphatase measurement (enzymatic activity/volume) 89 40 - 150 08/08/2018 [facility] Plasma globulin measurement (mass/volume) Plasma globulin measurement (mass/volume) 2.8 2.3 - 3.5 08/08/2018 [facility] Serum or plasma alanine aminotransferase measurement (enzymatic activity/volume) Serum or plasma alanine aminotransferase measurement (enzymatic activity/volume) 17 0 - 55 08/08/2018 [facility] Serum or plasma albumin measurement (mass/volume) Serum or plasma albumin measurement (mass/volume) 3.8 3.5 - 5.0 08/08/2018 [facility] Serum or plasma albumin/globulin mass ratio Serum or plasma albumin/globulin mass ratio 1.4 0.8 - 2.0 08/08/2018 [facility] Serum or plasma alkaline phosphatase measurement (enzymatic activity/volume) Serum or plasma alkaline phosphatase measurement (enzymatic activity/volume) 89 40 - 150 08/08/2018 [facility] Serum or plasma protein measurement (mass/volume) Serum or plasma protein measurement (mass/volume) 6.6 6.5 - 8.1 08/08/2018 [facility] Serum or plasma total bilirubin measurement (mass/volume) Serum or plasma total bilirubin measurement (mass/volume) 0.6 0.2 - 1.2 08/08/2018 [facility] Aspartate Amino Transf (AST/SGOT) 23 5 - 34 08/08/2018 [facility] Hemoglobin A1c Percent 5.6 4.0 - 7.0 08/05/2018 [facility] Serum or plasma triglyceride measurement (mass/volume) 192 0 - 149 08/05/2018 [facility] Serum or plasma cholesterol measurement (mass/volume) 150 0 - 199 08/05/2018 [facility] Serum or plasma cholesterol in LDL measurement (mass/volume) 77 60 - 130 08/05/2018 [facility] Serum or plasma cholesterol in HDL measurement (mass/volume) 35 40 - 60 08/05/2018 [facility] Serum or plasma total cholesterol/cholesterol in HDL mass ratio 4.3 3.0 - 3.6 08/05/2018 [facility] Serum or plasma cholesterol in HDL measurement (mass/volume) Serum or plasma cholesterol in HDL measurement (mass/volume) 35 40 - 60 08/05/2018 [facility] Serum or plasma cholesterol in LDL measurement (mass/volume) Serum or plasma cholesterol in LDL measurement (mass/volume) 77 60 - 130 08/05/2018 [facility] Serum or plasma cholesterol measurement (mass/volume) Serum or plasma cholesterol measurement (mass/volume) 150 0 - 199 08/05/2018 [facility] Serum or plasma thyrotropin measurement by detection limit <=0.005 miu/l (units/volume) Serum or plasma thyrotropin measurement by detection limit <=0.005 miu/l (units/volume) 0.833 0.350 - 4.940 08/05/2018 [facility] Serum or plasma total cholesterol/cholesterol in HDL mass ratio Serum or plasma total cholesterol/cholesterol in HDL mass ratio 4.3 3.0 - 3.6 08/05/2018 [facility] Serum or plasma triglyceride measurement (mass/volume) Serum or plasma triglyceride measurement (mass/volume) 192 0 - 149 08/05/2018 [facility] Hemoglobin A1c Percent 5.6 4.0 - 7.0 08/05/2018 [facility] Automated urine sediment leukocyte count by microscopy (number/high power field) Automated urine sediment leukocyte count by microscopy (number/high power field) <10 0 - 5 08/04/2018 [facility] Bacteria detection in urine sediment by light microscopy Bacteria detection in urine sediment by light microscopy MANY NONE 08/04/2018 [facility] Epithelial cells detection in urine sediment by light microscopy Epithelial cells detection in urine sediment by light microscopy NONE NONE 08/04/2018 [facility] Erythrocytes detection in urine sediment by light microscopy Erythrocytes detection in urine sediment by light microscopy NONE 0 - 5 08/04/2018 [facility] Specific gravity of Urine by Test strip Specific gravity of Urine by Test strip 1.030 1.010 - 1.025 08/04/2018 [facility] Urine clarity Urine clarity SL CLOUDY CLEAR 08/04/2018 [facility] Urine color determination Urine color determination YELLOW YELLOW 08/04/2018 [facility] Urine erythrocytes detection Urine erythrocytes detection NEGATIVE NEGATIVE 08/04/2018 [facility] Urine glucose detection Urine glucose detection NEGATIVE NEGATIVE 08/04/2018 [facility] Urine ketones detection by automated test strip Urine ketones detection by automated test strip TRACE NEGATIVE 08/04/2018 [facility] Urine leukocyte esterase detection by dipstick Urine leukocyte esterase detection by dipstick 1+ NEGATIVE 08/04/2018 [facility] Urine nitrite detection Urine nitrite detection NEGATIVE NEGATIVE 08/04/2018 [facility] Urine pH measurement by automated test strip Urine pH measurement by automated test strip 6 5 - 7 08/04/2018 [facility] Urine protein measurement by test strip (mass/volume) Urine protein measurement by test strip (mass/volume) NEGATIVE NEGATIVE 08/04/2018 [facility] Urine total bilirubin measurement (mass/volume) Urine total bilirubin measurement (mass/volume) NEGATIVE NEGATIVE 08/04/2018 [facility] Urine urobilinogen measurement by test strip (mass/volume) Urine urobilinogen measurement by test strip (mass/volume) 0.2 0.2 - 1 08/04/2018 [facility] Prothrombin time (PT) in platelet poor plasma by coagulation assay 13.0 11.9 - 14.5 08/04/2018 [facility] INR in Platelet poor plasma by Coagulation assay 0.90 08/04/2018 [facility] Activated partial thromboplastin time (aPTT) in platelet poor plasma bycoagulation assay 24.0 23.8 - 35.5 08/04/2018 [facility] Serum or plasma creatine kinase measurement (enzymatic activity/volume) 65 29 - 168 08/04/2018 [facility] Serum or plasma creatine kinase MB measurement (mass/volume) 1.60 0 - 5.0 08/04/2018 [facility] Troponin I measurement by highly sensitive enzyme immunoassay 0.004 0 - 0.300 08/04/2018 [facility] Serum or plasma lipase measurement (enzymatic activity/volume) 21 8 - 78 08/04/2018 [facility] Activated partial thromboplastin time (aPTT) in platelet poor plasma bycoagulation assay Activated partial thromboplastin time (aPTT) in platelet poor plasma bycoagulation assay 24.0 23.8 - 35.5 08/04/2018 [facility] INR in Platelet poor plasma by Coagulation assay INR in Platelet poor plasma by Coagulation assay 0.90 08/04/2018 [facility] Prothrombin time (PT) in platelet poor plasma by coagulation assay Prothrombin time (PT) in platelet poor plasma by coagulation assay 13.0 11.9 - 14.5 08/04/2018 [facility] Serum or plasma creatine kinase MB measurement (mass/volume) Serum or plasma creatine kinase MB measurement (mass/volume) 1.60 0 - 5.0 08/04/2018 [facility] Serum or plasma creatine kinase measurement (enzymatic activity/volume) Serum or plasma creatine kinase measurement (enzymatic activity/volume) 65 29 - 168 08/04/2018 [facility] Serum or plasma lipase measurement (enzymatic activity/volume) Serum or plasma lipase measurement (enzymatic activity/volume) 21 8 - 78 08/04/2018 [facility] Troponin I measurement by highly sensitive enzyme immunoassay Troponin I measurement by highly sensitive enzyme immunoassay 0.004 0 - 0.300 08/04/2018 [facility] Bacterial urine culture Urine Culture [facility] Pathology Reports No Data Provided for This Section Diagnostic Reports No Data Provided for This Section Consultation Notes No Data Provided for This Section Discharge Summaries No Data Provided for This Section History and Physicals No Data Provided for This Section Vital Signs Vital Sign Value Date Comments Source Systolic (mm Hg) 118 03/03/2019 [facility] Height 68 03/03/2019 [facility] Heart Rate 78 03/03/2019 [facility] Diastolic (mm Hg) 72 03/03/2019 [facility] Weight 141 02/16/2019 [facility] Height 68 02/16/2019 [facility] Heart Rate 59 02/16/2019 [facility] Diastolic (mm Hg) 66 02/16/2019 [facility] Systolic (mm Hg) 112 02/16/2019 [facility] Weight 142 12/26/2018 [facility] Height 68 12/26/2018 [facility] Heart Rate 59 12/26/2018 [facility] Diastolic (mm Hg) 64 12/26/2018 [facility] Systolic (mm Hg) 120 12/26/2018 [facility] Weight 151 10/27/2018 [facility] Height 68 10/27/2018 [facility] Heart Rate 73 10/27/2018 [facility] Diastolic (mm Hg) 68 10/27/2018 [facility] Systolic (mm Hg) 124 10/27/2018 [facility] Encounters Location Location Details Encounter Type Encounter Number Reason For Visit Attending Provider ADM Date DC Date Status Source Discharged Inpatient [id number] SUSANA NG MD 08/05/2018 08/10/2018 [facility] Departed Emergency Room [id number] CASEY BOYD MD 10/22/2018 10/22/2018 [facility] Discharged Inpatient [id number] HERNANDEZ VELASCO MD 12/20/2018 12/23/2018 [facility] Procedures Procedure Code Date Perfomer Comments Source Computed tomography of abdomen and pelvis with contrast [id number] 12/21/2018 [facility] Computed tomography of brain without radiopaque contrast [id number] 08/04/[address] [facility] Computed tomography of cervical spine without contrast [id number] 08/04/[address] [facility] Assessment and Plan No Data Provided for This Section Plan of Care Plan of Care Date Source Discharge Date 12/23/18 4:25pm Disposition HOME, SELF-CARE Instructions/Education Provided Urinary Tract Infection - Women Prescriptions See Medication Section Additional Instructions/Education FOLLOW UP WITH DR OCASIO NEXT WEEK FOR URODYAMIC STUDY. 12/23/2018 [facility] Discharge Date 08/10/18 7:15pm Disposition TRANSFER JAIL Prescriptions See Medication Section 08/10/2018 [facility] Social History Social History Date Source Social History Problem Response Recorded Date/Time Onset Date Status Hx Psychiatric Problems No 09/16/2017 10:49pm Not Applicable Not Applicable Hx Eating Disorder No 09/16/2017 10:49pm Not Applicable Not Applicable Hx Substance Use Disorder No 09/16/2017 10:49pm Not Applicable Not Applicable Hx Depression Yes 09/16/2017 10:49pm Not Applicable Not Applicable Hx Alcohol Use No 09/16/2017 10:49pm Not Applicable Not Applicable Hx Substance Use Treatment No 09/16/2017 10:49pm Not Applicable Not Applicable Hx Physical Abuse No 09/16/2017 10:49pm Not Applicable Not Applicable 12/23/2018 [facility] Family History No Data Provided for This Section Advance Directives Order Name Results Value Date Source Advance Directives Advance Directives Directive Response Recorded Date/Time Does the patient have an advance directive? No 12/19/18 9:57pm If yes, is advance directive on file with [facility]? No 12/19/18 9:57pm If not on file with [facility] will patient provide a copy? No 12/19/18 9:57pm Do you have a Directive to Physician? No 12/19/18 7:22pm Do you have a Medical Power of Brake Press Operator? Yes 12/19/18 7:22pm Do you have an out of hospital Do Not Resuscitate Order? No 12/19/18 7:22pm Do you have any special needs we should be aware of? No 12/19/18 7:22pm Do you have a support person here with you today? Yes 12/19/18 7:22pm Did patient receive Notice of Privacy Practices? Yes 12/19/18 7:22pm Did patient receive patient rights and responsibilities? Yes 02/18/19 7:22pm 12/23/2018 [facility] Advance Directives Advance Directives Directive Response Recorded Date/Time Does the patient have an advance directive? No 08/05/18 2:39am If yes, is advance directive on file with [facility]? No 08/05/18 2:39am If not on file with [facility] will patient provide a copy? No 08/05/18 2:39am Do you have a Directive to Physician? No 08/04/18 4:25pm Do you have a Medical Power of Brake Press Operator? No 08/04/18 4:25pm Do you have an out of hospital Do Not Resuscitate Order? No 08/04/18 4:25pm Do you have any special needs we should be aware of? No 08/04/18 4:25pm Do you have a support person here with you today? Yes 08/04/18 4:25pm Did patient receive Notice of Privacy Practices? Yes 08/04/18 4:25pm Did patient receive patient rights and responsibilities? Yes 08/04/18 4:25pm 08/10/2018 [facility] Functional Status No Data Provided for This Section
--- OUTSIDE RECORDS SUMMARY | 2019-05-16 13:29 | XMS REPORT ---
Author Author Mayuri Fajardo [facility] eClinicalWorks Address Unknown Phone Unavailable Care Team Providers Care Footwear Sales Representative Name Role Phone Mayuri Fajardo Unavailable Allergies, Adverse Reactions, Alerts Substance Reaction Event Type Penicillin G Benzathine Info Not Available Drug Allergy Hydrocodone Bitartrate Info Not Available Drug Allergy Codeine Phosphate Info Not Available Drug Allergy Problems Problem Type Condition Code Onset Dates Condition Status Problem 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 Problem Essential hypertension I10 Active 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 Active Problem Dementia without behavioral disturbance, unspecified dementia type F03.90 Active Problem Stage 3 chronic kidney disease N18.3 Active Problem Gastroesophageal reflux disease, esophagitis presence not specified K21.9 Active Problem Depression, unspecified depression type F32.9 Active Problem TIA (transient ischemic attack) G45.9 Active Problem Acquired hypothyroidism E03.9 Active Problem Hyperlipidemia, unspecified hyperlipidemia type E78.5 Active Assessment Dizziness R42 Active Assessment 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 Assessment Leukocytosis, unspecified type D72.829 Active Assessment Dislocation of left shoulder joint, subsequent encounter S43.005D Active Assessment Dementia without behavioral disturbance, unspecified dementia type F03.90 Active Assessment Abnormal urine odor R82.90 Active Problem Frequent urinary incontinence N39.498 Active Medications Medication Code System Code Instructions Start Date End Date Status Dosage Amlodipine Besylate [facility] 42481349392 5 MG Oral Active TAKE 1 TABLET BY MOUTH EVERY DAY Clopidogrel Bisulfate ND 30433527621 75 MG Orally Once a day Active 1 tablet Pantoprazole Sodium ND 98228952162 40 MG Oral Active TAKE 1 TABLET BY MOUTH EVERY DAY FOR ACID REFLUX Accu-Chek Safe-T Pro Lancets [facility] 25639572390 - Active as directed Donezepil HCl-10 mg NDC 0 10 mg orally q day Active one tablet Anastrozole ND 73764986378 1 MG Orally Once a day Active 1 tablet Memantine HCl ND 74273939780 10 mg Orally once a day Active 1 tablet Paroxetine HCl [facility] 86230504778 20 MG Orally Once a day Active 1 tablet in the morning Synthroid [facility] 34416364252 137 MCG Orally Once a day Active 1 tablet on an empty stomach in the morning Methocarbamol [facility] 50053033424 750 MG Oral Active TAKE 1 TABLET BY MOUTH 3 TIMES A DAY NEEDED FOR MUSLE SPASM Janumet [facility] 19278421662 50-1000 MG Orally daily February 16, 2019 Active 1 tablet with meals Pravastatin Sodium [facility] 19153856648 40 MG Orally Once a day Active 1 tablet Gabapentin [facility] 66058588774 300 MG Orally Once a day Active 1 capsule Cipro [facility] 19338140652 500 mg Orally every 12 hrs March 03, 2019 March 13, 2019 Active 1 tablet BuPROPion HCl ER (XL) [facility] 06876699853 300 MG Active TAKE 1 TABLET BY MOUTH IN THE MORNING Vital Signs Date/Time: March 03, 2019 Blood Pressure Systolic 118 mm Hg Weight wcb lbs Height 68 in Cardiac Monitoring Heart Rate 78 /min Blood Pressure Diastolic 72 mm Hg Results Name Result Date Reference Range Unit Abnormality Flag GLUCOSE FINGER STICK ----GLUCOSE 121 20190303 CBC ----Platelets 265 20190303 ----NEUTROPHILS MID-0.7,GRA-6.1 20190303 ----MCHC 33.1 20190303 ----MCH 30.9 20190303 ----MCV 93.5 20190303 ----WBC 9.2 20190303 ----RDW 12.7 20190303 ----RBC 4.01 20190303 ----Hemoglobin 12.4 20190303 ----Hematocrit 37.5 20190303 URINE AUTO W/O SCOPE ----Bili SMALL+ 20190303 ----Glucose NEG 20190303 ----Urobilinogen 0.2 20190303 ----Ketones NEG 20190303 ----Spec Inman 1.020 20190303 ----pH 6.0 20190303 ----Turbidity CLOUDY 20190303 ----Protein 30+ 20190303 ----Blood MOD++ 20190303 ----Leuk Est MOD++ 20190303 ----Nitrite NEG 20190303 ----Color YELLOW 20190303 Summary Purpose eClinicalWorks Submission
--- OUTSIDE RECORDS SUMMARY | 2019-05-16 13:29 | XMS REPORT ---
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 Assessment Itching L29.9 Active Problem Hyperlipidemia, unspecified hyperlipidemia type E78.5 Active Problem Depression, unspecified depression type F32.9 Active Problem Acquired hypothyroidism E03.9 Active Problem Essential hypertension I10 Active Problem half-way current use of insulin Z79.4 Active Problem Frequent urinary incontinence N39.498 Active Problem TIA (transient ischemic attack) G45.9 Active Medications Medication Code System Code Instructions Start Date End Date Status Dosage Pravastatin Sodium [facility] 83965970971 40 MG Orally Once a day Active 1 tablet Gabapentin [facility] 64048197977 300 MG Orally Once a day Active 1 capsule Trazodone HCl [facility] [address]-75 0 Orally Once a day Active 1 tablet at bedtime BuPROPion HCl [facility] [address]-45 300 Orally once a day Active 1 tablet Memantine HCl ND 90499793694 10 mg Orally once a day Active 1 tablet Januvia [facility] 92258846552 50 MG Orally Active as directed Nebivolol HCl [facility] [address]-86 5 MG Orally Once a day Active 1 tablet NIFEdipine [facility] [address]-45 30 MG Orally Once a day Active 1 capsule BuPROPion HCl ER (XL) [facility] 31829489397 300 MG Active TAKE 1 TABLET BY MOUTH [place] [address]-03 0 Orally every 6 hrs Active 1 capsule Paroxetine HCl [facility] 74897441119 20 MG Orally Once a day Active 1 tablet in the morning Accu-Chek Safe-T Pro Lancets NDC 22992919323 - Active as directed NovoLog [facility] 40842477362 100 UNIT/ML Subcutaneous Active as directed Clopidogrel Bisulfate [facility] 56114671499 75 MG Orally Once a day Active 1 tablet Megestrol Acetate [facility] [address]-04 0 Orally Twice a day Active 1 tablet Synthroid [facility] 30329314333 175 MCG Orally Once a day Active 1 tablet on an empty stomach in the morning Donezepil HCl-10 mg NDC 0 10 mg orally q day Active one tablet Anastrozole [facility] 75615547335 1 MG Orally Once a day Active 1 tablet Tylenol NDC 0 Oral Active 1 tab Vital Signs Date/Time: Dec 26, 2018 BMI 21.59 Index Weight 142 lbs Height 68 in Cardiac Monitoring Heart Rate 59 /min Blood Pressure Diastolic 64 mm Hg Blood Pressure Systolic 120 mm Hg Results Name Result Date Reference Range Unit Abnormality Flag URINE AUTO W/O SCOPE ----Spec [place] 1.020 20181226 ----Turbidity CLOUDY 20181226 ----Glucose NEG 20181226 ----Ketones NEG 20181226 ----Blood TRACE 20181226 ----Bili MOD++ 20181226 ----Color YELLOW 20181226 ----pH 6.0 20181226 ----Leuk Est LARGE+++ 20181226 ----Nitrite NEG 20181226 ----Urobilinogen 0.2 20181226 ----Protein TRACE 20181226 Summary Purpose eClinicalWorks Submission
--- OUTSIDE RECORDS SUMMARY | 2019-05-16 13:29 | XMS REPORT ---
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 Problem Hyperlipidemia, unspecified hyperlipidemia type E78.5 Active Problem Depression, unspecified depression type F32.9 Active Problem Acquired hypothyroidism E03.9 Active Problem Essential hypertension I10 Active Problem senior living current use of insulin Z79.4 Active Problem Frequent urinary incontinence N39.498 Active Problem TIA (transient ischemic attack) G45.9 Active Medications Medication Code System Code Instructions Start Date End Date Status Dosage Clopidogrel Bisulfate [facility] 58976131670 75 MG Orally Once a day Active 1 tablet Synthroid ND 03749532397 175 MCG Orally Once a day Active 1 tablet on an empty stomach in the morning Gabapentin ND 57138943476 300 MG Orally Once a day Active 1 capsule Results No Known Results Summary Purpose eClinicalWorks Submission
--- OUTSIDE RECORDS SUMMARY | 2019-05-16 13:34 | XMS REPORT ---
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 Problem Hyperlipidemia, unspecified hyperlipidemia type E78.5 Active Problem Depression, unspecified depression type F32.9 Active Problem Acquired hypothyroidism E03.9 Active Problem Essential hypertension I10 Active Problem intermodal dispatcher current use of insulin Z79.4 Active Problem Frequent urinary incontinence N39.498 Active Problem TIA (transient ischemic attack) G45.9 Active Medications Medication Code System Code Instructions Start Date End Date Status Dosage Synthroid [facility] 32754987556 175 MCG Orally Once a day Active 1 tablet on an empty stomach in the morning Results No Known Results Summary Purpose eClinicalWorks Submission
--- OUTSIDE RECORDS SUMMARY | 2019-05-16 13:35 | XMS REPORT ---
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
--- OUTSIDE RECORDS SUMMARY | 2019-05-16 13:35 | XMS REPORT ---
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
--- OUTSIDE RECORDS SUMMARY | 2019-05-16 13:35 | XMS REPORT ---
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
--- OUTSIDE RECORDS SUMMARY | 2019-05-16 13:35 | XMS REPORT ---
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 Problem Essential hypertension I10 Active Problem [employer] current use of insulin Z79.4 Active Problem Frequent urinary incontinence N39.498 Active Problem Dementia without behavioral disturbance, unspecified dementia type F03.90 Active Problem Stage 3 chronic kidney disease N18.3 Active Problem Gastroesophageal reflux disease, esophagitis presence not specified K21.9 Active Problem Depression, unspecified depression type F32.9 Active Problem TIA (transient ischemic attack) G45.9 Active Problem Acquired hypothyroidism E03.9 Active Problem Hyperlipidemia, unspecified hyperlipidemia type E78.5 Active Medications Medication Code System Code Instructions Start Date End Date Status Dosage Synthroid [facility] 27131709011 175 MCG Orally Once a day Active 1 tablet on an empty stomach in the morning Results No Known Results Summary Purpose eClinicalWorks Submission
--- OUTSIDE RECORDS SUMMARY | 2019-05-16 13:36 | XMS REPORT ---
Author Author [facility] Address Unknown Phone Unavailable Care Team Providers Care Traffic Investigator Name Role Phone HERNANDEZ VELASCO Unavailable Unavailable Deepa CARMICHAEL Unavailable Unavailable SWEET, A LAIRD Unavailable Unavailable Problems This patient has no known problems. Allergies, Adverse Reactions, Alerts This patient has no known allergies or adverse reactions. Medications This patient has no known medications. Encounters Start Date/Time End Date/Time Encounter Type Admission Type Attending Clinicians Care Facility Care Department Encounter ID 2019-02-26 20:21:00 2019-02-26 20:21:00 Emergency E [id number] Results Test Description Test Time Test Comments Text Results Atomic Results Result Comments CT ABDOMEN/PELVIS W 2018-12-21 02:35:00 [place] [address] Patient Name: JOSÉ LUIS GILES MR #: [id number] : 1940 Age/Sex: 78/F Req #: [id number] Adm Physician: HERNANDEZ VELASCO MD Ordered by: HERNANDEZ VELASCO MD Report #: [id number] [facility] Room/Bed: [facility] Procedure: [id number] CT/CT ABDOMEN/PELVIS W Exam Date: Exam Time: REPORT STATUS: Signed EXAM: CT Abdomen and Pelvis WITH contrast INDICATION: PAIN COMPARISON: CT dated 08/29/2014 TECHNIQUE: Abdomen and pelvis were scanned utilizing a multidetector helical scanner from the lung base to the pubic symphysis after administration of IV contrast. Coronal and sagittal reformations were obtained. Dose modulation, iterative reconstruction, and/or weight based adjustment of the mA/kV was utilized to reduce the radiation dose to as low as reasonably achievable. Routine protocol was performed. Scan was performed when during portal venous phase. IV CONTRAST: 100 mL of Isovue-370 ORAL CONTRAST: Administered. COMPLICATIONS: None RADIATION DOSE: Total DLP: 209.14 mGy*cm Estimated effective dose: (DLP x 0.015 x size factor) mSv CTDIvol has been reviewed. It is below the limits set by the Radiation Protocol Committee (RPC). FINDINGS: LINES and TUBES: None. LOWER THORAX: Trace pericardial fluid. Otherwise, unremarkable. HEPATOBILIARY: No focal hepatic lesions. No biliary ductal dilation. GALLBLADDER: Surgically absent. SPLEEN: No splenomegaly. PANCREAS: Atrophic. No focal masses or ductal dilatation. ADRENALS: Questionable 1.6 x 1 cm left adrenal nodule versus thickening. No right adrenal nodule. KIDNEYS/URETERS: Kidneys enhance symmetrically. No hydronephrosis. No cystic or solid mass lesions. No stones. GI TRACT: No abnormal distention, wall thickening, or evidence of bowel obstruction. Sigmoid diverticulosis without evidence of diverticulitis. Appendix is not visualized. PELVIC ORGANS/BLADDER: Hysterectomy. Bladder is unremarkable. LYMPH NODES: No lymphadenopathy. VESSELS: There is moderate atherosclerotic disease in the aorta and major arterial branches. PERITONEUM / RETROPERITONEUM: No free air or fluid. BONES: Unremarkable. SOFT TISSUES: Unremarkable. IMPRESSION: 1. No acute inflammatory process in the abdomen/pelvis. 2. Sigmoid diverticulosis without evidence of diverticulitis. 3. Questionable indeterminate left adrenal nodule. Signed by: Dr. Daniel Huerta MD on 12/21/2018 3:25 AM Dictated By: DANIEL HUERTA MD 4 Transcribed By: SHAWN on 12/21/18324 COPY TO: HERNANDEZ VELASCO MD CHEST SINGLE (PORTABLE) 2018-08-04 14:35:00 [place] [address] Patient Name: JOSÉ LUIS GILES MR #: [id number] : 1940 Age/Sex: 78/F Req #: [id number] Adm Physician: Ordered by: YANET PATRICIO ADMINISTRATOR OF HOME HEALTH Report #: [id number] Location: ER Room/Bed: Procedure: [id number] DX/CHEST SINGLE (PORTABLE) Exam Date: 08/04/18 Exam [...] 2:38 PM Dictated By: ARTEM HOOKS MD 1438 Transcribed By: SHAWN on 08/04/18 1438 COPY TO: YANET PATRICIO ADMINISTRATOR OF HOME HEALTH CT CERVICAL SPINE WO 2018-08-04 14:26:00 [place] [address] Patient Name: JOSÉ LUIS GILES MR #: [id number] : 1940 Age/Sex: 78/F Req #: [id number] Adm Physician: Ordered by: NICK CARMICHAEL MD Report #: [id number] Location: ER Room/Bed: Procedure: [id number] CT/CT CERVICAL SPINE WO Exam Date: 08/04/18 [...] 2:32 PM Dictated By: PAULA SOSA MD 31 Transcribed By: SHAWN on 08/04/181431 COPY TO: NICK CARMICHAEL MD CT BRAIN WO 2018-08-04 14:26:00 [place] [address] Patient Name: JOSÉ LUIS GILES MR #: [id number] : 1940 Age/Sex: 78/F Req #: [id number] Adm Physician: Ordered by: YANET PATRICIO NP Report #: [id number] Location: ER Room/Bed: Procedure: [id number] CT/CT BRAIN WO Exam Date: 08/04/18 Exam [...] By: SHAWN on 08/04/18 1432 COPY TO: YANET PATRICIO ADMINISTRATOR OF HOME HEALTH ABDOMEN ACUTE SERIES W/PA CXR [place] [address] Patient Name: JOSÉ LUIS GILES MR #: [id number] : 1940 Age/Sex: 77/F Req #: [id number] Adm Physician: Ordered by: ATA PARK NP Report #: [id number] Location: ER Room/Bed: Procedure: [id number] DX/ABDOMEN ACUTE SERIES W/PA CXR Exam Date: [...] due to constipation. Signed by: Dr. Teo Leo M.D. on 09/16/2017 7:25 PM Dictated By: TEO LEO MD, MD 24 Transcribed By: SHAWN on 09/16/171924 COPY TO: ATA PARK NP
--- OUTSIDE RECORDS SUMMARY | 2019-05-16 13:36 | XMS REPORT ---
Author Author Mayuri Fajardo [facility] eClinicalWorks Address Unknown Phone Unavailable Care Team Providers Care Gas Meter Installer Name Role Phone Mayuri Fajardo Unavailable Allergies, Adverse Reactions, Alerts Substance Reaction Event Type Penicillin G Benzathine Info Not Available Drug Allergy Hydrocodone Bitartrate Info Not Available Drug Allergy Codeine Phosphate Info Not Available Drug Allergy Problems Problem Type Condition Code Onset Dates Condition Status Assessment Stage 3 chronic kidney disease N18.3 Active Assessment Gastroesophageal reflux disease, esophagitis presence not specified K21.9 Active Assessment Dementia without behavioral disturbance, unspecified dementia type F03.90 Active Problem Frequent urinary incontinence N39.498 Active Assessment Non-intractable vomiting with nausea, unspecified vomiting type R11.2 Active Problem 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 Problem Essential hypertension I10 Active 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 Active Problem Dementia without behavioral disturbance, unspecified dementia type F03.90 Active Problem Stage 3 chronic kidney disease N18.3 Active Assessment Essential hypertension I10 Active Assessment Hyperlipidemia, unspecified hyperlipidemia type E78.5 Active Problem Gastroesophageal reflux disease, esophagitis presence not specified K21.9 Active Assessment Acquired hypothyroidism E03.9 Active Problem Depression, unspecified depression type F32.9 Active Problem TIA (transient ischemic attack) G45.9 Active Problem Acquired hypothyroidism E03.9 Active Problem Hyperlipidemia, unspecified hyperlipidemia type E78.5 Active Assessment Depression, unspecified depression type F32.9 Active Assessment Frequent urinary incontinence N39.498 Active Assessment 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 Assessment TIA (transient ischemic attack) G45.9 Active Assessment Screening for colon cancer Z12.11 Active Assessment Encntr for general adult medical exam w/o abnormal findings Z00.00 Active Assessment Asymptomatic postmenopausal estrogen deficiency Z78.0 Active Assessment Screening for breast cancer Z12.39 Active Medications Medication Code System Code Instructions Start Date End Date Status Dosage Synthroid NDC 62035238337 137 MCG Orally Once a day Active 1 tablet on an empty stomach in the morning Gabapentin NDC 71533718815 300 MG Orally Once a day Active 1 capsule Pravastatin Sodium [facility] 21062170873 40 MG Orally Once a day Active 1 tablet Amlodipine Besylate [facility] 29806740916 5 MG Oral Active TAKE 1 TABLET BY MOUTH EVERY DAY Memantine HCl [facility] 94994619811 10 mg Orally once a day Active 1 tablet Janumet [facility] 54377147601 50-1000 MG Orally daily February 16, 2019 Active 1 tablet with meals Trazodone HCl [facility] [address]-48 0 Orally Once a day Active 1 tablet at bedtime Donezepil HCl-10 mg NDC 0 10 mg orally q day Active one tablet NovoLog [facility] 80183422365 100 UNIT/ML Subcutaneous Active as directed Clopidogrel Bisulfate [facility] 44482446747 75 MG Orally Once a day Active 1 tablet Pantoprazole Sodium [facility] 95887816370 40 MG Oral Active TAKE 1 TABLET BY MOUTH EVERY DAY FOR ACID REFLUX Januvia [facility] 86597254016 50 MG Orally Active as directed NIFEdipine [facility] [address]-96 30 MG Orally Once a day Active 1 capsule Paroxetine HCl [facility] 53275339008 20 MG Orally Once a day Active 1 tablet in the morning Accu-Chek Safe-T Pro Lancets [facility] 15271180880 - Active as directed Anastrozole [facility] 18198639166 1 MG Orally Once a day Active 1 tablet Tylenol ND 0 Oral Active 1 tab Nebivolol HCl [facility] [address]-71 5 MG Orally Once a day Active 1 tablet BuPROPion HCl ER (XL) [facility] 95964413549 300 MG Active TAKE 1 TABLET BY MOUTH IN THE MORNING Methocarbamol [facility] 28072666608 750 MG Oral Active TAKE 1 TABLET BY MOUTH 3 TIMES A DAY NEEDED FOR MUSLE SPASM Megestrol Acetate [facility] [address]-00 0 Orally Twice a day Active 1 tablet Vital Signs Date/Time: February 16, 2019 BMI 21.44 Index Weight 141 lbs Height 68 in Cardiac Monitoring Heart Rate 59 /min Blood Pressure Diastolic 66 mm Hg Blood Pressure Systolic 112 mm Hg Results Name Result Date Reference Range Unit Abnormality Flag EKG Chest 2 views- Xray Summary Purpose eClinicalWorks Submission
--- NOTE | 2019-05-16 14:32 | Diagnostic Imaging Report ---
CT BRAIN [facility] HISTORY: Fall COMPARISON: Head CT 08/04/2018 Technique: Noncontrast axial scans were obtained from skull base to the vertex. Coronal and sagittal reconstructions obtained from the axial data. One or more of the following dose reduction techniques were used: Automated exposure control, adjustment of the mA and/or kV according to patient size, and/or utilization of iterative reconstruction technique. Beam hardening artifacts obscure some details. DISCUSSION: Scalp/Skull: No calvarial fracture. Brain sulci: Mildly prominent. Ventricles: Compensatory dilatation. Extra-axial spaces: No masses or fluid collections. Carotid and vertebral artery calcifications are present. Parenchyma: Mild to moderate bilateral deep white matter hypodensity is likely chronic microvascular ischemic change. Otherwise, no masses, hemorrhage, or large vascular territory acute infarct. Dural sinuses: No abnormal densities. Sellar/Suprasellar region: Intact. Skull base: Prominent atlantoaxial arthrosis. Incidental findings: Both ocular lenses are thinned. IMPRESSION: 1. No acute intracranial abnormalities. 2. Mild to moderate supratentorial chronic microvascular ischemic change. Mild generalized cerebral volume loss. Signed by: Dr. Nagi High M.D. on 05/16/2019 2:28 PM
--- NOTE | 2019-05-16 14:39 | Diagnostic Imaging Report ---
Right Shoulder - 3 Views HISTORY: Trauma, pain COMPARISON: None FINDINGS: No acute fracture or dislocation. Mild acromioclavicular and glenohumeral degenerative changes. The visualized portions of the right lung are clear. IMPRESSION: No acute osseous injury. Signed by: Dony Bella MD on 05/16/2019 2:36 PM
[2019-05-16 14:53] VITALS: BP 125/64
== END 2019-05-16 15:00 | disposition home or self-care (01) ==
LOC: FSED 13:20
DX: S40.011A Contusion of right shoulder, initial encounter (principal); S00.12XA Contusion of left eyelid and periocular area, initial encounter; G30.9 Alzheimer's disease, unspecified; F02.80 Dementia in other diseases classified elsewhere, unspecified severity, without behavioral disturbance, psychotic disturbance, mood disturbance, and anxiety; E11.40 Type 2 diabetes mellitus with diabetic neuropathy, unspecified; I10 Essential (primary) hypertension; Z86.73 Personal history of transient ischemic attack (TIA), and cerebral infarction without residual deficits; Z79.02 Long term (current) use of antithrombotics/antiplatelets; Z79.82 Long term (current) use of aspirin
CPT/HCPCS: 70450; 99283